=== PATIENT | female | born 1980 | race Caucasian/White ===

== ENCOUNTER 2018-10-02 19:55 | Outpatient (CLI) | payer MEDICAID, SELFPAY ==
[2018-10-02 20:15] VITALS: BMI 23.4
[2018-10-02 21:09] LABS: Color, Urine Yellow (Yellow); Glucose, Dipstick Normal (Normal); Ketone-Dipstick 15 mg/dl (Negative); Leukocyte Esterase-Dipstick 100 /ul (Negative); Nitrite-Dipstick Negative (Negative); Occult Blood-Urine 10 /ul (Negative); Protein-Dipstick Negative (Negative); Specific Gravity, Urine 1.015 (1.002-1.030); Urine Bilirubin Dipstick Negative (Negative); Urine Clarity Sl. Cloudy (Clear); Urine Urobilinogen Normal (Normal); Urine pH 6.5 (5.0 - 8.0)
[2018-10-02 21:16] LABS: Amorphous Sediment 1+ URATE; Bacteria 2+ /hpf (None Seen); Mucous, Urine 1+ /hpf (<or=2+); Red Blood Cells-Urine 0-5 SEEN /hpf (0-5); Squamous Epithelial Cells - UA 0-5 SEEN /hpf (5-10); White Blood Cells 10-25 SEEN /hpf (0-5)
[2018-10-02 22:40] VITALS: RESP 18
--- NOTE | 2018-10-21 13:08 | OB.TRI.NOTE ---
History of Present Illness Reason For Visit: R/O LABOR Final SELVIN Source: LMP Allergies No Known Allergies Allergy (Verified 10/11/18 17:17) Laboratory Studies: Laboratory Tests 10/02/18 Range/Units 20:00 Urine Color Yellow (Yellow) Urine Clarity Sl. Cloudy (Clear) Urine pH 6.5 (5.0 - 8.0) Ur Specific [place] 1.015 (1.002-1.030) Urine Protein Negative (Negative) mg/dl Urine Glucose (UA) Normal (Normal) mg/dl Urine Ketones 15 H (Negative) mg/dl Urine Occult Blood 10 H (Negative) /ul Urine Nitrite Negative (Negative) Urine Bilirubin Negative (Negative) mg/dL Urine Urobilinogen Normal (Normal) mg/dl Ur Leukocyte Esterase 100 H (Negative) /ul Urine RBC 0-5 SEEN (0-5) /hpf Urine WBC 10-25 SEEN (0-5) /hpf Ur Squamous Epith Cells 0-5 SEEN (5-10) /hpf Amorphous Sediment 1+ URATE Urine Bacteria 2+ (None Seen) /hpf Urine Mucus 1+ (<or=2+) /hpf Physical Exam Vitals: Vital Signs Resp 18 10/02/18 22:40 Impression/Plan NST for false labor
--- OUTSIDE RECORDS SUMMARY | 2018-12-07 12:47 | XMS RPT_ITS ---
:1980 Author Organization OH[facility] Care Team Providers Name Role Phone SAMMI GRUBERNTOSH, ALMA Attending Unavailable NEYHART ESTRELLA, ALMA Attending Unavailable NEYHART ESTRELLA, ALMA Referring Unavailable JOHN POWERS Attending Unavailable NEYHART ESTRELLA, ALMA Referring Unavailable NEYHART ESTRELLA, ALMA Attending Unavailable NEYHART ESTRELLA, ALMA Referring Unavailable NEYHART ESTRELLA, ALMA Referring Unavailable NEYHART ESTRELLA, ALMA Attending Unavailable EULALIA BENAVIDEZ (MURAL ARTIST) Referring Unavailable NEYHART ESTRELLA, ALMA Referring Unavailable NEYHART ESTRELLA, ALMA Referring Unavailable NEYHART ESTRELLA, ALMA Referring Unavailable NEYHART ESTRELLA, ALMA Referring Unavailable NEYHART ESTRELLA, ALMA Attending Unavailable NEYHART ESTRELLA, ALMA Referring Unavailable POWERSSAVITAJOHN A Attending Unavailable NEYHART ESTRELLA, ALMA Referring Unavailable NEYHART ESTRELLA, ALMA Attending Unavailable NEYHART ESTRELLA, ALMA Referring Unavailable NEYHART ESTRELLA, ALMA Referring Unavailable NEYHART ESTRELLA, ALMA Attending Unavailable NEYHART ESTRELLA, ALMA Attending Unavailable NEYHART ESTRELLA, ALMA Referring Unavailable JOHN POWERS Attending Unavailable NEYHART ESTRELLA, ALMA Referring Unavailable NEYHART ESTRELLA, ALMA Attending Unavailable NEYHART ESTRELLA, ALMA Referring Unavailable NEYHART ESTRELLA, ALMA Attending Unavailable NEYHART ESTRELLA, ALMA Referring Unavailable NEYHART ESTRELLA, ALMA Referring Unavailable NEYHART ESTRELLA, ALMA Referring Unavailable NEYHART ESTRELLA, ALMA Referring Unavailable Barrera Lock Attending Unavailable Barrera Lock Referring Unavailable Primay Care Physicia, No Primary Care Unavailable Primay Care Physicia, No Primary Care Unavailable Norma Hatch Admitting Unavailable Norma Hatch Attending Unavailable PROBLEMS PROBLEMS DATE TYPE CONDITION / CODE ATTENDING STATUS SOURCE 08/13/2018 Active Anemia complicating NA Active [facility] , third [place] trimester / Repository O99.013(ICD-10) 09/15/2018 Active Supervision of NA Active [facility] elderly [place] multigravida, third Repository trimester / O09.523(ICD-10) 09/15/2018 Active 33 weeks gestation NA Active [facility] of / [place] Z3A.33(ICD-10) Repository 08/12/2018 Active Supervision of NA Active [facility] elderly [facility] [place] multigravida, second Repository trimester / O09.522(ICD-10) 08/12/2018 Active 28 weeks gestation NA Active [facility] of / [place] Z3A.28(ICD-10) Repository 05/03/2016 Active Family history of NA Active [facility] other congenital [place] malformations, Repository deformations and chromosomal abnormalities / Z82.79(ICD-10) 06/13/2018 Active Maternal care for NA Active [facility] other abnormalities [place] of cervix, Repository unspecified trimester / O34.40(ICD-10) 06/13/2018 Active Other specified NA Active [facility] postprocedural [place] states / Repository Z98.890(ICD-10) 06/13/2018 Active 18 weeks gestation NA Active [facility] of / [place] Z3A.18(ICD-10) Repository 04/01/2018 Active Personal history of NA Active [facility] other complications [place] of , Repository childbirth and the puerperium / Z87.59(ICD-10) 04/23/2018 Active Supervision of NA Active [facility] elderly [place] multigravida, first Repository trimester / O09.521(ICD-10) 04/23/2018 Active Supervision of high NA [facility] risk , [place] unspecified, first Repository trimester / O09.91(ICD-10) 04/01/2018 Active Unknown / NEYHART Active [facility] UNK(Unknown) ESTRELLA, [place] ALMA Repository PROCEDURES PROCEDURES No Procedure Records FoundRESULTS RESULTS OPERATIVE REPORT Observed: 10/11/2018 Status: F Source: [place] 9:25 PM [facility] REPOSITORY [facility] Medical Records Department [address] [place] [address] Operative Report 10/11/182113 MR#: [id number] Acct: [id number] Name: SEEMA LONGO Rep #: [id number] : 1980 38 From: Leydi Nash CNM PCP: Care Physician, No Primary Status: ADM IN Location: GX120-3 - Problem List (1) AMA (advanced maternal age) multigravida 35+ Status: Acute (2) History of cervical LEEP biopsy affecting care of mother, antepartum Status: Acute (3) History of gestational hypertension Status: Acute (4) Anemia affecting Status: Acute Vaginal Delivery Maternal Presentation: Active Labor Amniotic Membrane Rupture Type: Artificial Amniotic Fluid Description: Clear Final SELVIN: 10/30/18 Gestational age: 37 Weeks and 2 Days Date of Procedure: 10/11/18 Pre-Operative Diagnosis: Active Labor Post-Operative Diagnosis: Surgery/ Procedure Performed: Spontaneous Vaginal Delivery Type of Anesthesia: None Description of Procedure: Progressed to complete with urge to push, unmedicated. of viable female infant over 1st degree perineal laceration. APGARS 9,9 with weight pending. Infant head delivered with tight nuchal cord around neck, unable to be reduced. Maternal pushing efforts and delivered through nuchal cord without complications. Infant placed on maternal abdomen, spontaneous cry, mouth and nares suctioned for secretions. Pitocin started for active 3rd stage management. Placenta delivered with maternal effort, intact, 2 vessel cord. Perineum inspected and revealed 1st degree perineal laceration. Repaired with single figure eight suture without analgesia, patient tolerated well. Fundus firm, hemostasis achieved, EBL 100ml. Mom and baby stable, planning to breastfeed, family bonding well. notified of delivery. Presentation: Vertex, PANDA Placental Delivery Description: Spontaneous Placenta Disposition: [facility] Cord Vessel Description: 2 Vessels Nuchal Cord Compression: Without compression Cord Entanglement: Around neck x 1, tight Estimated Blood Loss: 100ml A gender: Female (1 minute): 9 (5 minute): 9 Episiotomy Description: None Laceration: Perineal Extension/lac, 1st degree Medications given after delivery: IV Pitocin 10/11/182124 <Electronically signed by Leydi Nash CNM> Date Leydi Nash CNM CC: YULISA Nash; No Primary Care Physician Signed CBC-COMPLETE BLOOD CNT Collected: 10/11/2018 Status: F Source: [place] NO DIFF 5:45 PM [facility] REPOSITORY TYPE CODE TESTS RESULT OUT OF RANGE REFERENCE UNITS LAB L100.1000 4.4-11.0 K/mm3 Normal WBC 6.4 LAB L100.1200 4.2-5.4 M/mm3 Normal RBC 4.30 LAB L100.1300 12.0-15.0 g/dl Low HGB 10.8 LAB L100.1400 37-47 % Low HCT 34.8 LAB L100.1500 81-99 fL Low MCV 80.9 LAB L100.1600 27.0-32.0 pg Low MCH 25.1 LAB L100.1700 32-36 g/gl Low MCHC 31.0 LAB L100.1810 11.6-14.6 % High RDW CV 20.7 LAB L100.1820 35.1-43.9 fl High RDW SD 58.2 LAB L100.1900 150-450 K/mm3 Low PLT 146 LAB L100.2000 6.2-12.0 fl Normal MPV 10.8 Performed By: #### L100.0500, L100.4500 #### [facility] [address] [place], [address] DIFFERENTIAL COMMENT Collected: 10/11/2018 Status: F Source: [place] 5:45 PM [facility] REPOSITORY TYPE CODE TESTS RESULT OUT OF RANGE REFERENCE UNITS LAB L100.4500 Normal SMEAR COMMENT SEE COMMENT Result Comment: ANISOCYTOSIS=1+ Performed By: #### L100.0500, L100.4500 #### [facility] [address] [place], [address] TYPE AND SCREEN Collected: 10/11/2018 Status: F Source: [place] 5:45 PM [facility] REPOSITORY Order Comment: Reason for Type AND Screen/Red Cells: ROUTINE TYPE CODE TESTS RESULT OUT OF RANGE REFERENCE UNITS LAB B10.0800 O Normal BLOOD TYPE GEL NEGATIVE LAB B100.4000 Test Normal Antibody not performed Screen Performed By: #### B101.7450 #### [facility] [address] [place], [address] ANTIBODY SCREEN, Collected: 10/11/2018 Status: F Source: [place] INDIRECT 5:45 PM [facility] REPOSITORY TYPE CODE TESTS RESULT OUT OF RANGE REFERENCE UNITS LAB B100.7000 Normal ANTIBODY NEGATIVE SCREEN Performed By: #### B100.7000 #### [facility] [address] [place], [address] (ROM) RUPTURE OF Collected: 10/11/2018 Status: F Source: [place] 4:40 PM [facility] REPOSITORY TYPE CODE TESTS RESULT OUT OF RANGE REFERENCE UNITS LAB L205.1310 Negative Normal ROM Negative Result Comment: Amniotic fluid not present indicates No Rupture of Membranes at time of specimen collection. Performed By: #### L205.1000 #### [facility] [address] [place], [address] PROGRESS Observed: 10/07/2018 Status: COMPLETED Source: [place] 11:44 AM [facility] REPOSITORY HNO ID: [id number] Author: Alma Estrella Service: (none) Author Type: Physician Type: Progress Notes Filed: 10/07/2018 11:44 AM Note Text: NST SUMMARY PROVIDER ASSESSMENT AND INTERPRETATION Seema Longo is a 38 year old female, , who is at 36w5d with an SELVIN of 10/30/2018, by Last Menstrual Period dating method. Indications for NST: AMA Baseline: 145 Variability: Moderate Accelerations: Present 15 X 15 Decelerations: None Contractions: TOCO: Irregular Interpretation: Category I and Reactive SIGNATURE: Alma Conteh MD Observed: 10/02/2018 Status: F Source: [place] CULTURE, URINE 9:40 PM [facility] REPOSITORY Urine Culture Below infection level. ORGANISM 1: Mixed Gram Positive Organisms [place] Count <1000 Performed By: #### M100.0650 #### [facility] [address] [place], [address] URINALYSIS, COMPLETE Collected: 10/02/2018 Status: F Source: [place] 8:00 PM [facility] REPOSITORY Order Comment: How was Urine Obtained? CLEAN CATCH TYPE CODE TESTS RESULT OUT OF RANGE REFERENCE UNITS LAB L400.3000 Yellow COLOR Normal Yellow LAB L400.3050 Clear Normal CLARITY Sl. Cloudy LAB L400.3200 Normal mg/dl Normal GLUCOSE, UR Normal LAB L400.3300 Negative mg/dL Normal BILIRUBIN URINE Negative LAB L400.3400 Negative mg/dl High 15 KETONE UR LAB L400.3465 1.002-1.030 Normal SP.GR. DIPSTX 1.015 LAB L400.3550 5.0 - 8.0 pH UR Normal 6.5 LAB L400.3600 Negative mg/dl PROT Normal DIPSTX Negative LAB L400.3700 Normal mg/dl Normal UROBILI Normal LAB L400.3750 Negative Normal NITRITE UR Negative LAB L400.3780 Negative /ul High 10 OCCULT BLOOD-UR LAB L400.3800 Negative /ul High LEUK ESTERASE 100 LAB L400.4050 0-5 /hpf WBC Normal 10-25 SEEN LAB L400.4100 0-5 /hpf Normal RBC-UA 0-5 SEEN LAB L400.4150 5-10 /hpf SQUAM Normal EPI 0-5 SEEN LAB L400.4300 None Seen /hpf 2+ Normal BACTERIA LAB L400.4350 <or=2+ /hpf 1+ Normal MUCUS, URINE LAB L400.4900 1+ Normal AMORPHOUS URATE Performed By: #### L400.0001 #### [facility] [address] [place], [address] PROGRESS Observed: 09/30/2018 Status: COMPLETED Source: [place] 11:48 AM [facility] REPOSITORY HNO ID: [id number] Author: Asya Crews LPN Service: (none) Author Type: (none) Type: Progress Notes Filed: 09/30/2018 11:54 AM Note Text: The patient is here for an injection of Celestone. Dose: 12mg/2mL Amount wasted: 0. 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 Lot #: [id number] Expiration Date: 09/15/2019 Asya Crews LPN CNNURSE Observed: 09/30/2018 Status: COMPLETED Source: [place] 11:30 AM [facility] REPOSITORY Nurse Visit (WOOB) SEEMA LONGO ([id number]) 1980 F Date Time Provider Department 09/30/18 11:30 AM [employer]URSE [employer] OFFICER [facility] During your visit today, we recorded the following information about you: Asya Crews LPN 09/30/2018 11:54 AM Signed The patient is here for an injection of Celestone. Dose: 12mg/2mL Amount wasted: 0. 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 Lot #: [id number] Expiration Date: 09/15/2019 Asya Crews LPN Referring Provider: ALMA PIKE [[id number]] Allergies As of Date: 09/30/2018 Noted Allergy Reaction POISON CHARLIE 02/08/2015 2 - Rash Date Reviewed: 09/29/2018 Reviewed by: Lorin Trejo Ma - Fully Assessed Reason for Visit: Injections [199] Primary Visit Diagnosis:Threatened premature labor in third trimester [O47.03] Order(s):THER/PROPH/DIAG INJ, SC/IM [[id number]] Order #: [id number] Prescriptions as of 09/30/2018 Sig: FAMOTIDINE 20 MG TABLET Take 1 tablet by mouth twice * FERROUS SULFATE ER 142 MG (45* Take 1 tablet by mouth once d* VITAMIN,CALCIUM,MINE* Take 1 tablet by mouth. Problem List As Of Date 09/30/2018 Noted Resolved Contraception [Z30.9] INVALID FOR*05/02/2012 Hemorrhagic cyst of ovary [N83.209] INVALID FOR*02/06/2013 Abdominal pain, bilateral lower quadrant [R10.3*INVALID FOR*02/06/2013 with uncertain dates [Z34.90] INVALID FOR*02/06/2013 More... Hemorrhoids [K64.9] INVALID FOR*04/27/2013 More... Family history of Down syndrome [Z82.79] INVALID FOR*04/27/2013 More... History of LEEP (loop electrosurgical excision *INVALID FOR*04/27/2013 More... Immunization due [Z23] INVALID FOR*02/06/2013 More... Threatened [O20.0] INVALID FOR*02/06/2013 More... UTI (urinary tract infection) during *INVALID FOR*04/27/2013 More... Gastroesophageal reflux in pregancy [O99.619, K*INVALID FOR*04/27/2013 SUPRF HIGH RISK NEC [V23.89] [O09.899]INVALID FOR*04/27/2013 More... Advanced maternal age (AMA) in [IMO00*INVALID FOR*09/01/2014 More... Short interval between pregnancies complicating*INVALID FOR*09/01/2014 More... Breast feeding status of mother [Z39.1] INVALID FOR*09/01/2014 More... Prior complicated by IUGR, antepartum*INVALID FOR*09/01/2014 More... History of LEEP (loop electrosurgical excision *INVALID FOR*05/03/2016 More... History of hemorrhoids [Z87.19] INVALID FOR*09/01/2014 More... Family history of Down syndrome [Z82.79] INVALID FOR*09/01/2014 More... Need for rhogam due to Rh negative mother [Z29.*INVALID FOR*09/01/2014 GBS (group B streptococcus) UTI complicating pr*INVALID FOR*09/01/2014 More... Allergy to poison charlie [Z91.09] INVALID FOR*09/01/2014 More... labor [O60.00] INVALID FOR*09/01/2014 More... Secondary oligomenorrhea [N91.4] INVALID FOR*03/09/2016 Advanced maternal age in multigravida [O09.529] INVALID FOR* More... Patient requested diagnostic testing [Z01.89] INVALID FOR* More... History of prior with IUGR [Z*INVALID FOR* More... History of loop electrosurgical excision proced*INVALID FOR* More... History of colitis [Z87.19] INVALID FOR* More... Family history of Down syndrome [Z82.79] INVALID FOR* More... Nausea and vomiting in [O21.9] INVALID FOR* More... Rh negative status during [O09.899, Z*INVALID FOR* More... History of gestational hypertension [Z87.59] INVALID FOR* More... Anemia during in third trimester [O99*INVALID FOR* More... Iron deficiency anemia [D50.9] INVALID FOR* Iron adverse reaction [T45.4X5A] INVALID FOR* More... Encounter Status:Closed by ASYA CREWS LPN on 09/30/18 GROUP B STREP PCR Collected: 09/29/2018 Status: F Source: [place] 11:15 AM [facility] REPOSITORY TYPE CODE TESTS RESULT OUT OF REFERENCE UNITS RANGE LAB GBPCRT Negative for GROUP Group B B STREP PCR Streptococcus by PCR. Performed By: #### GBPCR #### [facility] [address] [place], [place] [address] PROGRESS Observed: 09/21/2018 Status: COMPLETED Source: [place] 11:46 AM [facility] REPOSITORY HNO ID: [id number] Author: Eulalia Benavidez Service: (none) Author Type: Nurse Practitioner Type: Progress Notes Filed: 09/21/2018 12:54 PM Note Text: Subjective The history is provided by the patient. No seismic interpreter was used. HPI Seema Longo is a 38 year old female who presents today for CC of cough and congestion that started 7 days ago. She has been using tylenol and robitussin with short term relief. 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 + movement, no bleeding or LOF BP 102/78 Pulse 119 Temp 37.2 ?C (98.9 ?F) (Tympanic) Resp 16 Wt 56.2 kg (124 lb) LMP 01/23/2018 SpO2 99% BMI 21.97 kg/m? 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 Pap smear (cervix) - Anemia during in third trimester 08/13/2018 - Colitis - Hemorrhoids - Infertility, female - Other and unspecified ovarian cyst Ovarian cyst I have confirmed and edited as necessary, the [facility] Review of Systems Constitutional: Negative for chills and fever. HENT: Positive for congestion. Negative for ear pain, sinus pain and sore throat. Respiratory: Positive for cough. Musculoskeletal: Negative for myalgias. Neurological: Negative for headaches. Objective Physical Exam Constitutional: She is well-developed, well-nourished, and in no distress. HENT: Head: Normocephalic and atraumatic. Right Ear: Tympanic membrane, external ear and ear canal normal. Left Ear: Tympanic membrane and ear canal normal. Nose: Mucosal edema and rhinorrhea present. Mouth/Throat: Uvula is midline, oropharynx is clear and moist and mucous membranes are normal. No oropharyngeal exudate, posterior oropharyngeal edema, posterior oropharyngeal erythema or tonsillar abscesses. Thin Clear Post Nasal Drainage Pulmonary/Chest: Effort normal and breath sounds normal. She has no decreased breath sounds. She has no wheezes. She has no rhonchi. She has no rales. Lymphadenopathy: Head (right side): No submental, no submandibular and no tonsillar adenopathy present. Head (left side): No submental, no submandibular and no tonsillar adenopathy present. She has no cervical adenopathy. Right cervical: No superficial cervical adenopathy present. Left cervical: No superficial cervical adenopathy present. Neurological: She is alert. Skin: Skin is warm and dry. Psychiatric: Affect normal. Nursing note and vitals reviewed. ASSESSMENT/PLAN: 1. URI with cough and congestion - ICD9: 465.9, ICD10: J06.9 - Discussed viral etiology and rationale for treatment. Rest, increase water intake Tylenol as needed for fever or pain. Salt water gargles, chloraseptic spray or lozenges as needed for sore throat. Nasal Saline spray as needed Cool mist humidifier at night Tylenol (generic acetaminophen) 500 mg-2 tabs every 8 hrs. as needed for fever and aches -Sudafed (generic is fine), behind the counter, 1-2x30 mg tabs twice daily as needed for congestion Flonase or Nasonex 1 spray each nostril two times a day. safe medication list given. * Seek medical care immediately, call 911, go to ER if you have chest pain, difficulty breathing, shortness of breath, inability to swallow. Diagnosis and treatment plan were discussed and questions were answered to the patient's satisfaction. Pt acknowledged understanding of concepts and follow up plan. Specific signs and symptoms that would indicate the need for higher level of care were discussed in detail warranting prompt ER evaluation. Eulalia Benavidez APRN.MURAL ARTIST CNOV Observed: 09/21/2018 Status: COMPLETED Source: [place] 11:30 AM [facility] REPOSITORY [facility] SE[facility]ON[facility] ([id number]) 1980 F Date Time Provider Department 09/21/18 11:30 AM EULALIA BENAVIDEZ (POLA) [email or web address] During your visit today, we recorded the following information about you: Temperature Pulse Respiration Blood pressure 98.9 degrees 119/minute 16/minute 102/78 Weight 56.2 kg Eulalia Benavidez APRN.CNP 09/21/2018 12:54 PM Signed Subjective The history is provided by the patient. No seismic interpreter was used. HPI Seema Longo is a 38 year old female who presents today for CC of cough and congestion that started 7 days ago. She has been using tylenol and robitussin with short term relief. 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 + movement, no bleeding or LOF BP 102/78 Pulse 119 Temp 37.2 ?C (98.9 ?F) (Tympanic) Resp 16 Wt 56.2 kg (124 lb) LMP 01/23/2018 SpO2 99% BMI 21.97 kg/m? 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 Pap smear (cervix) - Anemia during in third trimester 08/13/2018 - Colitis - Hemorrhoids - Infertility, female - Other and unspecified ovarian cyst Ovarian cyst I have confirmed and edited as necessary, the [facility] Review of Systems Constitutional: Negative for chills and fever. HENT: Positive for congestion. Negative for ear pain, sinus pain and sore throat. Respiratory: Positive for cough. Musculoskeletal: Negative for myalgias. Neurological: Negative for headaches. Objective Physical Exam Constitutional: She is well-developed, well-nourished, and in no distress. HENT: Head: Normocephalic and atraumatic. Right Ear: Tympanic membrane, external ear and ear canal normal. Left Ear: Tympanic membrane and ear canal normal. Nose: Mucosal edema and rhinorrhea present. Mouth/Throat: Uvula is midline, oropharynx is clear and moist and mucous membranes are normal. No oropharyngeal exudate, posterior oropharyngeal edema, posterior oropharyngeal erythema or tonsillar abscesses. Thin Clear Post Nasal Drainage Pulmonary/Chest: Effort normal and breath sounds normal. She has no decreased breath sounds. She has no wheezes. She has no rhonchi. She has no rales. Lymphadenopathy: Head (right side): No submental, no submandibular and no tonsillar adenopathy present. Head (left side): No submental, no submandibular and no tonsillar adenopathy present. She has no cervical adenopathy. Right cervical: No superficial cervical adenopathy present. Left cervical: No superficial cervical adenopathy present. Neurological: She is alert. Skin: Skin is warm and dry. Psychiatric: Affect normal. Nursing note and vitals reviewed. ASSESSMENT/PLAN: 1. URI with cough and congestion - ICD9: 465.9, ICD10: J06.9 - Discussed viral etiology and rationale for treatment. Rest, increase water intake Tylenol as needed for fever or pain. Salt water gargles, chloraseptic spray or lozenges as needed for sore throat. Nasal Saline spray as needed Cool mist humidifier at night Tylenol (generic acetaminophen) 500 mg-2 tabs every 8 hrs. as needed for fever and aches -Sudafed (generic is fine), behind the counter, 1-2x30 mg tabs twice daily as needed for congestion Flonase or Nasonex 1 spray each nostril two times a day. safe medication list given. * Seek medical care immediately, call 911, go to ER if you have chest pain, difficulty breathing, shortness of breath, inability to swallow. Diagnosis and treatment plan were discussed and questions were answered to the patient's satisfaction. Pt acknowledged understanding of concepts and follow up plan. Specific signs and symptoms that would indicate the need for higher level of care were discussed in detail warranting prompt ER evaluation. Eulalia Benavidez APRN.POLA Benavidez APRN.CNP 09/21/2018 11:59 AM Signed ASSESSMENT/PLAN: 1. URI with cough and congestion - ICD9: 465.9, ICD10: J06.9 - Discussed viral etiology and rationale for treatment. Rest, increase water intake Tylenol as needed for fever or pain. Salt water gargles, chloraseptic spray or lozenges as needed for sore throat. Nasal Saline spray as needed Cool mist humidifier at night Tylenol (generic acetaminophen) 500 mg-2 tabs every 8 hrs. as needed for fever and aches -Sudafed (generic is fine), behind the counter, 1-2x30 mg tabs twice daily as needed for congestion Flonase or Nasonex 1 spray each nostril two times a day. Referring Provider: SELF [200] Allergies As of Date: 09/21/2018 Noted Allergy Reaction POISON CHARLIE 02/08/2015 2 - Rash Date Reviewed: 09/21/2018 Reviewed by: Eulalia ([facility]) Reema - Fully Assessed Reason for Visit: Cough [28] Cmt: x1 wk with some SOB; wants to make sure her of O2 is ok Primary Visit Diagnosis:URI with cough and congestion [J06.9] Prescriptions as of 09/21/2018 Sig: FAMOTIDINE 20 MG TABLET Take 1 tablet by mouth twice * FERROUS SULFATE ER 142 MG (45* Take 1 tablet by mouth once d* VITAMIN,CALCIUM,MINE* Take 1 tablet by mouth. Problem List As Of Date 09/21/2018 Noted Resolved Contraception [Z30.9] INVALID FOR*05/02/2012 Hemorrhagic cyst of ovary [N83.209] INVALID FOR*02/06/2013 Abdominal pain, bilateral lower quadrant [R10.3*INVALID FOR*02/06/2013 with uncertain dates [Z34.90] INVALID FOR*02/06/2013 More... Hemorrhoids [K64.9] INVALID FOR*04/27/2013 More... Family history of Down syndrome [Z82.79] INVALID FOR*04/27/2013 More... History of LEEP (loop electrosurgical excision *INVALID FOR*04/27/2013 More... Immunization due [Z23] INVALID FOR*02/06/2013 More... Threatened [O20.0] INVALID FOR*02/06/2013 More... UTI (urinary tract infection) during *INVALID FOR*04/27/2013 More... Gastroesophageal reflux in pregancy [O99.619, K*INVALID FOR*04/27/2013 SUPRF HIGH RISK NEC [V23.89] [O09.899]INVALID FOR*04/27/2013 More... Advanced maternal age (AMA) in [IMO00*INVALID FOR*09/01/2014 More... Short interval between pregnancies complicating*INVALID FOR*09/01/2014 More... Breast feeding status of mother [Z39.1] INVALID FOR*09/01/2014 More... Prior complicated by IUGR, antepartum*INVALID FOR*09/01/2014 More... History of LEEP (loop electrosurgical excision *INVALID FOR*05/03/2016 More... History of hemorrhoids [Z87.19] INVALID FOR*09/01/2014 More... Family history of Down syndrome [Z82.79] INVALID FOR*09/01/2014 More... Need for rhogam due to Rh negative mother [Z29.*INVALID FOR*09/01/2014 GBS (group B streptococcus) UTI complicating pr*INVALID FOR*09/01/2014 More... Allergy to poison charlie [Z91.09] INVALID FOR*09/01/2014 More... labor [O60.00] INVALID FOR*09/01/2014 More... Secondary oligomenorrhea [N91.4] INVALID FOR*03/09/2016 Advanced maternal age in multigravida [O09.529] INVALID FOR* More... Patient requested diagnostic testing [Z01.89] INVALID FOR* More... History of prior with IUGR [Z*INVALID FOR* More... History of loop electrosurgical excision proced*INVALID FOR* More... History of colitis [Z87.19] INVALID FOR* More... Family history of Down syndrome [Z82.79] INVALID FOR* More... Nausea and vomiting in [O21.9] INVALID FOR* More... Rh negative status during [O09.899, Z*INVALID FOR* More... History of gestational hypertension [Z87.59] INVALID FOR* More... Anemia during in third trimester [O99*INVALID FOR* More... Other instructions from your clinician: ASSESSMENT/PLAN: 1. URI with cough and congestion - ICD9: 465.9, ICD10: J06.9 - Discussed viral etiology and rationale for treatment. Rest, increase water intake Tylenol as needed for fever or pain. Salt water gargles, chloraseptic spray or lozenges as needed for sore throat. Nasal Saline spray as needed Cool mist humidifier at night Tylenol (generic acetaminophen) 500 mg-2 tabs every 8 hrs. as needed for fever and aches -Sudafed (generic is fine), behind the counter, 1-2x30 mg tabs twice daily as needed for congestion Flonase or Nasonex 1 spray each nostril two times a day. Encounter Status:Closed by EULALIA BENAVIDEZ CNP on 09/21/18 IRON AND TIBC Collected: 09/17/2018 Status: F Source: [place] 10:25 AM [facility] REPOSITORY TYPE CODE TESTS RESULT OUT OF REFERENCE UNITS RANGE LAB IRN 41-186 ug/dL Low Iron 21 LAB TIBC 232-386 ug/dL TIBC High >521 LAB SAT 15-57 % Low Transferrin Saturatn <4 Performed By: #### IRON, FERR #### [facility] [address] [address] FERRITIN Collected: 09/17/2018 Status: F Source: [place] 10:25 AM [facility] REPOSITORY TYPE CODE TESTS RESULT OUT OF REFERENCE UNITS RANGE LAB FERR 14.7-205.1 ng/mL Low Ferritin 12.8 Performed By: #### IRON, FERR #### [facility] [address] [place] [address] CBC AND DIFFERENTIAL Collected: 09/15/2018 Status: F Source: [place] 10:38 AM [facility] REPOSITORY TYPE CODE TESTS RESULT OUT OF REFERENCE UNITS RANGE LAB WBC 3.70-11.00 k/uL WBC 8.72 LAB RBC 3.90-5.20 m/uL Low RBC 3.78 LAB HGB 11.5-15.5 g/dL Low Hemoglobin 9.1 LAB HCT 36.0-46.0 % Low Hematocrit 29.7 LAB MCV 80.0-100.0 fL Low MCV 78.6 LAB MCH 26.0-34.0 pG Low MCH 24.1 LAB MCHC 30.5-36.0 g/dL MCHC 30.6 LAB RDWCV 11.5-15.0 % RDW-CV 13.1 LAB PLTCT 150-400 k/uL Platelet Count 194 LAB MPV 9.0-12.7 fL MPV 11.3 LAB ANEUT % Neut% 74.5 LAB AANEUT 1.45-7.50 k/uL Abs Neut 6.50 LAB ALYMP % Lymph% 15.5 LAB AALYMP 1.00-4.00 k/uL Abs Lymph 1.35 LAB AMONO % [place]% 6.2 LAB AAMONO <0.87 k/uL Abs [place] 0.54 LAB AEOS % Eosin% 3.1 LAB AAEOS <0.46 k/uL Abs Eosin 0.27 LAB ABASO % Baso% 0.7 LAB AABASO <0.11 k/uL Abs Baso 0.06 LAB AUNRBC 0 /100 WBC NRBCs 0.0 LAB ABNRBC <0.01 k/uL Absolute nRBC <0.01 LAB DTYP DTYPE Auto Diff Performed By: #### CBCDIF #### [facility] [address] [place], [place] [address] PROGRESS Observed: 09/15/2018 Status: COMPLETED Source: [place] 10:28 AM [facility] REPOSITORY HNO ID: [id number] Author: John Powers Service: (none) Author Type: Physician Type: Progress Notes Filed: 09/15/2018 10:32 AM Note Text: A morin intrauterine The size is AGA at the 23 rd% The HC measures < 5 th% (at 1 SD below th mean for the gestational age). The intracranial anatomy appears normal. This is a normal variant Estimated Date of Delivery: 10/30/18 EGA = 33w4d The anatomy appears normal in the areas visualized. The amniotic fluid volume is normal. There is no evidence of effusions and/ or hydrops. The placenta is fundal. RECOMMENDATIONS: - Self-assessment of kick counts - Follow up ultrasound as clinically indicated PROGRESS Observed: 09/15/2018 Status: COMPLETED Source: [place] 10:17 AM [facility] REPOSITORY HNO ID: [id number] Author: oLrin Trejo Ma Service: (none) Author Type: (none) Type: Progress Notes Filed: 09/15/2018 11:24 AM Note Text: Patient identified by name and date of . Seema Longo presents today for a vaccination of Tdap. Patient denies an allergy to latex: yes Patient denies a severe (life-threatening) allergy to a previous dose of Tdap, DTP, DTaP, DT or Td vaccine. Yes Patient denies history of epilepsy or neurological problems: Yes Patient is afebrile and denies being moderately or severely ill: Yes Patient denies history of Guillain-[place] Syndrome (a severe paralytic illness): Yes Tdap Adacel injection was given without incident. See immunizations for details of immunizations administered today. VIS sheet provided: Yes Provider carla was present in office at time of injection. Lorin Trejo Ma CBC AND DIFFERENTIAL Collected: 08/12/2018 Status: F Source: [place] 10:26 AM [facility] REPOSITORY TYPE CODE TESTS RESULT OUT OF REFERENCE UNITS RANGE LAB WBC 3.70-11.00 k/uL WBC 7.29 LAB RBC 3.90-5.20 m/uL Low RBC 3.72 LAB HGB 11.5-15.5 g/dL Low Hemoglobin 9.7 LAB HCT 36.0-46.0 % Low Hematocrit 30.2 LAB MCV 80.0-100.0 fL MCV 81.2 LAB MCH 26.0-34.0 pG MCH 26.1 LAB MCHC 30.5-36.0 g/dL MCHC 32.1 LAB RDWCV 11.5-15.0 % RDW-CV 11.9 LAB PLTCT 150-400 k/uL Platelet Count 196 LAB MPV 9.0-12.7 fL MPV 11.1 LAB ANEUT % Neut% 71.5 LAB AANEUT 1.45-7.50 k/uL Abs Neut 5.21 LAB ALYMP % Lymph% 18.7 LAB AALYMP 1.00-4.00 k/uL Abs Lymph 1.36 LAB AMONO % [place]% 6.3 LAB AAMONO <0.87 k/uL Abs [place] 0.46 LAB AEOS % Eosin% 2.7 LAB AAEOS <0.46 k/uL Abs Eosin 0.20 LAB ABASO % Baso% 0.8 LAB AABASO <0.11 k/uL Abs Baso 0.06 LAB AUNRBC 0 /100 WBC NRBCs 0.0 LAB ABNRBC <0.01 k/uL Absolute nRBC <0.01 LAB DTYP DTYPE Auto Diff Performed By: #### CBCDIF #### [facility] [address] [id number] 50G, 1HR GEST. Collected: 08/12/2018 Status: F Source: [place] [facility]CRN 10:26 AM [facility] REPOSITORY TYPE CODE TESTS RESULT OUT OF REFERENCE UNITS RANGE LAB GLUP 74-134 mg/dL Glucose 104 Screen, Preg Result Comment: [place] [employer] of [employer]stetric[employer] and Gynecologists (Rodgers/Alfonso) guidelines state a gestational diabetes mellitus positive screen is made, in women not previously diagnosed with overt diabetes, when the 1 hr plasma glucose level is equal to or above 140 mg/dL. The [facility] Commercial Account Officer and [facility] recommends a 135 mg/dL cutoff. Performed By: #### GLTGST #### [facility] [address] [place] [address] ANTIBODY SCREEN Collected: 08/12/2018 Status: F Source: [place] 10:26 AM [facility] REPOSITORY TYPE CODE TESTS RESULT OUT OF REFERENCE UNITS RANGE LAB % Antibody NEG Screen Performed By: #### ASCR #### [address] [place] [id number] PROGRESS Observed: 06/30/2018 Status: COMPLETED Source: [place] 10:22 AM [facility] REPOSITORY HNO ID: [id number] Author: Lorin Trejo Ma Service: (none) Author Type: (none) Type: Progress Notes Filed: 06/30/2018 10:54 AM Note Text: 38 year old female here for INACTIVATED INFLUENZA VACCINE. 0110-1323 Season Patient is identified by name and date of : Yes [] CONTRAINDICATIONS color enhanced section Age less than 6 months? No Allergy to eggs, chicken, chicken feathers, or chicken dander? No Allergy to thimerosal (a preservative) or formaldehyde, gelatin? No History of severe reaction to any vaccine component or a previous dose of influenza vaccination? No History of Guillain-[place] Syndrome within 6 weeks after a previous influenza vaccine? No Patient is not moderately or severely ill? No Current temperature greater or equal to 100.4F? No History of Bone Marrow Transplant prior 6 months or solid organ transplant in the past 3 months ? No History of fainting after a prior injection or medical procedure? No- ? If patient has fainted in the past, the CDC recommends sitting or lying down for 15 minutes after the vaccination. [] VERIFICATION color enhanced section Was the answer Yes for any of the above contraindications? No contraindications present. Acceptable to proceed with vaccine. Patient/guardian agrees the above answers are true to the best of their knowledge? Yes Flu vaccine information sheet given? Yes See immunization activity in [facility] for details of immunizations adminstered today. Patient age: [age] year old For The 9786-5594 Flu Season 6-35 months old: Fluzone 0.25 ml - IM (Preservative Free) 3 years of age: Fluzone 0.5 ml - IM (Preservative Free) 3 years and older: Fluzone 0.5 ml- IM-(with Preservatives) 65+ years old: 2-49 years old Fluzone High-Dose 0.5 ml - IM (Preservative Free) FLUMIST- intranasal REMEMBER: If patient is less than 9 years of age and this is the first vaccine of Influenza to be received in any flu season, they should receive a second dose in one months time. ALPHA FETO MATERNAL Collected: 06/13/2018 Status: F Source: [place] 11:05 AM [facility] REPOSITORY TYPE CODE TESTS RESULT OUT OF REFERENCE UNITS RANGE LAB PREINT Screen Negative Interp LAB AFPM View Note results in Scanned Documents link when available. Performed By: #### AFPMAT #### [facility] [address] [place], [place] [address] PROGRESS Observed: 06/04/2018 Status: COMPLETED Source: [place] 1:10 PM [facility] REPOSITORY HNO ID: [id number] Author: John Powers Service: (none) Author Type: Physician Type: Progress Notes Filed: 06/04/2018 1:11 PM Note Text: A morin? fetus in utero with symmetric measurements Adequate growth (AGA). Estimated Date of Delivery: 10/30/18 EGA = 18w6d The anatomy appears normal. There are no evident malformations and /or effusions. No genetic markers are noted. The amniotic fluid volume is within normal limits. The patient was counseled as to the sonographic findings. The limitations of ultrasound in detecting malformations and chromosomal anomalies has been addressed. Body mass index is 20.73 kg/m?. RECOMMENDATIONS: - Follow up ultrasound as clinically indicated - Genetic testing is negative NIPS. PROGRESS Observed: 04/23/2018 Status: COMPLETED Source: [place] 11:29 AM [facility] REPOSITORY HNO ID: [id number] Author: John Powers Service: (none) Author Type: Physician Type: Progress Notes Filed: 04/23/2018 11:30 AM Note Text: A single intrauterine gestational sac is noted with a regular outline. There is no decidual hemorrhage. The yolk sac is visualized and shows normal shape and echogenicity. A living single fetus is noted. The heart rate is within normal range The CRL corresponds to the gestational age. Estimated Date of Delivery: 10/30/18 EGA = 12w6d Negative NT screen for Trisomy 21. The sensitivity of nuchal translucency measurement for Trisomy 21 is ~60%. The anatomy appears normal in the areas visualized. The limitations of ultrasound have been discussed with the patient. RECOMMENDATIONS: - Seema is interested in NIPT. The test will be performed. If the results are positive, invasive genetic testing (CVS or genetic amniocentesis ) will be offered. - I recommend scan at 18-20 weeks - Consideration should be made for checking AFP between 15 and 22 weeks if screening for open neural tube defect is desired. [id number] PLUS Collected: 04/23/2018 Status: F Source: [place] 10:48 AM [facility] REPOSITORY TYPE CODE TESTS RESULT OUT OF REFERENCE UNITS RANGE LAB CHRM21 Chromosome 21 Negative LAB CHRM18 Chromosome 18 Negative LAB CHRM13 Chromosome 13 Negative LAB CHRMY Y Chromosome Not Detected LAB CHYINT Y Chromosome See Notes Interp Result Comment: (NOTE) Consistent with a female fetus. LAB AFIND Additional Findings N/A LAB AFINT Additnl Findings Int N/A LAB AFINTE Additnl Findings Nte N/A LAB MTINT MT21 Interpretation See Notes Result Comment: (NOTE) This specimen showed an expected representation of chromosome 21, 18 and 13 material. Clinical correlation is suggested. LAB LDNTE Sql Architect Nte See Notes Result Comment: (NOTE) Fraction: 12% LAB MTAPR MT21 Approval See Notes Result Comment: (NOTE) Henrique Zuniga MD, PhD LAB MTMETH Method See Notes Result Comment: (NOTE) Circulating cell-free DNA was purified from the plasma component of anti-coagulated maternal whole blood. It was then converted into a genomic DNA library for the determination of chromosome 21, 18, 13 representation and the presence of the Y chromosome.[1] Other chromosomal material, including sex chromosome (X and Y) representation, was also evaluated and will only be reported as an Additional Finding when an abnormality is detected. LAB MTABT About See the test Notes Result Comment: (NOTE) The SohengdB18 PLUS test analyzes circulating cell-free DNA extracted from a maternal blood sample. The test is indicated for use in women with increased risk for chromosomal aneuploidy. Validation data on twin pregnancies is limited and the ability of this test to detect aneuploidy in a triplet has not yet been validated. LAB MTPERF Performance See Notes Result Comment: (NOTE) The performance characteristics of the OhchhmuS45 PLUS laboratory-developed test (LDT) have been determined in a clinical validation study with women at increased risk for chromosomal aneuploidy.[1,2,3] LAB MTPERD Performance Data See Notes Result Comment: (NOTE) Trisomy 21 Sensitivity: 99.1%; CI: 96.3-99.8% Trisomy 21 Specificity: 99.9%; CI: 99.6-99.9% Trisomy 18 Sensitivity: >99.9%; CI: 92.4-100.0% Trisomy 18 Specificity: 99.6%; CI: 99.2-99.8% Trisomy 13 Sensitivity: 91.7%; CI: 59.7-99.6% Trisomy 13 Specificity: 99.7%; CI: 99.3-99.9% Y Chromosome Accuracy: 99.4%; CI: 99.0-99.6% LAB MTLMT Limitations See Notes Result Comment: (NOTE) DNA test results do not provide a definitive genetic risk in all individuals. Cell-free DNA does not replace the accuracy and precision of diagnosis with CVS or amniocentesis. These tests are not intended to identify pregnancies at risk for neural tube defects or ventral wall defects. A patient with a positive test result or presence of an Additional Finding should be referred for genetic counseling and offered invasive diagnosis for confirmation of test results.[4] A negative test result does not ensure an unaffected . The absence of an Additional Finding does not indicate a negative result. While results of this testing are highly accurate, not all chromosomal abnormalities may be detected due to placental, maternal or mosaicism, or other causes. Sex chromosomal aneuploidies are not reportable for known multiple gestations. The health care provider is responsible for the use of this information in the management of their patient. LAB MTNTE See Test Note Notes Result Comment: (NOTE) This test was developed and its performance characteristics determined by [facility]. It has not been cleared or approved by the U.S. FDA. This test is used for clinical purposes. It should not be regarded as investigational or for research. This laboratory is certified under the Clinical Laboratory Improvement Amendments (CLIA) as qualified to perform high complexity clinical laboratory testing and accredited by the [employer] [place] [employer]. LAB MTREF References See Notes Result Comment: (NOTE) 1. Elodia MENDOZA, et al. Simin Med. 2012;14(3):296-305. 2. Elodia MENDOZA, et al. Simin Med. 2011;13(11):913-920. 3. Cesar MEEK et al. Prenat Diag. 2013;33(6):591-597. 4. ACOG/SMFM Joint Committee Opinion No. 545, Aug 2012. CBC Collected: 04/23/2018 Status: F Source: [place] 10:30 AM [facility] REPOSITORY TYPE CODE TESTS RESULT OUT OF REFERENCE UNITS RANGE LAB WBC 3.70-11.00 k/uL WBC 6.13 LAB RBC 3.90-5.20 m/uL RBC 4.25 LAB HGB 11.5-15.5 g/dL Hemoglobin 12.1 LAB HCT 36.0-46.0 % Hematocrit 36.7 LAB MCV 80.0-100.0 fL MCV 86.4 LAB MCH 26.0-34.0 pG MCH 28.5 LAB MCHC 30.5-36.0 g/dL MCHC 33.0 LAB RDWCV 11.5-15.0 % RDW-CV 13.5 LAB PLTCT 150-400 k/uL Platelet Count 234 LAB MPV 9.0-12.7 fL MPV 10.4 LAB ABSNUC <0.01 k/uL Absolute nRBC <0.01 Performed By: #### CBC, RUBIGG, HFP, HBSAG, HIV12C, SYPHGX #### [facility] [address] [place], [place] [address] RUBELLA IGG ANTIBODY Collected: 04/23/2018 Status: F Source: [place] 10:30 AM [facility] REPOSITORY TYPE CODE TESTS RESULT OUT OF RANGE REFERENCE UNITS LAB RUBGQL Negative Abnormal Rubella IgG Positive Alert Ab, Qual Result Comment: Sample is considered positive for IgG antibodies to rubella virus. A positive result indicates previous exposure to Rubella virus or vaccination. LAB RUBQNT Index Value Rubella IgG Ab 1.58 Result Comment: Index values are interpreted as follows: Negative specimens <0.90 Equivocol specimens 0.90 to 0.99 Positive specimens >0.99 The magnitude of the measured result is not indicative of the amount of antibody present. Performed By: #### CBC, RUBIGG, HFP, HBSAG, HIV12C, SYPHGX #### [facility] [address] [place], [place] [address] HEPATIC FUNCTN PANEL Collected: 04/23/2018 Status: F Source: [place] 10:30 AM [facility] REPOSITORY TYPE CODE TESTS RESULT OUT OF REFERENCE UNITS RANGE LAB ALB 3.9-4.9 g/dL Albumin 3.9 LAB TBIL 0.2-1.3 mg/dL Bilirubin, Total 0.4 LAB CBIL <0.2 mg/dL Bilirubin,Conjuga <0.2 timothy LAB ALKP 32-117 U/L Alkaline Phosphatase 44 LAB AST 13-35 U/L Low AST 11 LAB ALT 7-38 U/L Low ALT <5 LAB TP 6.3-8.0 g/dL Protein, Total 6.8 Performed By: #### CBC, RUBIGG, HFP, HBSAG, HIV12C, SYPHGX #### [place] [address] HEPATITIS B SURF. AG Collected: 04/23/2018 Status: F Source: [place] 10:30 AM [facility] REPOSITORY TYPE CODE TESTS RESULT OUT OF REFERENCE UNITS RANGE LAB HBSAG Negative Hepatitis B Negative Surf. Ag Performed By: #### CBC, RUBIGG, HFP, HBSAG, HIV12C, SYPHGX #### [place] [address] HIV 12 COMBO (AG/AB) Collected: 04/23/2018 Status: F Source: [place] 10:30 AM [facility] REPOSITORY TYPE CODE TESTS RESULT OUT OF REFERENCE UNITS RANGE LAB HVAGAB Non Reactive HIV Non Reactive 12 Ag/Ab Result Comment: (NOTE) HIV Information: Deuel Rev. Code 3701.243(E): This information has been disclosed to you from confidential records protected from disclosure by state law. You shall make no further disclosure of this information without the specific, written, and informed release of the individual to whom it pertains, or as otherwise permitted by state law. A general authorization for the release of medical or other information is not sufficient for the purpose of the release of HIV test results or diagnoses. Performed By: #### CBC, RUBIGG, HFP, HBSAG, HIV12C, SYPHGX #### [place] [phone] SYPHILIS IGG WITH Collected: 04/23/2018 Status: F Source: [facility] 10:30 AM [facility] REPOSITORY TYPE CODE TESTS RESULT OUT OF REFERENCE UNITS RANGE LAB SYPHQL Nonreactive Syphilis IgG, Nonreactive Qual Result Comment: In conjunction with this result, the immune status of the patient should be evaluated based on their clinical status, related risk factors, and other diagnostic test results. LAB SYPHLG AI Syphilis IgG <0.2 Result Comment: Antibody index is interpreted as follows: Non reactive SPECIMENS <=0.8 Weak reactive SPECIMENS 0.9 to 5.9 Reactive SPECIMENS >=6.0 Performed By: #### CBC, RUBIGG, HFP, HBSAG, HIV12C, SYPHGX #### [facility] [address] [place], [place] [address] TYPE AND SCR,PRENATL Collected: 04/23/2018 Status: F Source: [place] 10:30 AM [facility] REPOSITORY TYPE CODE TESTS RESULT OUT OF REFERENCE UNITS RANGE LAB %ABR O ABO/RH(D) NEGATIVE LAB % Antibody NEG Screen Performed By: #### TSPN #### [place] [id number] PERIOD / VOLUME Collected: 04/10/2018 Status: F Source: [place] 9:00 AM [facility] REPOSITORY TYPE CODE TESTS RESULT OUT OF REFERENCE UNITS RANGE LAB PER hr Period 24 LAB VOL mL Volume 611 LAB COLSDT Collection Start 724 Date LAB COLSTM Collection Start 00 Time LAB COLEDT Collection End 725 Date LAB COLETM Collection End 0900 Time Performed By: #### PV, UTP24 #### [facility] [employer] [address] [place] [id number] PROTEIN URINE 24 HR Collected: 04/10/2018 Status: F Source: [place] 9:00 AM [facility] REPOSITORY TYPE CODE TESTS RESULT OUT OF REFERENCE UNITS RANGE LAB TP24GM <0.16 gm/24 Hr Protein Urine 0.07 Performed By: #### PV, UTP24 #### [facility] [employer] [address] [place] [phone] PROGRESS Observed: 04/01/2018 Status: COMPLETED Source: [place] 10:01 AM [facility] REPOSITORY HNO ID: [id number] Author: Alma Estrella Service: (none) Author Type: Physician Type: Progress Notes Filed: 04/01/2018 10:46 AM Note Text: INITIAL OB ASSESSMENT OB Provider: Alma Estrella MD HPI: Seema Longo is a 37 year old female here to establish Obstetrical Care. Patient's last menstrual period was 01/23/2018. from OB Dating Form. Cycle length: 30 days Complaints: nausea and vomiting (occasional) was planned. Obstetric History T3 L3 SAB0 TAB0 Ectopic0 Multiple0 Live Births3 Prior : never History of 4th degree laceration: No Patient's Risk Screening for delivery: History of abnormal pap: Yes Prior treatment for cervical dysplasia: LEEP. 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 Patient BMI over 30? 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 Pap smear (cervix) - Colitis - Hemorrhoids - Infertility, female - Other and unspecified ovarian cyst Ovarian cyst PAST SURGICAL HISTORY Procedure Laterality Date - CERVIX UTERI CONIZA LP ELCTRO EXCI 2003 LEEP-Cervix, [place] - COLPOSCOPY (VAGINOSCOPY) Colposcopy Current Outpatient Prescriptions on File Prior to Visit: omeprazole (PRILOSEC) 10 mg capsule Take 1 capsule by mouth once daily. albuterol HFA (VENTOLIN HFA) 90 mcg/actuation inhaler Inhale 2 Puffs as instructed every 4 hours as needed. (Patient not taking: Reported on 02/07/2018 ) Vkfvaifo-Qc-Sow-Fe-FA ( VITAMIN) tab Take 1 tablet by mouth. DOCOSAHEXANOIC ACID (DHA ORAL) Take by mouth. promethazine (PHENERGAN) 12.5 mg tablet Take 1 tablet by mouth every 6 hours as needed. (Patient not taking: Reported on 02/07/2018 ) predniSONE (DELTASONE) 10 mg tablet Take 4 tabs daily x5 days, then 2 tabs daily for 5 days, then 1 tab daily for 5 days. (Patient not taking: Reported on 02/07/2018 ) triamcinolone acetonide (KENALOG) 0.1 % cream Apply 1 application to affected area three times daily. Apply sparingly to area for rash/itching. (Patient not taking: Reported on 02/07/2018 ) Znoovcpv-Mr-Imd-Fe-FA ( VITAMIN) Tab Take 1 tablet by mouth. No current facility-administered medications on file prior to visit. Review of Systems: GENERAL: Negative for: Fever or Chills HEENT: Negative for: Headache, Impaired Vision, Ringing in Ears, Nosebleeds NECK: Negative for: Swelling, Pain, Stiffness RESPIRATORY: Negative for: Cough, Shortness of breath, Wheezing GASTROINTESTINAL: Positive for: Nausea and Vomiting MUSCULOSKELETAL: Negative for: Muscle or joint pain, stiffness, Joint swelling NEUROLOGIC/PSYCHIATRIC: Negative for: Weakness, Paralysis, Numbness, Tingling, Tremor, Anxiety, Depression, Memory loss SKIN: ++ poision charlie GENITOURINARY: Negative for: vaginal itching, vaginal discharge, hematuria or dysuria PHYSICAL EXAM: LMP 01/23/2018 GENERAL: pleasant female in no apparent distress DERMATOLOGY: Normal, without lesions, non-icteric and non-hirsute NECK: full range of motion BREAST: soft, non-tender, symmetric, no dominant mass, normal nipple-areolar complex, no lymphadenopathy and no nipple discharge ABDOMEN: soft, non-tender and no masses NEURO: alert and oriented x3,exam grossly non-focal PELVIS: External genitalia normal without lesions. Perineal body intact. No vaginal or cervical lesions. Cervix closed. Uterus 9 week size. No adnexal masses or tenderness. Clinical Pelvimetry: Pelvimetry clinically assessed as adequate Limited OB ultrasound exam: single intrauterine and positive cardiac activity ASSESSMENT: 37 year old at 9.5 wks gestational age PLAN: 1) Patient oriented to practice. Discussed nutrition, folic acid supplementation, dietary guidelines, exercise, smoking, alcohol, caffeine, and drug use. Discussed routine OB labs including STD/HIV. Discussed aneuploidy screening options including serum screening and nuchal translucency. 2) h/o Gest HTN first - BABY ASA at 11 weeks 3) Maternity 21 reviewed and requested with NT Follow up in 4 weeks or sooner prn. Alma Conteh MD TOXICOLOGY SCREEN,UR Collected: 04/01/2018 Status: F Source: [place] 10:00 AM [facility] REPOSITORY TYPE CODE TESTS RESULT OUT OF REFERENCE UNITS RANGE LAB UPCP2 Negative Negative Phencyclidin e, Urine Result Comment: Cutoff threshold at 25 ng/mL. LAB UBENZ2 Negative Benzodiazepines, Ur Negative Result Comment: Cutoff threshold at 200 ng/mL. LAB UCOC2 Negative Cocaine, Negative Urine Result Comment: Cutoff threshold at 300 ng/mL. LAB UAMPH2 Negative Amphetamines, Urine Negative Result Comment: Cutoff threshold at 1000 ng/mL. LAB UTHC2 Negative Cannabinoids, Urine Negative Result Comment: Cutoff threshold at 50 ng/mL. LAB UOPI2 Negative Opiates, Negative Urine Result Comment: Cutoff threshold at 300 ng/mL. LAB UBARB2 Negative Barbiturates, Urine Negative Result Comment: Cutoff threshold at 200 ng/mL. LAB UETOH <11 mg/dL <11 Ethanol, Urine LAB UOXYC Negative Oxycodone, Negative Urine Result Comment: Cutoff threshold at 100 ng/mL. Comment: Immunoassay screen only. Cross reactivity with other substances can occur with immunoassay screening. Detection of any drug(s) in this urine toxicology panel is presumptive only. These tests are for med ical purposes only and should not be used for compliance monitoring, legal, or forensic use. Samples should be within normal physiological conditions (e.g. pH). This assay does not include adulteration/specimen validity testing. In clinical settings, confirmatory testing is at the practitioner's discretion [1]. If clinically indicated, confirmation by high specificity, quantitative methodology, which includes adulteration/spec imen validity testing, may be requested on the same specimen through Client Services ([phone]) if contacted within 48 hours of initial testing. [1]Substance Abuse and Mental Health Services Administration (2012). Clinical Drug Testing in Primary Care Technical Assistance Publication Series 32. Department of Health and Human Services, [place], p.10. These tests were developed and their performance characteristics determined by [facility]'s [facility] ( [facility]). They have not been cleared or a pproved by the FDA. [facility] is regulated under CLIA as qualified to perform high complexity testing. These tests are used for clinical purposes. They should not be regarded as investigational or for research. Performed By: #### UTOX2 #### [facility] [address] [place], [place] [address] GC/CHLAMYDIA AMPLIF Collected: 04/01/2018 Status: F Source: [place] 10:00 AM [facility] REPOSITORY TYPE CODE TESTS RESULT OUT OF REFERENCE UNITS RANGE LAB GCCTSR GC/Chlam Amp [facility] Source LAB GCAMPL GC Negative Amplification for Neisseria gonorrhoeae by amplification. LAB CLAMPL Chlamydia Negative Amplif for Chlamydia trachomatis by amplification. Performed By: #### GCCT #### [facility] [address] [place], [place] [address] Observed: 04/01/2018 Status: F Source: [place] URINE CULTURE 10:00 AM [facility] REPOSITORY Sp. Request/Comment: - Best Practice Alert: To ensure optimal transport conditions and accurate culture results transfer urine specimens to nielson top C and S preservative tube. Culture Result - 10,000 - <50,000 CFU/ml Normal urogenital rafy Performed By: #### URCUL #### [facility] [address] [place], [place] [address] XR FOOT 3V AP/LAT/OBL Observed: 02/07/2018 Status: F Source: [facility] 12:44 PM [facility] REPOSITORY * * *Final Report* * * DATE OF EXAM: Feb 07 2018 12:44PM WOX [id number] - XR FOOT 3V AP/LAT/OBL LT / PROCEDURE REASON: Unspecified injury of left foot, initial encounter * * * * Physician Interpretation * * * * Indication: Left fifth toe pain after injury Comparison: None 3 views of the left foot are obtained. There is normal architecture and mineralization of bone. There is a fracture of the distal aspect of the proximal phalanx of the left fifth toe. Joint spaces are maintained. Impression: Fracture of the distal aspect of the proximal phalanx of the left fifth toe Silver Solution Mixer: EVA Transcribe Date/Time: Feb 07 2018 12:44P Dictated by : BROOKE BLAS MD This examination was interpreted and the report reviewed and electronically signed by: BROOKE BLAS MD on Feb 07 2018 12:46PM EST [id number] Observed: 02/07/2018 Status: COMPLETED Source: [place] 12:34 PM [facility] REPOSITORY HNO ID: [id number] Author: Milana Vyas (Rt) Evonne Washington Service: (none) Author Type: Supervisor Cd Area Type: Progress Notes Filed: 02/07/2018 12:44 PM Note Text: Radiology Service Progress Note PATIENT NAME: Seema Longo DATE OF SERVICE: February 07, 2018 TIME: 12:34 PM PATIENT IDENTITY VERIFICATION COMPLETED USING TWO (2) METHODS: Patient confirmed name verbally and Date of . PATIENT GENDER DATA: Female. status: : No status: NO. PATIENT RELEVANT IMPLANT DATA REVIEWED: Not Applicable RADIOLOGY DEPARTMENT: General X-ray: Exam(s) Completed: Lower Extremity X-Ray(s): Foot, Left: PERIPHERAL IV DATA: Not applicable SIGNED BY: RT Concepcion February 07, 2018 12:34 PM PROGRESS Observed: 02/07/2018 Status: COMPLETED Source: [place] 12:30 PM [facility] REPOSITORY HNO ID: [id number] Author: Eulalia Vieyra) Reema Service: (none) Author Type: Nurse Practitioner Type: Progress Notes Filed: 02/07/2018 1:25 PM Note Text: Subjective The history is provided by the patient. No seismic interpreter was used. HPI Seema Longo is a 37 year old female who presents today for CC of left pinky toe pain This started last evening. She is also having bruising and swelling. Symptoms are worsened by movement. She has tried ice and ibuprofen. Risk factors she was running into the house and hit pinky toe on her son's scooter, felt a shooting pain, with swelling. PMH not significant. BP 122/76 Pulse 76 Temp 36.7 ?C (98 ?F) (Tympanic) Resp 16 Wt 49 kg (108 lb) ? No BMI 19.13 kg/m? ALLERGIES Allergen Reactions - Poison Charlie Rash ACTIVE PROBLEM LIST Advanced Maternal Age in Multigravida Patient Requested Diagnostic Testing History of Prior With [place] History of Loop Electrosurgical Excision Procedure (Leep) of Cervix Affecting History of Colitis Family History of Down Syndrome Nausea and Vomiting in Rh Negative Status During Family History Problem Relation Age of Onset - Lipids Father - Diabetes Maternal Grandmother - Cancer Maternal Grandmother skin cancer - Prostate Cancer Maternal Grandfather - Prostate Cancer Paternal Grandfather Social History Marital status: Spouse name: Kadeem Years of education: 14 Number of children: 2 Occupational 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 Musculoskeletal: Positive for joint pain (pinky toe, 5th metatarsal joint). Negative for myalgias. Skin: Negative for rash. Neurological: Negative for tingling and headaches. Objective Physical Exam Constitutional: She is oriented to person, place, and time and well-developed, well-nourished, and in no distress. No distress. HENT: Head: Normocephalic and atraumatic. Eyes: Conjunctivae and EOM are normal. Pupils are equal, round, and reactive to light. Neck: Normal range of motion. Neck supple. Pulmonary/Chest: Effort normal. Musculoskeletal: Left foot: There is decreased range of motion, tenderness, bony tenderness and swelling (ecchymosis). There is normal capillary refill, no crepitus, no deformity and no laceration. Feet: Neurological: She is alert and oriented to person, place, and time. Skin: Skin is warm and dry. Psychiatric: Affect normal. Nursing note and vitals reviewed. ASSESSMENT/PLAN: 1. Foot injury, left, initial encounter - ICD9: 959.7, ICD10: S99.922A (primary diagnosis) comfirmed fracture with xray - XR FOOT GENERAL 3V AP/LAT/OBL LT - interpreted by Irene Blas MD 3 views of the left foot are obtained. ?There is normal architecture and mineralization of bone. ?There is a fracture of the distal aspect of the proximal phalanx of the left fifth toe. ?Joint spaces are maintained. Impression: Fracture of the distal aspect of the proximal phalanx of the left fifth Toe 2. Unspecified fracture of left toe(s), initial encounter for closed fracture - ICD9: 826.0, ICD10: S92.912A Rest, ice, elevation, keep tiff taped and in post op shoe until seen by podiatry, pain medications as discussed Tylenol first, and after week, motrin/Advil/ibuprofen as needed for pain See your doctor if not improving Follow up with podiatry 10 days to 2 weeks. Diagnosis and treatment plan were discussed and questions were answered to the patient's satisfaction. Pt acknowledged understanding of concepts and follow up plan. Specific signs and symptoms that would indicate the need for higher level of care were discussed in detail warranting prompt ER evaluation. Eulalia Benavidez APRN.CNP CNOV Observed: 02/07/2018 Status: COMPLETED Source: [place] 12:15 PM [facility] REPOSITORY Office Visit (WSTR) SEEMA LONGO ([id number]) 1980 F Date Time Provider Department 02/07/18 12:15 PM EULALIA BENAVIDEZ (MURAL ARTIST) [facility] During your visit today, we recorded the following information about you: Temperature Pulse Respiration Blood pressure 98 degrees 76/minute 16/minute 122/76 Weight 49 kg Eulalia Benavidez APRN.CNP 02/07/2018 1:25 PM Addendum Subjective The history is provided by the patient. No seismic interpreter was used. HPI Seema Longo is a 37 year old female who presents today for CC of left pinky toe pain This started last evening. She is also having bruising and swelling. Symptoms are worsened by movement. She has tried ice and ibuprofen. Risk factors she was running into the house and hit pinky toe on her son's scooter, felt a shooting pain, with swelling. PMH not significant. BP 122/76 Pulse 76 Temp 36.7 ?C (98 ?F) (Tympanic) Resp 16 Wt 49 kg (108 lb) ? No BMI 19.13 kg/m? ALLERGIES Allergen Reactions - Poison Charlie Rash ACTIVE PROBLEM LIST Advanced Maternal Age in Multigravida Patient Requested Diagnostic Testing History of Prior With I[place] [place] History of Loop Electrosurgical Excision Procedure (Leep) of Cervix Affecting History of Colitis Family History of Down Syndrome Nausea and Vomiting in Rh Negative Status During Family History Problem Relation Age of Onset - Lipids Father - Diabetes Maternal Grandmother - Cancer Maternal Grandmother skin cancer - Prostate Cancer Maternal Grandfather - Prostate Cancer Paternal Grandfather Social History Marital status: Spouse name: Kadeem Years of education: 14 Number of children: 2 Occupational 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 Musculoskeletal: Positive for joint pain (pinky toe, 5th metatarsal joint). Negative for myalgias. Skin: Negative for rash. Neurological: Negative for tingling and headaches. Objective Physical Exam Constitutional: She is oriented to person, place, and time and well-developed, well-nourished, and in no distress. No distress. HENT: Head: Normocephalic and atraumatic. Eyes: Conjunctivae and EOM are normal. Pupils are equal, round, and reactive to light. Neck: Normal range of motion. Neck supple. Pulmonary/Chest: Effort normal. Musculoskeletal: Left foot: There is decreased range of motion, tenderness, bony tenderness and swelling (ecchymosis). There is normal capillary refill, no crepitus, no deformity and no laceration. Feet: Neurological: She is alert and oriented to person, place, and time. Skin: Skin is warm and dry. Psychiatric: Affect normal. Nursing note and vitals reviewed. ASSESSMENT/PLAN: 1. Foot injury, left, initial encounter - ICD9: 959.7, ICD10: S99.922A (primary diagnosis) comfirmed fracture with xray - XR FOOT GENERAL 3V AP/LAT/OBL LT - interpreted by Irene Blas MD 3 views of the left foot are obtained. ?There is normal architecture and mineralization of bone. ?There is a fracture of the distal aspect of the proximal phalanx of the left fifth toe. ?Joint spaces are maintained. Impression: Fracture of the distal aspect of the proximal phalanx of the left fifth Toe 2. Unspecified fracture of left toe(s), initial encounter for closed fracture - ICD9: 826.0, ICD10: S92.912A Rest, ice, elevation, keep tiff taped and in post op shoe until seen by podiatry, pain medications as discussed Tylenol first, and after week, motrin/Advil/ibuprofen as needed for pain See your doctor if not improving Follow up with podiatry 10 days to 2 weeks. Diagnosis and treatment plan were discussed and questions were answered to the patient's satisfaction. Pt acknowledged understanding of concepts and follow up plan. Specific signs and symptoms that would indicate the need for higher level of care were discussed in detail warranting prompt ER evaluation. VICTORIA Doss APRN.CNP 02/07/2018 1:04 PM Signed ASSESSMENT/PLAN: 1. Foot injury, left, initial encounter - ICD9: 959.7, ICD10: S99.922A (primary diagnosis) comfirmed fracture with xray - XR FOOT GENERAL 3V AP/LAT/OBL LT 2. Unspecified fracture of left toe(s), initial encounter for closed fracture - ICD9: 826.0, ICD10: S92.912A Rest, ice, elevation, keep tiff taped and in post op shoe until seen by podiatry, pain medications as discussed Tylenol first, and after week, motrin/Advil/ibuprofen as needed for pain See your doctor if not improving Follow up with podiatry 10 days to 2 weeks. Referring Provider: SELF [200] Allergies As of Date: 02/07/2018 Noted Allergy Reaction POISON CHARLIE 02/08/2015 2 - Rash Date Reviewed: 02/07/2018 Reviewed by: Savannah Carcamo Ma - Fully Assessed Reason for Visit: Toe Injury [1995] Cmt: left pinky toe stubbed x 1 day Primary Visit Diagnosis:Foot injury, left, initial encounter [S99.922A] Other Visit Diagnosis:Unspecified fracture of left toe(s), initial encounter for closed fracture [S92.912A] Order(s):XR FOOT GENERAL 3V AP/LAT/OBL LT [[id number]] Order #: [id number] #:[id number] Prescriptions as of 02/07/2018 Sig: OMEPRAZOLE 10 MG CAPSULE,MERCEDES* Take 1 capsule by mouth once * ALBUTEROL SULFATE HFA 90 MCG/* Inhale 2 Puffs as instructed * Patient not taking: Reported on 02/07/2018 VITAMIN,CALCIUM,MINE* Take 1 tablet by mouth. DHA ORAL Take by mouth. PROMETHAZINE 12.5 MG TABLET Take 1 tablet by mouth every * Patient not taking: Reported on 02/07/2018 PREDNISONE 10 MG TABLET Take 4 tabs daily x5 days, th* Patient not taking: Reported on 02/07/2018 TRIAMCINOLONE ACETONIDE 0.1 %* Apply 1 application to affect* Patient not taking: Reported on 02/07/2018 * VITAMIN,CALCIUM,MINE* Take 1 tablet by mouth. Problem List As Of Date 02/07/2018 Noted Resolved Contraception [Z30.9] INVALID FOR*05/02/2012 Hemorrhagic cyst of ovary [N83.209] INVALID FOR*02/06/2013 Abdominal pain, bilateral lower quadrant [R10.3*INVALID FOR*02/06/2013 with uncertain dates [Z34.90] INVALID FOR*02/06/2013 More... Hemorrhoids [K64.9] INVALID FOR*04/27/2013 More... Family history of Down syndrome [Z82.79] INVALID FOR*04/27/2013 More... History of LEEP (loop electrosurgical excision *INVALID FOR*04/27/2013 More... Immunization due [Z23] INVALID FOR*02/06/2013 More... Threatened [O20.0] INVALID FOR*02/06/2013 More... UTI (urinary tract infection) during *INVALID FOR*04/27/2013 More... Gastroesophageal reflux in pregancy [O99.619, K*INVALID FOR*04/27/2013 SUPRF HIGH RISK NEC [V23.89] [O09.899]INVALID FOR*04/27/2013 More... Advanced maternal age (AMA) in [IMO00*INVALID FOR*09/01/2014 More... Short interval between pregnancies complicating*INVALID FOR*09/01/2014 More... Breast feeding status of mother [Z39.1] INVALID FOR*09/01/2014 More... Prior complicated by IUGR, antepartum*INVALID FOR*09/01/2014 More... History of LEEP (loop electrosurgical excision *INVALID FOR*05/03/2016 More... History of hemorrhoids [Z87.19] INVALID FOR*09/01/2014 More... Family history of Down syndrome [Z82.79] INVALID FOR*09/01/2014 More... Need for rhogam due to Rh negative mother [Z29.*INVALID FOR*09/01/2014 GBS (group B streptococcus) UTI complicating pr*INVALID FOR*09/01/2014 More... Allergy to poison charlie [Z91.09] INVALID FOR*09/01/2014 More... labor [O60.00] INVALID FOR*09/01/2014 More... Secondary oligomenorrhea [N91.4] INVALID FOR*03/09/2016 Advanced maternal age in multigravida [O09.529] INVALID FOR* More... Patient requested diagnostic testing [Z01.89] INVALID FOR* More... History of prior with IUGR [Z*INVALID FOR* More... History of loop electrosurgical excision proced*INVALID FOR* More... History of colitis [Z87.19] INVALID FOR* More... Family history of Down syndrome [Z82.79] INVALID FOR* More... Nausea and vomiting in [O21.9] INVALID FOR* More... Rh negative status during [O09.899, Z*INVALID FOR* Other instructions from your clinician: ASSESSMENT/PLAN: 1. Foot injury, left, initial encounter - ICD9: 959.7, ICD10: S99.922A (primary diagnosis) comfirmed fracture with xray - XR FOOT GENERAL 3V AP/LAT/OBL LT 2. Unspecified fracture of left toe(s), initial encounter for closed fracture - ICD9: 826.0, ICD10: S92.912A Rest, ice, elevation, keep tiff taped and in post op shoe until seen by podiatry, pain medications as discussed Tylenol first, and after week, motrin/Advil/ibuprofen as needed for pain See your doctor if not improving Follow up with podiatry 10 days to 2 weeks. Encounter Status:Closed by EULALIA BENAVIDEZ CNP on 02/07/18 ALLERGIES ALLERGIES DATE TYPE / CODE NAME / CODE REACTION SEVERITY SOURCE 10/11/2018 Drug No Known Unknown [facility]/4160 Allergies/F001 [facility] [address](SNOMED 189410(RXNORM) Repository CT) 02/08/2015 Environ/4201 POISON CHARLIE RASH [facility] [address](SNOMED [place] [address]) Repository ENCOUNTERS ENCOUNTERS ADMIT/DISCHARGE ACCOUNT ADMITTING ENCOUNTER LOCATION SOURCE NUMBER CLASS 10/11/2018 [id number] Norma Hatch Inpatient [facility] Encounter [facility] ing:WPRoom: Repository [id number]: 1 10/07/2018/10/08/19 [id number] Ambulatory [address] [place] Repository 10/06/2018/10/07/19 [id number] Ambulatory [place] [facility] [place] Repository 10/02/2018/10/02/19 [id number] Ambulatory [address] ing:WPOUTRoom Repository : [id number] 10/02/2018/10/03/19 [id number] Ambulatory [place] 19 [facility] [place] Repository 09/30/2018/10/01/19 [id number] Ambulatory [place] 19 [facility] [place] Repository 09/30/2018/10/01/19 [id number] Ambulatory [place] 19 [facility] [place] Repository 09/29/2018/09/30/19 [id number] Ambulatory [place] 19 [facility] [place] Repository 09/25/2018/09/26/19 [id number] Ambulatory [place] [facility] [place] Repository 09/23/2018/09/23/19 [id number] Ambulatory [place] [facility] [place] Repository 09/21/2018/09/23/19 [id number] Ambulatory [place] [facility] [place] Repository 09/17/2018/09/17/19 [id number] Ambulatory [place] [facility] [place] Repository 09/15/2018/09/15/20 [id number] Ambulatory [place] [facility] [place] Repository 09/15/2018/09/17/19 [id number] Ambulatory [place] [facility] [place] Repository 09/15/2018/09/17/19 [id number] Ambulatory [place] [facility] [place] Repository 08/25/2018/08/26/20 [id number] Ambulatory [place] [facility] [place] Repository 08/12/2018/08/12/20 [id number] Ambulatory [place] [facility] [place] Repository 08/12/2018/08/13/20 [id number] Ambulatory [place] [facility] [place] Repository 07/28/2018/07/29/20 [id number] Ambulatory [place] [facility] [place] Repository 06/30/2018/08/06/20 [id number] Ambulatory [place] [facility] [place] Repository 06/13/2018/06/13/20 [id number] Ambulatory [place] [facility] [place] Repository 06/04/2018/07/18/20 [id number] Ambulatory [place] [facility] [place] Repository 06/04/2018/06/05/20 [id number] Ambulatory [place] [facility] [place] Repository 04/23/2018/04/23/20 [id number] Ambulatory [place] [facility] [place] Repository 04/23/2018/04/24/20 [id number] Ambulatory [place] [facility] [place] Repository 04/23/2018/04/24/20 [id number] Ambulatory [place] [facility] [place] Repository 04/10/2018/04/10/20 [id number] Ambulatory [place] [facility] [place] Repository 04/01/2018/04/02/20 [id number] Ambulatory [place] [facility] [place] Repository 02/07/2018/02/08/20 [id number] Ambulatory [place] [facility] [place] Repository 02/07/2018/02/12/20 [id number] Amb[facility] [place] [facility] Main [place] Repository PAYERS PAYERS ENCOUNTER GUARANTOR PAYER SUBSCRIBER SOURCE 10/11/2018 SEEMA Raymond Primary SEEMA [id number] Insurance:[facility]ANY [facility] [id number] [facility] Hospital [address]Jhi: PLANPolicy Number: Repository [id number] (HP) Date:[id number] [address]HQ: 10/11/2018 Secondary NOT GIVENUNK Max Insurance:SELF PAY [facility] Number: Effective Repository Date:2018-10-11 10/02/2018 ESEMA Raymond Primary SEEMA B Mary Kate [id number] Insurance:JOVANY ASHRAF: [facility] [id number] Vista Hospital [id number]: PLANPolicy Number: Repository [id number] (HP) Date:[id number] [place] [id number]: 10/02/2018 Secondary NOT GIVENUNK Mary Kate Insurance:SELF [facility]Y [facility]: Effective Repository Date:2018-10-02
== END 2018-10-02 22:40 | disposition home or self-care (01) ==
LOC: WPOUT 20:27 → WP 20:28
PROVIDERS: Referring Provider Obstetrics & Gynecology; Visit Provider Obstetrics & Gynecology
DX: O47.9 False labor, unspecified (principal); Z3A.00 Weeks of gestation of pregnancy not specified
CPT/HCPCS: 59025; 59050; 81001; 87086; 87088; 99218; G0378

== ENCOUNTER 2018-10-11 19:40 | Inpatient (IN) | payer MEDICAID, SELFPAY ==
[2018-10-11 17:08] VITALS: BMI 22.6
[2018-10-11 17:40] LABS: ROM Internal Control Test YES-OK TO RESULT pt. (Internal QC); ROM Patient Test Negative (Negative)
[2018-10-11] MEDS: Lactated Ringers 1,000 ML 999 ML IV (17:45)
[2018-10-11] MEDS: Acetaminophen 500 MG Tablet 1000 MG PO (17:54)
[2018-10-11] MEDS: 0.9% Saline Lock 10 ML Syringe IV ×4 (18:47→22:50)
[2018-10-11] MEDS: Ondansetron 4 MG/2 ML Vial IV (19:24)
--- NOTE | 2018-10-11 20:03 | PCM.HP.OB ---
- Problem List (1) AMA (advanced maternal age) multigravida 35+ Status: Acute (2) History of cervical LEEP biopsy affecting care of mother, antepartum Status: Acute (3) History of gestational hypertension Status: Acute (4) Anemia affecting Status: Acute History Date of Admission: 06/22/14 Final SELVIN: 10/30/18 Final SELVIN Source: LMP Gestational age: 37 Weeks and 2 Days History of this : This is a 38 year-old, G [4], P [3003], at 37 weeks 2 days gestational age. Presented to L&D with contractions that started around 2pm. Upon arrival to L&D 4cm and progressed to 6cm. Decision for admission. Allergies No Known Allergies Allergy (Verified 10/11/18 17:17) Home Medications: Home Medications Prenatabs FA 2 gum PO DAILY 06/21/14 Famotidine [Pepcid] 40 mg PO BID 10/02/18 Ferrous Sulfate [Slow Fe] 142 mg PO DAILY 10/02/18 Smoking Status: Former smoker Alcohol: None Number of Fetus(es): 1 Heart Tracin, moderate variability, accels, no decels, Category 1 TOCO:q 2-3 minutes, strong, 60-70 seconds History Past Pregnancies: Past Pregnancies Delivery Date Name GA/Weeks Outcome Route Weight Infant Gender Labor Length Anesthesia Delivery Location Provider FOB Labs: RPR negative GC/CT negative Rubella immune O negative HIV negative HBsAG negative GBS negative Expected Delivery Method: Spontaneous Vaginal Review of Systems Constitutional: Reports: Chills. Denies: Fever, Weight Change HEENT: Denies: Head Aches, Sinus Congestion, Sinus Drainage Cardiovascular: Denies: Chest Pain, Palpitations Respiratory: Denies: Cough, Shortness of breath at rest, Sputum production Gastrointestinal: Reports: Nausea. Denies: Abdominal Pain, Vomiting Genitourinary: Denies: Dysuria Psychiatric: Denies: Anxiety, Depression, Homicidal Ideations, Suicidal Ideations Physical Exam General: Alert, Oriented x3, No apparent distress HEENT: Atraumatic, Normocephalic. Negative for: Thyromegaly, Lymphadenopathy Cardiovascular: Regular rate, Regular Rhythm, No murmurs Lungs: Clear to auscultation, Normal air movement, No rhonchi, No wheeze Abdomen: Bowel Sounds Present, Gravid Extremities:: No edema Neurological: Deep Tendon Reflexes 2+/4 and Symmetrical. Negative for: Clonus PLATE PAINTER: Normal external genitalia Estimated gestational size: Appropriate for gestational size Presentation: Cephalic Cervix Dilation (cm): 6 Station: -1 Effacement (%): 80 Assessment/Plan All Active Problems AMA (advanced maternal age) multigravida 35+ (Acute) History of cervical LEEP biopsy affecting care of mother, antepartum (Acute) History of gestational hypertension (Acute) Anemia affecting (Acute) This is a 38 year-old, G [4], P [3003], at 37weeks 2 days gestational age. A: Active Labor Category 1 FHT P: 1) Admit to L&D. Routine labs. 2) Continuous monitoring 3) Reviewed plan, unsure if she wants epidural or unmedicated . Reviewed pain management options. Patient would like to have unmedicated at this time. 4) notified of patient in labor.
[2018-10-11 20:17] LABS: Hematocrit 34.8 % (37-47); Hemoglobin 10.8 g/dl (12.0-15.0); Mean Corpuscular Hgb 25.1 pg (27.0-32.0); Mean Corpuscular Volume 80.9 fL (81-99); Mean Platelet Vol. 10.8 fl (6.2-12.0); Platelet Count 146 K/mm3 (150-450); RBC Distribution Width CV 20.7 % (11.6-14.6); RBC Distribution Width SD 58.2 fl (35.1-43.9); White Blood Count 6.4 K/mm3 (4.4-11.0)
[2018-10-11 20:20] LABS: Scan Indicated on CBC? Y/N YES- FLAGS NOTED
[2018-10-11] MEDS: Lactated Ringers 1,000 ML 50 ML IV (20:48)
[2018-10-11] MEDS: Oxytocin 30 units/NS 500 ml 30 UNITS/500 ML IV.SOLN 334 UNITS IV (21:00)
--- NOTE | 2018-10-11 21:14 | PCM.OB.VAG ---
- Problem List (1) AMA (advanced maternal age) multigravida 35+ Status: Acute (2) History of cervical LEEP biopsy affecting care of mother, antepartum Status: Acute (3) History of gestational hypertension Status: Acute (4) Anemia affecting Status: Acute Vaginal Delivery Maternal Presentation: Active Labor Amniotic Membrane Rupture Type: Artificial Amniotic Fluid Description: Clear Final SELVIN: 10/30/18 Gestational age: 37 Weeks and 2 Days Date of Procedure: 10/11/18 Pre-Operative Diagnosis: Active Labor Post-Operative Diagnosis: Surgery/ Procedure Performed: Spontaneous Vaginal Delivery Type of Anesthesia: None Description of Procedure: Progressed to complete with urge to push, unmedicated. of viable female over 1st degree perineal laceration. APGARS 9,9 with weight pending. Infant head delivered with tight nuchal cord around neck, unable to be reduced. Maternal pushing efforts and infant delivered through nuchal cord without complications. Infant placed on maternal abdomen, spontaneous cry, mouth and nares suctioned for secretions. Pitocin started for active 3rd stage management. Placenta delivered with maternal effort, intact, 2 vessel cord. Perineum inspected and revealed 1st degree perineal laceration. Repaired with single figure eight suture without analgesia, patient tolerated well. Fundus firm, hemostasis achieved, EBL 100ml. Mom and baby stable, planning to breastfeed, family bonding well. notified of delivery. Presentation: Vertex, PANDA Placental Delivery Description: Spontaneous Placenta Disposition: [facility] Cord Vessel Description: 2 Vessels Nuchal Cord Compression: Without compression Cord Entanglement: Around neck x 1, tight Estimated Blood Loss: 100ml A gender: Female (1 minute): 9 (5 minute): 9 Episiotomy Description: None Laceration: Perineal Extension/lac, 1st degree Medications given after delivery: IV Pitocin
[2018-10-11] MEDS: Oxytocin 30 units/NS 500 ml 30 UNITS/500 ML IV.SOLN 167 UNITS IV (21:30)
[2018-10-11] MEDS: Ibuprofen 600 MG Tablet PO (21:43)
[2018-10-12] VITALS: BP 106/69; PULSE 63; RESP 14; TEMP 37.2
[2018-10-12 03:16] VITALS: BP 97/52; PULSE 64; RESP 14; TEMP 36.3
[2018-10-12] MEDS: Ibuprofen 600 MG Tablet PO ×3 (07:43→20:05)
[2018-10-12 08:00] VITALS: BP 94/65; PULSE 72; RESP 18; TEMP 36.6
[2018-10-12 14:00] VITALS: BP 103/64; PULSE 74; RESP 18; TEMP 36.9
--- NOTE | 2018-10-12 14:49 | PCM.PN.OB ---
Patient Problems: Active and Suspected Problems AMA (advanced maternal age) multigravida 35+ (Acute) History of cervical LEEP biopsy affecting care of mother, antepartum (Acute) History of gestational hypertension (Acute) Anemia affecting (Acute) Normal delivery (Acute) First degree perineal laceration during delivery (Acute) Subjective: Doing well per patient and nursing staff. Ambulating without difficulty. Voiding and passing flatus. Denies any headaches, visual changes, chest pain, SOB, leg pain, increased vaginal bleeding or clots. without complaints. Planning D/C home tomorrow. - Physical Exam General: Alert, Oriented x3, Cooperative HEENT: Atraumatic, Normocephalic Lungs: Clear to auscultation, Normal air movement, No rhonchi, No wheeze Cardiovascular: Regular rate, Regular Rhythm, No murmurs Abdomen: Bowel Sounds Present, Non Tender Extremities: No edema, - - Dary's negative bilaterally Neurological: Deep Tendon Reflexes 2+/4 and Symmetrical Psych/Mental Status: Normal Affect, Appropriate Vital Signs Temp Pulse Resp BP 98.4 F 74 18 103/64 10/12/18 14:00 10/12/18 14:00 10/12/18 14:00 10/12/18 14:00 Oxygen Delivery Method Room Air Weight: 123 lb 7.342 oz Body Mass Index (BMI) 22.6 Intake and Output for Last 24 Hours 10/10/18 10/11/18 10/12/18 23:59 23:59 23:59 Intake Total 385 / 385 Output Total 300 / 300 Balance 385 / 385 -300 / -300 Laboratory Tests Past 24 Hrs 10/11/18 10/11/18 10/11/18 16:40 17:45 17:45 WBC 6.4 RBC 4.30 Hgb 10.8 L Hct 34.8 L MCV 80.9 L MCH 25.1 L MCHC 31.0 L RDW 20.7 H RDW Differential 58.2 H Plt Count 146 L MPV 10.8 Differential Comment SEE COMMENT Vag Amniotic Fld Detect Negative Blood Type O NEGATIVE Antibody Screen TNP 10/11/18 17:45 WBC RBC Hgb Hct MCV MCH MCHC RDW RDW Differential Plt Count MPV Differential Comment Vag Amniotic Fld Detect Blood Type Antibody Screen NEGATIVE Medical Necessity - Tobacco Use Smoking Status: Former smoker Assessment/Plan All Active Problems AMA (advanced maternal age) multigravida 35+ (Acute) History of cervical LEEP biopsy affecting care of mother, antepartum (Acute) History of gestational hypertension (Acute) Anemia affecting (Acute) Normal delivery (Acute) First degree perineal laceration during delivery (Acute) A:PPD #1 1st degree perineal laceration P: 1) Routine care 2) Continue with Ibuprofen for pain 3) Planning D/C home tomorrow. 4) Declines LARC, planning Micronor until gets vasectomy. 5) Hgb 10.8, will start Ferrous Sulfate 325mg PO BID
--- NOTE | 2018-10-12 15:20 | DCINST_ITS ---
Discharge Diet: No Restrictions Discharge Activity: Return to Normal Activity, May Drive, May Shower, May Take a Tub Bath May resume sexual activity in: 4-6 weeks Weight Bearing Status: Full weight bearing Lifting Restrictions: 25 lbs Call your doctor if your incision/area has: Continuous Slow Oozing, Sudden Increased Bleeding, Increased Pain/ Swelling, Increased Redness, Foul Smelling Discharge Call your doctor if you observe: Fever of 101 or Higher, Numbness or Tingling, Inability to urinate, Inability to have a bowel movement, Using more than one pad per hour, Shortness of breath, Increased palpitations (irregular heartbeat), Calf discomfort, Uncontrolled pain Additional Instructions: If you experience any of the following, contact your healthcare provider. * Bleeding that soaks a pad every hour for 2 hours * Fever 100.4 or higher * Unrelieved incision or abdominal pain * Swelling, redness, discharge or bleeding from your incision or episiotomy site * Your incision begins to separate * Problems urinating (including inability to urinate or burning while urinating). * Visual changes * Severe headache * Flu-like symptoms * Pain or redness in one of both of your breasts * Pain, warmth, tenderness or swelling in your legs, especially the calf area * Frequent nausea and vomiting * Symptoms of depression or anxiety If you experience any of the following, call 911 or go to the nearest Emergency Room. * Chest pain * Problems breathing * Seizure activity * Partial or complete paralysis of a body part, slurred speech, weakness or drooping of the face, or a sudden inability to walk or hold your balance Allergies/Adverse Reactions: Allergies No Known Allergies Allergy (Verified 10/11/18 17:17) Medications to take at Discharge Prenatabs FA 2 gum PO DAILY 06/21/14 Famotidine [Pepcid] 40 mg PO BID 10/02/18 Ferrous Sulfate [Slow Fe] 142 mg PO DAILY 10/02/18 Ibuprofen [Motrin] 600 mg PO Q6H PRN PRN 7 Days #30 tablet 10/12/18 The following prescriptions were given: Ibuprofen [Motrin] 600 mg PO Q6H PRN PRN 7 Days #30 tablet PRN Reason: Mild Pain (-11/23) Please Follow Up With: Traci Conteh MD When: Call to make an appointment with your doctor in 2weeks and 6 weeks for visit. If you had elevated Blood Pressure or 4th degree laceration you will need to be seen in 2 weeks. Primary Care Physician: Care Physician,No Primary [Primary Care Provider] - Test Results: Test results from this visit will be discussed in further detail at your follow- up appointment, if applicable.
[2018-10-12] MEDS: Ferrous Sulfate 325 MG Tablet PO (15:54)
[2018-10-12 16:00] VITALS: BP 105/64; PULSE 83; RESP 16; TEMP 36.8
[2018-10-12] MEDS: Famotidine 20 MG Tablet PO (18:05)
[2018-10-12 20:03] VITALS: BP 105/65; PULSE 79; RESP 18; TEMP 36.7; O2SAT 97
[2018-10-13] MEDS: Ibuprofen 600 MG Tablet PO ×2 (02:18→08:24)
[2018-10-13 02:24] VITALS: BP 92/56; PULSE 72; RESP 18; TEMP 36.6
[2018-10-13 07:57] VITALS: BP 94/64; PULSE 76; RESP 16; TEMP 36.6; O2SAT 97
--- NOTE | 2018-10-13 08:11 | PCM.PN.OB ---
Patient Problems: Active and Suspected Problems First degree perineal laceration during delivery (Acute) Normal delivery (Acute) AMA (advanced maternal age) multigravida 35+ (Acute) History of cervical LEEP biopsy affecting care of mother, antepartum (Acute) History of gestational hypertension (Acute) Anemia affecting (Acute) Subjective: pt seen at bedside, doing well. pt c/o nausea and some perineal discomfort but overall feeling better today. Lochia mild, breast feeding. - Physical Exam General: Alert, Oriented x3 Abdomen: Soft, Non Tender, Gravid, - - fundus firm Extremities: No Calf Tenderness Vital Signs Temp Pulse Resp BP Pulse Ox 97.8 F 76 16 94/64 97 10/13/18 07:57 10/13/18 07:57 10/13/18 07:57 10/13/18 07:57 10/13/18 07:57 Oxygen Delivery Method Room Air Weight: 56 kg Body Mass Index (BMI) 22.6 Intake and Output for Last 24 Hours 10/11/18 10/12/18 10/13/18 23:59 23:59 23:59 Intake Total 385 / 385 Output Total 900 / 900 Balance 385 / 385 -900 / -900 Medical Necessity - Tobacco Use Smoking Status: Former smoker Assessment/Plan All Active Problems First degree perineal laceration during delivery (Acute) Normal delivery (Acute) AMA (advanced maternal age) multigravida 35+ (Acute) History of cervical LEEP biopsy affecting care of mother, antepartum (Acute) History of gestational hypertension (Acute) Anemia affecting (Acute) PPD#2, doing well routine care pain mgmt [facility] clint
[2018-10-13] MEDS: Ondansetron ODT 4 MG Tablet PO (08:23)
[2018-10-13] MEDS: Famotidine 20 MG Tablet PO (12:17)
[2018-10-13] MEDS: Ferrous Sulfate 325 MG Tablet PO (12:17)
[2018-10-13 16:12] VITALS: BP 118/73; PULSE 88; RESP 16; TEMP 36.6
== END 2018-10-13 15:40 | disposition home or self-care (01) | DRG 560 ==
LOC: WP 19:42 → WPOUT 19:42
PROVIDERS: Advanced Practice Midwife; Admitting Provider Obstetrics & Gynecology; Visit Provider Obstetrics & Gynecology
DX: O13.4 Gestational [pregnancy-induced] hypertension without significant proteinuria, complicating childbirth (principal); O69.81X0 Labor and delivery complicated by cord around neck, without compression, not applicable or unspecified; O70.0 First degree perineal laceration during delivery; O99.02 Anemia complicating childbirth; D64.9 Anemia, unspecified; Z79.899 Other long term (current) drug therapy; Z87.891 Personal history of nicotine dependence; Z3A.37 37 weeks gestation of pregnancy; Z37.0 Single live birth
CPT/HCPCS: 59025; 59050; 84112; 85027; 86850; 86900; 99218; J7120; A4216; G0378; J2405

== ENCOUNTER 2019-10-08 10:15 | Day surgery (SDC) | payer MEDICAID, SELFPAY ==
[2019-10-08] VITALS (7 sets, daily range): BP systolic 101–122; BP diastolic 66–84; PULSE 65–77; RESP 16; TEMP 36.1–37.2; O2SAT 100; BMI 20.1
--- NOTE | 2019-10-08 07:51 | HP.PCM_ITS ---
History and Physical Date of Admission: 10/08/19 Traci Parada Physician [employer]ER H&P Signed Encounter Date: 10/06/2019 Expand All Collapse All Hide copied text Viridiana for details Seema Longo is a 39 year old female who presents for missed ab 10 weeks diagnosis at her new OB appointment. Patient denies any vaginal bleeding pain or fevers. Patient would like to proceed with surgical management. ? PAST MEDICAL HISTORY PAST MEDICAL HISTORY Diagnosis Date ? Abnormal glandular Papanicolaou smear of cervix ? ? Abn. Pap smear (cervix) ? Anemia during in third trimester 08/13/2018 ? Colitis ? ? Hemorrhoids ? ? Infertility, female ? ? Other and unspecified ovarian cyst ? ? Ovarian cyst ? PAST SURGICAL HISTORY PAST SURGICAL HISTORY Procedure Laterality Date ? CERVIX UTERI CONIZA LP ELCTRO EXCI ? 2003 ? LEEP-Cervix, [place] ? COLPOSCOPY (VAGINOSCOPY) ? ? ? Colposcopy ? FAMILY HISTORY FAMILY HISTORY Problem Relation Age of Onset ? Lipids Father ? ? Diabetes Maternal Grandmother ? ? Cancer Maternal Grandmother ? ? skin cancer ? Prostate Cancer Maternal Grandfather ? ? Prostate Cancer Paternal Grandfather ? ? SOCIAL HISTORY Social History ? Tobacco Use ? Smoking status: Former Smoker ? ? Years: 2.00 ? ? Types: Cigarettes ? ? Last attempt to quit: 09/16/1999 ? ? Years since quittin.0 ? Smokeless tobacco: Never Used Substance Use Topics ? Alcohol use: Yes ? ? Comment: Occasionally, NOT WHILE ? Drug use: No ? CURRENT MEDICATIONS Current Outpatient Medications Medication Sig ? Crzhbegl-Km-Kmy-Fe-FA ( VITAMIN) tab Take 1 tablet by mouth. ? Norethindrone, Contraceptive, (ORTHO MICRONOR) 0.35 mg tablet Take 1 tablet by mouth once daily. (Patient not taking: Reported on 10/06/2019 ) ? famotidine (PEPCID) 20 mg tablet Take 1 tablet by mouth twice daily. (Patient not taking: Reported on 11/25/2018 ) ? Ferrous Sulfate (SLOW FE) 142 mg (45 mg iron) TbER Take 1 tablet by mouth once daily. (Patient not taking: Reported on 11/25/2018 ) ? No current facility-administered medications for this visit. ? Allergies As of Date: 10/06/2019 Allergen Noted Reaction POISON ERIC 02/08/2015 Rash ? Fully Assessed 10/06/2019 ? ? REVIEW OF SYSTEMS Abdomen: No abdominal pain, nausea, vomiting, diarrhea, or constipation. Bladder: no dysuria . Breast: No breast lumps, nipple d/c, overlying skin changes, redness or skin retraction. Expanded ROS: GENERAL: No weight loss, malaise or fevers Allergies and current medication updated:Yes ? EXAM: BP 100/64 Ht 5' 2 (1.58m) Wt 111 lb (50.3kg) LMP 06/25/2019 BMI 20.30 kg/(m^2). ? GENERAL: pleasant, female in no apparent distress HEENT: Normocephalic, atraumatic, mucus membranes moist and no lesions NECK: Supple, full range of motion, no adenopathy and thyroid normal DERMATOLOGY: Normal, without lesions, non-icteric and non-hirsute BREAST: soft, non-tender, symmetric, no dominant mass, normal nipple-areolar complex, no lymphadenopathy and no nipple discharge ABDOMEN: soft, non-tender and no masses PELVIC: external genitalia normal, normal Bartholin's glands, urethra, [place]'s glands, no vulvar lesions, no cervical lesions, good vaginal support, physiologic discharge present, normal appearing perineal body and perianal region BIMANUAL: no adnexal masses, non-tender and 12 week size NEURO: alert and oriented x3,exam grossly non-focal EXTREMITIES: normal ? ASSESSMENT AND PLAN: Encounter Diagnosis ? ? ICD-10-CM ? 1. Missed O02.1 ? 2. Sterilization consult Z30.09 ? 3. Encounter for screening for malignant neoplasm of cervix Z12.4 PAP FLUID CERVICAL SCREENING 4. Special screening examination for human papillomavirus (HPV) Z11.51 PAP FLUID CERVICAL SCREENING ? Pt has been counseled on risks/benefits and alternatives of surgery including but not limited to anesthesia, bleeding, infection, injury to pelvic structures including bowel, bladder, ureters and vessels. Pt wishes to proceed with surgery at this time. ? ? Traci Conteh MD ?
[2019-10-08 10:46] LABS: Hematocrit 41.1 % (37-47); Hemoglobin 13.8 g/dL (12.0-15.0); Mean Corp Hgb Conc 33.6 g/dL (32-36); Mean Corpuscular Hgb 27.8 pg (27.0-32.0); Mean Corpuscular Volume 82.7 fL (81-99); Mean Platelet Vol. 9.7 fl (6.2-12.0); Platelet Count 234 K/mm3 (150-450); RBC Distribution Width CV 12.2 % (11.6-14.6); RBC Distribution Width SD 37.1 fl (35.1-43.9); Red Blood Count 4.97 M/mm3 (4.2-5.4); White Blood Count 5.1 K/mm3 (4.4-11.0)
[2019-10-08] MEDS: Doxycycline 100 MG CAPSULE PO (10:50)
--- NOTE | 2019-10-08 12:00 | POC_PTH ---
PATIENT: ERICA AGUILAR LOC: [facility] U#:[id number] AGE/SX: 39/F ROOM: RE10/08/[address]: Dr. Traci Conteh, MDDOB: 1980 BED: DIS: 10/08/2019 SPEC #: [id number] RECD: 10/08/19 12:37 STATUS: ANANYA RELillian #: [id number] JAVON: 10/08/19 12:[address]: Traci Conteh DEPT: SURGICAL PATHOLOGY RECD BY: Mo Prescott ENTERED: 10/08/19 13:58 SP TYPE: PROD CONC OTHR DR: No Primary Care Phys Tissues: Product of conception, NOS Procedures: Surgery Specimen Level IV HEADER OPERATION: D & C suction PRE-OP DIAGNOSIS: Missed AB TISSUE SUBMITTED: Products of conception MICROSCOPIC DIAGNOSIS Products of conception: Immature placental tissue, decidual tissue and tissue (products of conception). SJ:laurie 10/09/19 MICROSCOPIC DESCRIPTION Slides are reviewed. GROSS DESCRIPTION Received in fixative is one container labeled with the patient's name and designated products of conception. The specimen consists of a small placental tissue measuring 4 x 3 x 1 cm and weighing 7.1 gm. Also present in the container are multiple pieces of pink-maguire soft tissue measuring in aggregate 6 x 5 x 1.5 cm. tissue is not identified. Home Health Billing Specialist sections are submitted in three cassettes as follows: 1 & 2 - placental tissue, 3 - pink-maguire soft tissue. / ANNAMARIA:laurie 10/08/19 TC:5 CPT: 20629
--- NOTE | 2019-10-08 12:17 | DCINST_ITS ---
Discharge Diet: No Restrictions Discharge Activity: Return to Normal Activity, May Shower, May Take a Tub Bath - in 2 weeks. Call your doctor if you observe: Fever of 101 or Higher, Using more than one pad per hour Allergies/Adverse Reactions: Allergies No Known Allergies Allergy (Verified 10/07/19 15:04) Primary Care Physician: Care Physician,No Primary [Primary Care Provider] - Test Results: Test results from this visit will be discussed in further detail at your follow- up appointment, if applicable.
--- NOTE | 2019-10-08 12:26 | PCM.OPRPT ---
Report of Operation Date of Procedure: 10/08/19 Pre-Operative Diagnosis: missed ab 10 weeks Post-Operative Diagnosis: same Surgery/Procedure Performed:: suction D&C Description of Surgical Findings:: 10 singaporean suction catheter used for suction D&C protective signal operations supervisor: none Type of Anesthesia:: MAC Specimen's removed: Products of conception Estimated Blood Loss (mL): 5cc Fluids Replaced: 400cc Description of Procedure: After informed consent was obtained patient was taken to OR and placed in supine position. Anesthesia was given. patient was placed in yellow fin stirrups and prepped and draped in normal sterile fashion. bladder was drained with straight catheter with approximately 100cc of clear yellow urine expelled. Weighted speculum placed in posterior fornix of vaginal, single tooth tenaculum was used to gently grasped anterior lip of cervix. . Cervix was then gently dilated in an incremental fashion. Was adequate dilation was achieved the 10french suction catheter was placed. suction curettage performed until no tissue was expelled and cavity was deemed empty. gentle sharp curettage performed- no retained POC noted.The tissue was then sent to pathology for examination. No complications. At this time procedure was deemed complete and successful. Tenaculum removed, speculum removed. Good hemostasis appreciated. Vaginal sweep was negative. Instrument and lap count correct x 2. I anticipate normal postoperative course. Grafts/Implants Used: none - Complications none - Admit VTE Documentation VTE Present on Admission: Yes VTE Mechan Device Prophylaxis: SCD's VTE Pharm Prophylaxis ordered?: No
== END 2019-10-08 13:49 | disposition home or self-care (01) ==
LOC: SDC 10:15 → AC 10:17
PROVIDERS: Referring Provider Obstetrics & Gynecology; Visit Provider Obstetrics & Gynecology
PROC: (CPT 59820; principal; 2019-10-08 11:45)
DX: O02.1 Missed abortion (principal); D64.9 Anemia, unspecified; K58.9 Irritable bowel syndrome, unspecified; K21.9 Gastro-esophageal reflux disease without esophagitis; Z87.891 Personal history of nicotine dependence; Z3A.10 10 weeks gestation of pregnancy
CPT/HCPCS: 59820; 85027; 86850; 86900; 86901; 88305; 90384; J7120; J2405; J2790

== ENCOUNTER 2019-10-12 18:33 | Observation (INO) | payer MEDICAID, SELFPAY ==
[2019-10-08 10:56] VITALS: BMI 20.1
[2019-10-12 18:34] VITALS: BP 123/75; PULSE 84; RESP 16; TEMP 36.6; O2SAT 99; BMI 20.1
--- NOTE | 2019-10-12 18:55 | CT_ITS ---
STUDY: CT ABDOMEN AND PELVIS WITH CONTRAST REASON FOR EXAM: Female, 39 years old. PT STATED EPIGASTRIC PAIN FOLLOWING DILATION AND CURETTAGE SURGERY 4 DAYS AGO. RADIATION DOSAGE (If Supplied By Facility): CTDIvol = ( 4.77 ) mGy, DLP = ( 306.32 ) mGycm TECHNIQUE: Transaxial images were obtained from the dome of the diaphragm to the symphysis pubis without oral contrast. IV 100mL Isovue-300 was administered. Sagittal and coronal images were reconstructed. Individualized dose optimization techniques were used for this CT. COMPARISON: April 02, 2012 FINDINGS: The visualized lung bases are unremarkable. The visualized portions of the heart are within normal limits. Normal liver. Normal gallbladder and extrahepatic biliary system. Trace pericholecystic fluid. Normal spleen. Normal pancreas. Normal bilateral adrenal glands. Normal right kidney. Nonobstructive punctate stone in the left kidney. Normal visualized stomach. Normal small intestine. Normal colon. The appendix is visualized and appears normal. Normal abdominal aorta. Normal inferior vena cava. Normal retroperitoneum. Normal urinary bladder. Left adnexal 1.5 cm cystic nodule. Normal abdominal wall. Normal osseous structures. CT/Abdomen/Pelvis W IV Cont ONLY IMPRESSION: Small left adnexal cystic nodule. Nonobstructive punctate left renal stone. Trace pericholecystic fluid. Electronically Signed: Caio Evans DO at 20:55 EST Tel [phone], Service support ,
--- NOTE | 2019-10-12 18:55 | EKG12_ITS ---
Test Reason : DIZZY Blood Pressure : / mmHG Vent. Rate : 064 BPM Atrial Rate : 064 BPM P-R Int : 160 ms QRS Dur : 086 ms QT Int : 400 ms P-R-T Axes : 070 057 061 degrees QTc Int : 412 ms Normal sinus rhythm Normal ECG Confirmed by REENA VANEGAS, TIFFANIE ([id number]), pictures editor COLTON COLEMAN ([id number]) on 10/14/2019 1:47:56 PM Referred By: DC Confirmed By:TIFFANIE VALLES MD
--- NOTE | 2019-10-12 19:02 | NURSING ---
NO OLD EKG
[2019-10-12] MEDS: 0.9% Normal Saline 1,000 ML 1000 ML IV (19:15)
[2019-10-12] MEDS: Ondansetron 4 MG/2 ML Vial IV ×2 (19:16→21:45)
[2019-10-12 19:27] LABS: Bacteria 0 SEEN /hpf (None Seen); Mucous, Urine 0 SEEN /hpf (<or=2+)
[2019-10-12 19:42] LABS: Color, Urine Yellow (Yellow); Glucose, Dipstick Normal (Normal); Ketone-Dipstick 50 mg/dl (Negative); Leukocyte Esterase-Dipstick 25 /ul (Negative); Nitrite-Dipstick Negative (Negative); Occult Blood-Urine 250 /ul (Negative); Protein-Dipstick 15 mg/dl (Negative); Specific Gravity, Urine 1.015 (1.002-1.030); Urine Bilirubin Dipstick Negative (Negative); Urine Clarity Clear (Clear); Urine Urobilinogen Normal (Normal)
[2019-10-12 19:58] LABS: AST(SGOT) 12 U/L (15-37); Alanine Aminotransfer ALT/SGPT 12 U/L (13-56); Albumin, Serum 3.5 g/dL (3.2-5.0); Alkaline Phosphatase 54 U/L (45-117); Anion Gap 6 (5-15); BUN 15 mg/dL (7-18); BUN/Creat Ratio 21.3 RATIO (10-20); Calcium,Total 8.7 mg/dL (8.5-10.1); Chloride 107 mmol/L (98-107); EST Glomerular Filtration Rate 98 mL/min (>60); Est Glom Filt Rate - Afr Amer 118 mL/min (>60); Estimated Creatinine Clearance 84.15 ml/min; Globulin 3.6 g/dL (2.2-4.2); Glucose 83 mg/dL (74-106); Lipase 69 U/L (73-393); Potassium 3.4 mmol/L (3.5-5.1); Protein, Total 7.1 g/dL (6.4-8.2); Sodium Level 137 mmol/L (136-145)
[2019-10-12 19:59] LABS: Absolute Neutrophil Count 2.4 X10^3/uL (2.0-7.7); Basophil# 0.04 X10^3/uL; Basophil% 0.7 % (0-1); Eosinophil# 0.16 X10^3/uL; Eosinophils% 2.8 % (0-5); Hematocrit 38.8 % (37-47); Hemoglobin 13.1 g/dL (12.0-15.0); Mean Corp Hgb Conc 33.8 g/dL (32-36); Mean Corpuscular Hgb 27.9 pg (27.0-32.0); Mean Corpuscular Volume 82.6 fL (81-99); Mean Platelet Vol. 9.6 fl (6.2-12.0); Monocyte# 0.44 X10^3/uL; Monocyte% 7.7 % (0-10); NRBC Flagged by Analyzer 0 % (0-5); Neutrophil # 2.39 X10^3/uL (2.7-7.7); Neutrophil % 41.6 % (47-70); Platelet Count 255 K/mm3 (150-450); RBC Distribution Width CV 12.2 % (11.6-14.6); White Blood Count 5.7 K/mm3 (4.4-11.0)
--- NOTE | 2019-10-12 20:08 | RAD_ITS ---
STUDY: X-RAY CHEST REASON FOR EXAM: Female, 39 years old. Dizziness TECHNIQUE: PA and lateral views of the chest COMPARISON: None. FINDINGS: The lungs are clear. There are no pleural effusions. There is no pneumothorax. The heart is normal in size. The visualized osseous structures are within normal limits. RAD/Chest PA and Lateral IMPRESSION: No acute thoracic pathology. Electronically Signed: Phillip Barber, at 20:30 EST Tel , Service support ,
[2019-10-12 20:33] VITALS: RESP 16
[2019-10-12 20:40] LABS: Red Blood Cells-Urine 25-50 SEEN /hpf (0-5); Squamous Epithelial Cells - UA 0-5 SEEN /hpf (5-10); White Blood Cells 0-5 SEEN /hpf (0-5)
--- NOTE | 2019-10-12 21:10 | US_ITS ---
STUDY: ABDOMINAL ULTRASOUND - RIGHT UPPER QUADRANT REASON FOR VISIT: Female, 39 years old RUQ PAIN TECHNIQUE: Ultrasound evaluation of the right upper quadrant was performed with real-time and static nielson-scale imaging. TECHNICAL QUALITY: Adequate. COMPARISON: None. FINDINGS: Liver: The liver measures 13.2 cm. There is normal echogenicity of the liver. The bile ducts are within normal limits. There is hepatic color flow. The direction of portal flow is hepatopetal. There is no demonstrated mass lesion. Gallbladder: Normal distended gallbladder. The gallbladder wall measures 2.7 mm. There is a negative sonographic Warren''s sign. There is trace pericholecystic fluid. There are no gallstones. Common Bile Duct (C.B.D.): The common bile duct measures 2.6 mm. Pancreas: Normal size of the head, body and tail of the pancreas. There is normal echogenicity of the pancreas. There is no demonstrated pancreatic mass or cyst. Right Kidney: Normal size of the right kidney. The right kidney measures 10.4 x 5.8 x 3.6 cm. Normal renal cortex. The right cortex measures 1.0 cm. There is no demonstrated renal mass or cyst. There is no right hydronephrosis. US/Gallbladder IMPRESSION: Trace pericholecystic fluid. Electronically Signed: Caio Evans DO at 23:50 EST Tel [phone], Service support ,
[2019-10-12 22:05] VITALS: RESP 17
--- NOTE | 2019-10-12 22:05 | ED.DCSUM_ITS ---
- ER Visit Summary Date of Service: 10/12/19 Chief Complaint: Lightheaded and dizzy History of Present Illness: The patient is a 39 F with lightheadedness and dizziness for 4 days after a D&C. She had miscarried, and the D&C was performed by Dr. Parada. She continues to have some mild bleeding, but it is not increasing. She presents today because she has upper abdominal pain and fullness as well as nausea. She feels that she is getting out of breath and she is having tingling in her fingers. She reports decreased PO intake. No other significant surgical history or medical history. Physical Examination: Afebrile and vital signs unremarkable. Alert and oriented. No acute distress. Heart regular. Lungs clear. Epigastric tenderness without guarding or rebound. Skin appears unremarkable. Test Results: EKG showed sinus rhythm at a rate of 64. Chest x-ray showed nothing acute. Troponin normal. CBC normal. Potassium 3.4. Hepatic panel and lipase unremarkable. Urinalysis shows small amount of blood. CT showed a small left adnexal nodule and a small left punctate renal stone, nonobstructing. There is also trace pericholecystic fluid. Emergency Department Course and Treatment: Patient presents with multiple symptoms after D&C. She is otherwise previously healthy. Her CT did not show any evidence of procedural or surgical complication. She does have some fluid around her gallbladder. I reexamined her, and she does have some tenderness there. She said that is the main spot causing her pain. Otherwise her blood work was fairly unremarkable. We will check a gallbladder ultrasound. I believe this pain is causing her other symptoms. Her work-up otherwise for lightheadedness was unremarkable. I attempted to call her [employer]ER, but at this time have not heard back. Ultrasound results are pending, but I did discuss with Dr. Esteban. If she has any additional abnormal findings on the ultrasound, she will likely need to be admitted for surgery. He requested a call back with the ultrasound results. I reassessed the patient. She is having increasing pain in her right upper quadrant. She was treated with morphine. She says she feels feverish. We will continue to monitor. She may need antibiotics pending ultrasound results. Treatment Plan: As above Disposition: Pending Impression: 1. Right upper quadrant pain This note was generated with Vennliation software. It may contain incorrect words, spelling, and punctuation that were not noted in review of the chart prior to signing ED Disposition - Plan for ED Patient: Referrals: Care Physician,No Primary [Primary Care Provider] -
[2019-10-12] MEDS: Morphine 4 MG/ML Syringe IV (23:18)
[2019-10-12 23:21] VITALS: BP 114/75; PULSE 61; RESP 17; O2SAT 100
[2019-10-13] VITALS (12 sets, daily range): BP systolic 87–121; BP diastolic 52–75; PULSE 46–61; RESP 12–18; TEMP 36.3–36.9; O2SAT 98–100; BMI 20.3
--- NOTE | 2019-10-13 00:38 | HP.PCM_ITS ---
Problem List (1) RUQ abdominal pain Status: Acute History of Present Illness Date of Admission: 10/13/19 The patient is a 39 year old F presented with epigastric and right upper quadrant pain. She had a D&C for miscarriage a few days ago. She says ever since she has been having nausea but no vomiting. She is been having right upper quadrant epigastric pain. She denies fevers or chills. Past Medical History Allergies No Known Allergies Allergy (Verified 10/12/19 18:36) Home Medications: Ambulatory Orders Medication Instructions Recorded NK 10/12/19 Surgical History: - - D&C a few days ago Smoking Status: Never smoker - *Family History Maternal History Items: No pertinent history Review of Systems Constitutional: Denies: Anorexia, Fever HEENT: Denies: Difficulty Hearing, Difficulty Swallowing Cardiovascular: Denies: Chest Pain Respiratory: Denies: Cough, Shortness of Breath Gastrointestinal: Reports: Abdominal Pain, Nausea. Denies: Constipation, Diarrhea, Vomiting Genitourinary: Denies: Dysuria Musculoskeletal: Denies: Joint Tenderness Skin: Denies: Jaundice Neurological: Denies: Balance problems Hematologic/ Lymphatic: Denies: Anemia VTE Information - Inpt Only VTE Present on Admission: No VTE Mechan Device Prophylaxis: SCD's Patient Problems: Active and Suspected Problems RUQ abdominal pain (Acute) - Physical Exam Vitals/I&O's: Vital Signs Temp Pulse Resp BP Pulse Ox 97.9 F 61 17 114/75 100 10/12/19 18:34 10/12/19 23:21 10/12/19 23:21 10/12/19 23:21 10/12/19 23:21 Oxygen Delivery Method Room Air Weight: 110 lb Body Mass Index (BMI) 20.1 Intake and Output for Last 24 Hours 10/11/19 10/12/19 10/13/19 23:59 23:59 23:59 Intake Total 1000 / 1000 Balance 1000 / 1000 General: Alert, Oriented x3 HEENT: Atraumatic Neck: No JVD Lungs: Clear to auscultation, Normal air movement Cardiovascular: Regular rate, Regular Rhythm Abdomen: Soft, Non-Distended, Tender - Tender in the epigastric and right upper quadrant. No guarding or rebound. Remainder of the abdomen is soft and nontender. Extremities: No clubbing Skin: No rashes Musculoskeletal: No Muscle Wasting Neurological: Cranial nerves II-XII grossly intact Psych/Mental Status: Normal Affect Laboratory Results 10/12/19 19:07: Urine Color Yellow, Urine Clarity Clear, Urine pH 6.0, Ur Specific [place] 1.015, Urine Protein 15 H, Urine Glucose (UA) Normal, Urine Ketones 50 H, Urine Occult Blood 250 H, Urine Nitrite Negative, Urine Bilirubin Negative, Urine Urobilinogen Normal, Ur Leukocyte Esterase 25 H, Urine RBC 25-50 SEEN, Urine WBC 0-5 SEEN, Ur Squamous Epith Cells 0-5 SEEN, Urine Bacteria 0 SEEN, Urine Mucus 0 SEEN 10/12/19 19:19: WBC 5.7, RBC 4.70, Hgb 13.1, Hct 38.8, MCV 82.6, MCH 27.9, MCHC 33.8, RDW Std Deviation 37.0, RDW Coeff of Gracie 12.2, Plt Count 255, MPV 9.6, Immature Gran % (Auto) 0.200, Neut % (Auto) 41.6 L, Lymph % (Auto) 47.0 H, [place] % (Auto) 7.7, Eos % (Auto) 2.8, Baso % (Auto) 0.7, Absolute Neuts (auto) 2.4, Absolute Lymphs (auto) 2.70, Nucleated RBC % 0 10/12/19 19:19: Sodium 137, Potassium 3.4 L, Chloride 107, Carbon Dioxide 24.0, Anion Gap 6, BUN 15, Creatinine 0.70, Estim Creat Clear Calc 84.15, Est GFR (MDR D) Af Amer 118, Est GFR (MDRD) Non-Af 98, BUN/Creatinine Ratio 21.3 H, Glucose 83, Calcium 8.7, Total Bilirubin 0.50, AST 12 L, ALT 12 L, Alkaline Phosphatase 54, Troponin I < 0.015, Total Protein 7.1, Albumin 3.5, Globulin 3.6, Albumin/Globulin Ratio 1.0, Lipase 69 L 10/13/19 00:15: Monoscreen Pending 10/13/19 00:15: Hepatitis A IgM Ab Pending, Hep Bs Antigen Pending, Hep B Core IgM Ab Pending, Hepatitis C Ab (EIA) Pending Clinical Impression(s) from Imaging Studies Abdomen/Pelvis CT 10/12/19 18:55 IMPRESSION: Small left adnexal cystic nodule. Nonobstructive punctate left renal stone. Trace pericholecystic fluid. Electronically Signed: Caiokianna Evans DO at 20:55 EST Tel [phone], Service support , Chest X-Ray 10/12/19 20:08 IMPRESSION: No acute thoracic pathology. Electronically Signed: Phillip Barber, at 20:30 EST Tel , Service support , Gallbladder Ultrasound 10/12/19 21:10 IMPRESSION: Trace pericholecystic fluid. Electronically Signed: Caio Evans DO at 23:50 EST Tel [phone], Service support , Assessment/Plan All Active Problems RUQ abdominal pain (Acute) First degree perineal laceration during delivery (Acute) Normal delivery (Acute) AMA (advanced maternal age) multigravida 35+ (Acute) History of cervical LEEP biopsy affecting care of mother, antepartum (Acute) History of gestational hypertension (Acute) Anemia affecting (Acute) 39-year-old female with right upper quadrant pain 1. The patient reports a few day history of nausea and not being able to eat and right upper quadrant pain. She had a CT scan due to her recent D&C which is normal except for some pericholecystic fluid. Also currently an ultrasound performed which showed no gallstones. She had no thickening of the wall of her gallbladder but she did have some pericholecystic fluid on the ultrasound as well. Her white count is normal with no left shift. Her LFTs are normal as well. 2. It is the patient would have right upper quadrant pain and pericholecystic fluid with normal thickness of the gallbladder with no gallstones and a normal white count. She does have a history of peptic ulcer disease and has been under a lot of stress. It is possible that she is having inflammation of the duodenum causing this fluid. I will repeat her labs and admit her and keep her n.p.o. I will also start PPI. Possibly performed EGD in the morning to rule out duodenal ulceration. Nish Esteban MD Pager: [facility] [address] [place] [address], [facility] [address] [place] [address] Office:
[2019-10-13 01:01] LABS: Internal QC Validated? YES +Cl - CLEAR BKGD; Monotest Negative (Negative)
[2019-10-13] MEDS: Morphine 2 MG/ML Syringe IV ×4 (02:00→12:50)
[2019-10-13] MEDS: Mag Hydrox/Al Hydrox/Simeth 30 ML UDC PO (02:00)
[2019-10-13] MEDS: Lactated Ringers 1,000 ML 100 ML IV ×3 (02:05→23:13)
[2019-10-13] MEDS: Ondansetron 4 MG/2 ML Vial IV ×4 (03:44→23:13)
[2019-10-13 06:21] LABS: Absolute Lymphocyte Count 2.55 X10^3/uL (0.83-4.51); Absolute Neutrophil Count 1.5 X10^3/uL (2.0-7.7); Basophil# 0.03 X10^3/uL; Basophil% 0.7 % (0-1); Eosinophil# 0.21 X10^3/uL; Eosinophils% 4.6 % (0-5); Hematocrit 32.3 % (37-47); Hemoglobin 10.9 g/dL (12.0-15.0); Lymphocyte # 2.55 X10^3/ul (4.0); Lymphocyte % 55.3 % (19-41); Mean Corp Hgb Conc 33.7 g/dL (32-36); Mean Corpuscular Hgb 28.1 pg (27.0-32.0); Mean Corpuscular Volume 83.2 fL (81-99); Mean Platelet Vol. 9.9 fl (6.2-12.0); Monocyte# 0.35 X10^3/uL; Monocyte% 7.6 % (0-10); NRBC Flagged by Analyzer 0 % (0-5); Neutrophil # 1.46 X10^3/uL (2.7-7.7); Neutrophil % 31.6 % (47-70); Platelet Count 188 K/mm3 (150-450); RBC Distribution Width CV 12.3 % (11.6-14.6); RBC Distribution Width SD 37.5 fl (35.1-43.9); Red Blood Count 3.88 M/mm3 (4.2-5.4); White Blood Count 4.6 K/mm3 (4.4-11.0)
[2019-10-13 06:45] LABS: AST(SGOT) 11 U/L (15-37); Alanine Aminotransfer ALT/SGPT 10 U/L (13-56); Albumin, Serum 2.8 g/dL (3.2-5.0); Alkaline Phosphatase 39 U/L (45-117); Anion Gap 5 (5-15); BUN 11 mg/dL (7-18); Calcium,Total 7.6 mg/dL (8.5-10.1); Chloride 113 mmol/L (98-107); Creatinine, Serum 0.69 mg/dL (0.55-1.02); EST Glomerular Filtration Rate 100 mL/min (>60); Est Glom Filt Rate - Afr Amer 121 mL/min (>60); Estimated Creatinine Clearance 85.72 ml/min; Globulin 2.9 g/dL (2.2-4.2); Glucose 75 mg/dL (74-106); Lipase 43 U/L (73-393); Potassium 3.3 mmol/L (3.5-5.1); Protein, Total 5.7 g/dL (6.4-8.2); Sodium Level 142 mmol/L (136-145)
--- NOTE | 2019-10-13 07:50 | PCM.PN.SRG ---
Patient Problems: Active and Suspected Problems RUQ abdominal pain (Acute) Subjective: Patient still complaining of epigastric pain and nausea. - Physical Exam Vitals/I&O's: Vital Signs Temp Pulse Resp BP Pulse Ox 97.9 F 60 16 101/53 L 99 10/13/19 03:49 10/13/19 03:49 10/13/19 03:49 10/13/19 03:49 10/13/19 03:49 Oxygen Delivery Method Room Air Weight: 111 lb 1.808 oz Body Mass Index (BMI) 20.3 Intake and Output for Last 24 Hours 10/11/19 10/12/19 10/13/19 23:59 23:59 23:59 Intake Total 999 110 / 110 Balance 999 110 / 110 General: Alert, Oriented x3 Lungs: Normal air movement Cardiovascular: Regular rate, Regular Rhythm Abdomen: Soft, Non-Distended, Tender - Tender in the epigastric region Laboratory Results 10/12/19 19:07: Urine Color Yellow, Urine Clarity Clear, Urine pH 6.0, Ur Specific [place] 1.015, Urine Protein 15 H, Urine Glucose (UA) Normal, Urine Ketones 50 H, Urine Occult Blood 250 H, Urine Nitrite Negative, Urine Bilirubin Negative, Urine Urobilinogen Normal, Ur Leukocyte Esterase 25 H, Urine RBC 25-50 SEEN, Urine WBC 0-5 SEEN, Ur Squamous Epith Cells 0-5 SEEN, Urine Bacteria 0 SEEN, Urine Mucus 0 SEEN 10/12/19 19:19: WBC 5.7, RBC 4.70, Hgb 13.1, Hct 38.8, MCV 82.6, MCH 27.9, MCHC 33.8, RDW Std Deviation 37.0, RDW Coeff of Gracie 12.2, Plt Count 255, MPV 9.6, Immature Gran % (Auto) 0.200, Neut % (Auto) 41.6 L, Lymph % (Auto) 47.0 H, [place] % (Auto) 7.7, Eos % (Auto) 2.8, Baso % (Auto) 0.7, Absolute Neuts (auto) 2.4, Absolute Lymphs (auto) 2.70, Nucleated RBC % 0 10/12/19 19:19: Sodium 137, Potassium 3.4 L, Chloride 107, Carbon Dioxide 24.0, Anion Gap 6, BUN 15, Creatinine 0.70, Estim Creat Clear Calc 84.15, Est GFR (MDRD) Af Amer 118, Est GFR (MDRD) Non-Af 98, BUN/Creatinine Ratio 21.3 H, Glucose 83, Calcium 8.7, Total Bilirubin 0.50, AST 12 L, ALT 12 L, Alkaline Phosphatase 54, Troponin I < 0.015, Total Protein 7.1, Albumin 3.5, Globulin 3.6, Albumin/Globulin Ratio 1.0, Lipase 69 L 10/13/19 00:15: Monoscreen Negative 10/13/19 00:15: Hepatitis A IgM Ab Pending, Hep Bs Antigen Pending, Hep B Core IgM Ab Pending, Hepatitis C Ab (EIA) Pending 10/13/19 00:15: Influenza Type A Ag Pending, Influenza Type B Ag Pending 10/13/19 05:16: WBC 4.6, RBC 3.88 L, Hgb 10.9 L, Hct 32.3 L, MCV 83.2, MCH 28.1, MCHC 33.7, RDW Std Deviation 37.5, RDW Coeff of Gracie 12.3, Plt Count 188, MPV 9.9, Immature Gran % (Auto) 0.200, Neut % (Auto) 31.6 L, Lymph % (Auto) 55.3 H, [place] % (Auto) 7.6, Eos % (Auto) 4.6, Baso % (Auto) 0.7, Absolute Neuts (auto) 1.5 L, Absolute Lymphs (auto) 2.55, Nucleated RBC % 0 10/13/19 05:16: Sodium 142, Potassium 3.3 L, Chloride 113 H, Carbon Dioxide 24.0, Anion Gap 5, BUN 11, Creatinine 0.69, Estim Creat Clear Calc 85.72, Est GFR (MDRD) Af Amer 121, Est GFR (MDRD) Non-Af 100, BUN/Creatinine Ratio 16.0, Glucose 75, Calcium 7.6 L, Total Bilirubin 0.60, AST 11 L, ALT 10 L, Alkaline Phosphatase 39 L, Total Protein 5.7 L, Albumin 2.8 L, Globulin 2.9, Albumin/Globulin Ratio 1.0, Lipase 43 L Current Medications Acetaminophen (Tylenol) 650 mg PO Q4H PRN PRN PRN Reason: Pain or Fever Lactated Ringer's () 1,000 mls @ 100 mls/hr IV .Q10H YOAN Last Admin: 10/13/19 02:05 Dose: 100 mls/hr Documented by: Pantoprazole Sodium 40 mg/ (Sodium Chloride) 110 mls @ 330 mls/hr IV Q24 YOAN Sodium Chloride () 250 mls @ 15 mls/hr IV .[id number] PRN PRN Reason: Saline Flush Sodium Chloride () 250 mls @ 15 mls/hr IV .[id number] PRN PRN Reason: Additional IVPB Infusion Potassium Chloride () 10 meq in 100 mls @ 100 mls/hr IV BOLUS Q1H YOAN Stop: 10/13/19 10:44 Influenza Virus Vaccine Quadrival (Flucelvax /Fluzone ) 0.5 ml IM .ONCE ONE Stop: 10/13/19 10:01 Morphine Sulfate () 2 - 4 mg IV Q2H PRN PRN PRN Reason: Pain Score 4-10/10 Last Admin: 10/13/19 04:41 Dose: 2 mg Documented by: Ondansetron HCl (Zofran) 4 mg IV Q6H PRN PRN PRN Reason: NAUSEA Last Admin: 10/13/19 03:44 Dose: 4 mg Documented by: Sodium Chloride () 10 - 40 ml IV UD PRN PRN Reason: SALINE FLUSH Medical Necessity - Tobacco Use Smoking Status: Never smoker Assessment/Plan All Active Problems RUQ abdominal pain (Acute) First degree perineal laceration during delivery (Acute) Normal delivery (Acute) AMA (advanced maternal age) multigravida 35+ (Acute) History of cervical LEEP biopsy affecting care of mother, antepartum (Acute) History of gestational hypertension (Acute) Anemia affecting (Acute) 39-year-old female with nausea and epigastric pain 1. Patient had no antibiotics overnight and her white count remains normal. She does not have a left shift. If anything her lymphocytes are elevated suggesting viral illness. Monospot was negative. Hepatitis is pending. I will check an influenza panel. Patient has epigastric pain and nausea. I suggested an EGD to check for peptic ulcer disease. Patient is in agreement. 2. I explained endoscopy in detail to the patient. I explained the risks including but not limited to stroke or heart attack with anesthesia, perforation of the GI tract, bleeding, infection. I explained that any of these could necessitate further emergency surgery. The patient understands and all questions were answered sufficiently. The patient wishes to proceed with procedure. Nish Esteban MD Pager: [facility] [address] [place] [address] [address] [place] [address] Office:
--- NOTE | 2019-10-13 08:39 | OP.EGD_ITS ---
Patient Name: Seema Longo Procedure Date: 10/13/2019 8:18 AM Date of : 1980 Age: 39 Procedure: Upper GI endoscopy Indications: Epigastric abdominal pain, Nausea Providers: Nish Esteban MD Medicines: Monitored Anesthesia Care Patient Profile: This is a 39 year old female. Refer to note in patient chart for documentation of history and physical. Complications: No immediate complications. Procedure: Pre-Anesthesia Assessment: - Prior to the procedure, a History and Physical was performed, and patient medications and allergies were reviewed. The patient's tolerance of previous anesthesia was also reviewed. The risks and benefits of the procedure and the sedation options and risks were discussed with the patient. All questions were answered, and informed consent was obtained. Prior Anticoagulants: The patient has taken no previous anticoagulant or antiplatelet agents. After reviewing the risks and benefits, the patient was deemed in satisfactory condition to undergo the procedure. After obtaining informed consent, the endoscope was passed under direct vision. Throughout the procedure, the patient's blood pressure, pulse, and oxygen saturations were monitored continuously. The gastroscope was introduced through the mouth, and advanced to the second part of duodenum. The upper GI endoscopy was accomplished without difficulty. The patient tolerated the procedure well. Scope In: 8:31:45 AM Scope Out: 8:34:11 AM Total Procedure Duration Time 0 hours 2 minutes 26 seconds Findings: The esophagus was normal. The stomach was normal. The examined duodenum was normal. Impression: - Normal esophagus. - Normal stomach. - Normal examined duodenum. - No specimens collected. Recommendation: - [facility]. - Clear liquid diet. - Continue present medications. Procedure Code(s): --- Professional --- 25598, Esophagogastroduodenoscopy, flexible, transoral; diagnostic, including collection of specimen(s) by brushing or washing, when performed (separate procedure) Diagnosis Code(s): --- Professional --- R10.13, Epigastric pain R11.0, Nausea CPT copyright 2017 [employer]. All rights reserved. The codes documented in this report are preliminary and upon space and missile operations review may be revised to meet current compliance requirements. Nish Esteban MD 10/13/2019 8:38:29 AM This report has been signed electronically. Number of Addenda: 0 Note Initiated On: 10/13/2019 8:18 AM
--- NOTE | 2019-10-13 08:39 | OP.CCLET_ITS ---
10/13/2019 No Primary Care Physician Re : Upper GI endoscopy procedure for Seema Longo Dear Care Physician This procedure was performed on Sunday, October 13, 2019. My impressions and recommendations are as follows: Impressions : - Normal esophagus. - Normal stomach. - Normal examined duodenum. - No specimens collected. Recommendations : - [facility]. - Clear liquid diet. - Continue present medications. My findings are described in the full procedure note, which is enclosed. If I can be of further assistance, please feel free to contact me at Doctor phone number(s): , Work: . Sincerely, Nish Esteban MD 10/13/2019 8:38:29 AM This report has been signed electronically.
[2019-10-13] MEDS: 0.9% Saline Lock 10 ML Syringe IV ×2 (09:39→12:49)
[2019-10-13] MEDS: Potassium Chloride 10mEq/100mL 10 MEQ/100 ML IV.SOLN. 100 MEQ IV BOLUS ×3 (10:23→12:31)
[2019-10-13] MEDS: Sucralfate 1 GM Tablet PO ×2 (11:20→21:00)
--- NOTE | 2019-10-13 16:42 | NM_ITS ---
CLINICAL: 39-year-old female with reported history of abdominal pain and nausea. RADIONUCLIDE HEPATOBILIARY SCINTIGRAPHY COMPARISON: CT of the abdomen-pelvis and abdominal ultrasound reports 10/12/2019 FINDINGS: Following the intravenous administration of 5.7 mCi of 99m Tc Mebrofenin, hepatobiliary images reveal: 1. Relatively prompt and homogeneous radiopharmaceutical concentration is noted by a normal sized liver. No parenchymal defects are identified. 2. Gallbladder activity is identified at 15 minutes post radiopharmaceutical administration. 3. Small intestinal tract is not visualized during 60 minutes of pre-CCK sequential imaging. Small bowel activity is identified following the administration of cholecystokinin. 4. Washout of the radiopharmaceutical by the hepatic parenchyma appears qualitatively normal. Cholecystokinin (0.02 ug/kg) was administered intravenously over a 30-minute period. The post CCK gallbladder ejection fraction calculated at 20 minutes following Cholecystokinin administration was noted to be 93.0 % (normal greater than 35%). During 30 minutes of post CCK imaging, there is no scintigraphic evidence of reflux of the radiotracer into the common hepatic duct or refilling of the gallbladder. PA/Hepatobilliary Img w/Pharm Int IMPRESSION: 1. NORMAL 99m Tc Mebrofenin hepatobiliary imaging examination with Cholecystokinin. A. A gallbladder ejection fraction calculated to be greater than 35% following the administration of Cholecystokinin makes the probability of functional hepatobiliary disease (gallbladder and/or sphincter of Oddi dyskinesia) and/or organic hepatobiliary disease (chronic acalculous cholecystitis and/or cystic duct syndrome) to be low. (Bethel Mcmahon et al, Journal of Nuclear Medicine 32:1695, 1991). Electronically Signed: Gerson Valdivia DO at 11:15 EST Tel , Service support ,
[2019-10-13] MEDS: Acetaminophen 325 MG Tablet 650 MG PO ×2 (16:54→21:00)
[2019-10-14 02:45] VITALS: BP 103/68; PULSE 57; RESP 18; TEMP 36.8; O2SAT 98
[2019-10-14 05:39] LABS: Absolute Lymphocyte Count 1.72 X10^3/uL (0.83-4.51); Absolute Neutrophil Count 1.6 X10^3/uL (2.0-7.7); Basophil# 0.03 X10^3/uL; Basophil% 0.8 % (0-1); Eosinophil# 0.27 X10^3/uL; Eosinophils% 6.8 % (0-5); Hematocrit 35.8 % (37-47); Hemoglobin 11.9 g/dL (12.0-15.0); Lymphocyte # 1.72 X10^3/ul (4.0); Lymphocyte % 43.5 % (19-41); Mean Corp Hgb Conc 33.2 g/dL (32-36); Mean Corpuscular Hgb 27.7 pg (27.0-32.0); Mean Corpuscular Volume 83.4 fL (81-99); Mean Platelet Vol. 9.5 fl (6.2-12.0); Monocyte# 0.28 X10^3/uL; Monocyte% 7.1 % (0-10); NRBC Flagged by Analyzer 0 % (0-5); Neutrophil # 1.62 X10^3/uL (2.7-7.7); Platelet Count 189 K/mm3 (150-450); RBC Distribution Width CV 12.2 % (11.6-14.6); RBC Distribution Width SD 37.2 fl (35.1-43.9); Red Blood Count 4.29 M/mm3 (4.2-5.4)
[2019-10-14 06:05] LABS: AST(SGOT) 10 U/L (15-37); Alanine Aminotransfer ALT/SGPT 10 U/L (13-56); Alkaline Phosphatase 42 U/L (45-117); Anion Gap 8 (5-15); BUN 5 mg/dL (7-18); BUN/Creat Ratio 7.7 RATIO (10-20); Calcium,Total 8.3 mg/dL (8.5-10.1); Chloride 107 mmol/L (98-107); Creatinine, Serum 0.65 mg/dL (0.55-1.02); EST Glomerular Filtration Rate 107 mL/min (>60); Est Glom Filt Rate - Afr Amer 129 mL/min (>60); Estimated Creatinine Clearance 90.99 ml/min; Glucose 55 mg/dL (74-106); Potassium 3.9 mmol/L (3.5-5.1); Sodium Level 139 mmol/L (136-145)
[2019-10-14] MEDS: Ondansetron 4 MG/2 ML Vial IV (06:21)
[2019-10-14 08:00] VITALS: BP 108/64; PULSE 91; RESP 16; TEMP 36.7; O2SAT 98
--- NOTE | 2019-10-14 08:26 | PN.SURG_ITS ---
Patient Problems: Active and Suspected Problems RUQ abdominal pain (Acute) Subjective: Patient had normal EGD yesterday. She is still reporting epigastric pain and nausea - Physical Exam Vitals/I&O's: Vital Signs Temp Pulse Resp BP Pulse Ox 98.1 F 91 16 108/64 98 10/14/19 08:00 10/14/19 08:00 10/14/19 08:00 10/14/19 08:00 10/14/19 08:00 Oxygen Delivery Method Room Air Weight: 111 lb 1.808 oz Body Mass Index (BMI) 20.3 Intake and Output for Last 24 Hours 10/12/19 10/13/19 10/14/19 23:59 23:59 23:59 Intake Total 1000 / 1000 2565.00 / 3065.00 500 / 500 Output Total 800 / 800 0 / 0 Balance 1000 / 1000 1765.00 / 2265.00 500 / 500 General: Alert, Oriented x3 Lungs: Normal air movement Cardiovascular: Regular rate, Regular Rhythm Abdomen: Soft, Tender - Tender in the epigastric region with no guarding or rebound Microbiology Past 72 Hours 10/13/19 11:27 Mucosa - Nasopharyngeal Influenza Types A,B Direct FA (GISELLE) - Final Laboratory Results 10/14/19 05:08: WBC 4.0 L, RBC 4.29, Hgb 11.9 L, Hct 35.8 L, MCV 83.4, MCH 27.7, MCHC 33.2, RDW Std Deviation 37.2, RDW Coeff of Gracie 12.2, Plt Count 189, MPV 9.5, Immature Gran % (Auto) 0.800, Neut % (Auto) 41.0 L, Lymph % (Auto) 43.5 H, [place] % (Auto) 7.1, Eos % (Auto) 6.8 H, Baso % (Auto) 0.8, Absolute Neuts (auto) 1.6 L, Absolute Lymphs (auto) 1.72, Nucleated RBC % 0 10/14/19 05:08: Sodium 139, Potassium 3.9, Chloride 107, Carbon Dioxide 24.0, Anion Gap 8, BUN 5 L, Creatinine 0.65, Estim Creat Clear Calc 90.99, Est GFR (MDRD) Af Amer 129, Est GFR (MDRD) Non-Af 107, BUN/Creatinine Ratio 7.7 L, Glucose 55 L, Calcium 8.3 L, Total Bilirubin 0.80, AST 10 L, ALT 10 L, Alkaline Phosphatase 42 L, Total Protein 6.0 L, Albumin 3.0 L, Globulin 3.0, Albumin/Globulin Ratio 1.0 Current Medications Acetaminophen (Tylenol) 650 mg PO Q4H PRN PRN PRN Reason: Pain or Fever Last Admin: 10/13/19 21:00 Dose: 650 mg Documented by: Lactated Ringer's () 1,000 mls @ 100 mls/hr IV .Q10H YOAN Last Admin: 10/13/19 23:13 Dose: 100 mls/hr Documented by: Pantoprazole Sodium 40 mg/ (Sodium Chloride) 110 mls @ 330 mls/hr IV Q24 [facility] Last Infusion: 10/13/19 10:00 Dose: Infused Documented by: Sodium Chloride () 250 mls @ 15 mls/hr IV .[id number] PRN PRN Reason: Saline Flush Sodium Chloride () 250 mls @ 15 mls/hr IV .[id number] PRN PRN Reason: Additional IVPB Infusion Morphine Sulfate () 2 - 4 mg IV Q2H PRN PRN PRN Reason: Pain Score 4-10/10 Last Admin: 10/13/19 12:50 Dose: 2 mg Documented by: Ondansetron HCl (Zofran) 4 mg IV Q6H PRN PRN PRN Reason: NAUSEA Last Admin: 10/14/19 06:21 Dose: 4 mg Documented by: Sodium Chloride () 10 - 40 ml IV UD PRN PRN Reason: SALINE FLUSH Last Admin: 10/13/19 12:49 Dose: 10 ml Documented by: Sucralfate (Carafate) 1 gm PO 1HR_ACHS [facility] Last Admin: 10/14/19 06:25 Dose: Not Given Documented by: Medical Necessity - Tobacco Use Smoking Status: Never smoker Assessment/Plan All Active Problems RUQ abdominal pain (Acute) First degree perineal laceration during delivery (Acute) Normal delivery (Acute) AMA (advanced maternal age) multigravida 35+ (Acute) History of cervical LEEP biopsy affecting care of mother, antepartum (Acute) History of gestational hypertension (Acute) Anemia affecting (Acute) 39-year-old female with epigastric pain and nausea 1. Patient is still complaining of epigastric pain and nausea. She had normal EGD yesterday. White count continues to be normal despite no antibiotics. I will order a HIDA scan today to evaluate the gallbladder as the only positive finding so far has been pericholecystic fluid. She does not report any fevers or chills. Influenza swab came back negative. Monospot is negative as well. Hepatitis panel still pending. LFTs continue to be normal. Nish Esteban MD Pager: [facility] [address] [place] [address], [address] [place] [address] Office:
--- NOTE | 2019-10-14 09:13 | NURSING ---
OFF UNIT VIA BED FOR SCHEDULED PROCEDURE
[2019-10-14] MEDS: Lactated Ringers 1,000 ML 100 ML IV (11:01)
[2019-10-14] MEDS: 0.9% Saline Lock 10 ML Syringe IV (11:01)
[2019-10-14] MEDS: Sucralfate 1 GM Tablet PO (11:06)
--- NOTE | 2019-10-14 11:10 | PCM.CONS.GEN ---
Problem List (1) RUQ abdominal pain Status: Acute (2) AMA (advanced maternal age) multigravida 35+ Status: Chronic (3) Anemia affecting Status: Resolved (4) First degree perineal laceration during delivery Status: Resolved (5) History of cervical LEEP biopsy affecting care of mother, antepartum Status: Chronic (6) History of gestational hypertension Status: Resolved (7) Normal delivery Status: Inactive Reason for Consult Date of Consultation: 10/14/19 Reason for Consultation: Epigastric discomfort History of Present Illness: The patient is a 39 year old F who underwent suction D&C for amissed ab 10 weeks on 10/08/2019 who presented to the emergency department 4 days later with epigastric discomfort. Ultrasound of the abdomen obtained was questionable for trace pericholecystic fluid. Patient subsequently admitted to the surgical service. Patient has since undergone extensive work-up including HIDA scan which was unremarkable as well as EGD which was unremarkable. Patient however continues to experience significant nausea as well as abdominal pain Patient seen this a.m. complains of lower abdominal pain patient thinks she may have a UTI. Urinalysis obtained on admission was unremarkable except for trace leukoesterase. Repeat urinalysis has therefore been ordered. Past Medical History Past Medical History (Chronic Problems): Chronic Problems AMA (advanced maternal age) multigravida 35+ (Chronic) History of cervical LEEP biopsy affecting care of mother, antepartum (Chronic) Allergies No Known Allergies Allergy (Verified 10/12/19 18:36) Home Medications: Ambulatory Orders Medication Instructions Recorded NK 10/12/19 Surgical History: - - D&C a few days ago Smoking Status: Never smoker - *Family History Maternal History Items: No pertinent history Review of Systems Constitutional: Reports: Anorexia HEENT: Denies: Head Aches, Sinus Congestion, Sinus Drainage Cardiovascular: Denies: Chest Pain, Orthopnea, Palpitations, Paroxysmal Noc. Dyspnea Respiratory: Denies: Cough, Shortness of breath at rest, Shortness of breath upon exertion, Sputum production Gastrointestinal: Reports: Abdominal Pain, Nausea Genitourinary: Denies: Frequency, Hematuria Musculoskeletal: Denies: Joint Pain, Joint Tenderness Skin: Denies: Rash Neurological: Denies: Focal weakness, Numbness, Tingling Psychiatric: Denies: Homicidal Ideations, Suicidal Ideations Patient Problems: Active and Suspected Problems RUQ abdominal pain (Acute) Objective: GENERAL: cooperative HEENT: Atraumatic; EYES; Anicteric, Normal Conjunctiva NECK; supple, normal thyroid, RESPIRATORY: Diminished to auscultation CARDIOVASCULAR: Regular S1 S2, GI: soft, normoactive bowel sounds, : No Renal angle tenderness; EXTREMITIES: No edema, no clubbing, MUSCULOSKELETAL: no muscle waisting NEURO: Awake; no lateralizing signs. SKIN: No Rash PSYCH; Flat affect - Physical Exam Vitals/I&O's: Vital Signs Temp Pulse Resp BP Pulse Ox 98.1 F 91 16 108/64 98 10/14/19 08:00 10/14/19 08:00 10/14/19 08:00 10/14/19 08:00 10/14/19 08:00 Oxygen Delivery Method Room Air Weight: 50.4 kg Body Mass Index (BMI) 20.3 Intake and Output for Last 24 Hours 10/12/19 10/13/19 10/14/19 23:59 23:59 23:59 Intake Total 1000 / 1000 2565.00 / 3065.00 1505 / 1505 Output Total 800 / 800 0 / 0 Balance 1000 / 1000 1765.00 / 2265.00 1505 / 1505 Microbiology Past 72 Hours 10/13/19 11:27 Mucosa - Nasopharyngeal Influenza Types A,B Direct FA (GISELLE) - Final Laboratory Results 10/14/19 05:08: WBC 4.0 L, RBC 4.29, Hgb 11.9 L, Hct 35.8 L, MCV 83.4, MCH 27.7, MCHC 33.2, RDW Std Deviation 37.2, RDW Coeff of Gracie 12.2, Plt Count 189, MPV 9.5, Immature Gran % (Auto) 0.800, Neut % (Auto) 41.0 L, Lymph % (Auto) 43.5 H, [place] % (Auto) 7.1, Eos % (Auto) 6.8 H, Baso % (Auto) 0.8, Absolute Neuts (auto) 1.6 L, Absolute Lymphs (auto) 1.72, Nucleated RBC % 0 10/14/19 05:08: Sodium 139, Potassium 3.9, Chloride 107, Carbon Dioxide 24.0, Anion Gap 8, BUN 5 L, Creatinine 0.65, Estim Creat Clear Calc 90.99, Est GFR (MDRD) Af Amer 129, Est GFR (MDRD) Non-Af 107, BUN/Creatinine Ratio 7.7 L, Glucose 55 L, Calcium 8.3 L, Total Bilirubin 0.80, AST 10 L, ALT 10 L, Alkaline Phosphatase 42 L, Total Protein 6.0 L, Albumin 3.0 L, Globulin 3.0, Albumin/Globulin Ratio 1.0 Current Medications Acetaminophen (Tylenol) 650 mg PO Q4H PRN PRN PRN Reason: Pain or Fever Last Admin: 10/13/19 21:00 Dose: 650 mg Documented by: Lactated Ringer's () 1,000 mls @ 100 mls/hr IV .Q10H YOAN Last Infusion: 10/14/19 11:04 Dose: 0 mls/hr Documented by: Pantoprazole Sodium 40 mg/ (Sodium Chloride) 110 mls @ 330 mls/hr IV Q24 YOAN Last Admin: 10/14/19 11:03 Dose: 330 mls/hr Documented by: Sodium Chloride () 250 mls @ 15 mls/hr IV .[id number] PRN PRN Reason: Saline Flush Sodium Chloride () 250 mls @ 15 mls/hr IV .[id number] PRN PRN Reason: Additional IVPB Infusion Influenza Virus Vaccine Quadrival (Flucelvax /Fluzone ) 0.5 ml IM .ONCE ONE Stop: 10/14/19 11:08 Morphine Sulfate () 2 - 4 mg IV Q2H PRN PRN PRN Reason: Pain Score 4-10/10 Last Admin: 10/13/19 12:50 Dose: 2 mg Documented by: Ondansetron HCl (Zofran) 4 mg IV Q6H PRN PRN PRN Reason: NAUSEA Last Admin: 10/14/19 06:21 Dose: 4 mg Documented by: Promethazine HCl (Phenergan) 12.5 mg IM Q4H PRN PRN PRN Reason: NAUSEA/VOMITING Sodium Chloride () 10 - 40 ml IV UD PRN PRN Reason: SALINE FLUSH Last Admin: 10/14/19 11:01 Dose: 10 ml Documented by: Sucralfate (Carafate) 1 gm PO 1HR_ACHS YOAN Last Admin: 10/14/19 11:06 Dose: 1 gm Documented by: Assessment/Plan All Active Problems RUQ abdominal pain (Acute) First degree perineal laceration during delivery (Resolved) History of gestational hypertension (Resolved) Anemia affecting (Resolved) Patient is a 39-year-old lady presented with abdominal discomfort and nausea after D&C for miscarriage 1. Status post D&C for missed at 10 weeks on 10/09/2019 2. Epigastric discomfort ?Patient underwent extensive work-up including gallbladder ultrasound as well as HIDA scan and EGD with no identifiable etiology found patient still has significant nausea added IM Phenergan for symptomatic treatment 3. Suspected cystitis ?Repeat urinalysis since and if it comes back positive patient will be started on Rocephin with reflex cultures sent Code Visit Office Visits / Consults: [id number] IP Consult L4
[2019-10-14] MEDS: Acetaminophen 325 MG Tablet 650 MG PO (11:11)
[2019-10-14 11:21] LABS: HEPATITIS B SURFACE AG Negative (Negative); Hepatitis A IgM Antibody Negative (Negative); Hepatitis B Core AB IgM Negative (Negative)
[2019-10-14 11:29] LABS: Hep C Antibodies <0.1 s/co ratio (0.0-0.9)
[2019-10-14 12:01] LABS: Bacteria 0 SEEN /hpf (None Seen); Mucous, Urine 0 SEEN /hpf (<or=2+)
[2019-10-14 12:03] LABS: Color, Urine Straw (Yellow); Glucose, Dipstick Normal (Normal); Leukocyte Esterase-Dipstick Negative /ul (Negative); Nitrite-Dipstick Negative (Negative); Occult Blood-Urine 50 /ul (Negative); Protein-Dipstick Negative (Negative); Specific Gravity, Urine 1.015 (1.002-1.030); Urine Bilirubin Dipstick Negative (Negative); Urine Clarity Clear (Clear); Urine Urobilinogen Normal (Normal)
[2019-10-14 12:13] LABS: Ketone-Dipstick 150 mg/dl (Negative)
[2019-10-14 12:18] LABS: White Blood Cells 0-5 SEEN /hpf (0-5)
[2019-10-14 12:19] LABS: Red Blood Cells-Urine 0-5 SEEN /hpf (0-5); Squamous Epithelial Cells - UA 0-5 SEEN /hpf (5-10)
[2019-10-14 14:00] VITALS: BP 112/63; PULSE 88; RESP 16; TEMP 36.8; O2SAT 96
--- NOTE | 2019-10-14 14:40 | PCM.DC ---
- Discharge Diagnoses Current Active Problems: Current Active and Chronic Problems RUQ abdominal pain (Acute) You will use the following diet at home:: Regular Your food should be the consistency of: Regular Discharge Activity: No Restrictions Call your doctor if your incision/area has: Increased Pain/ Swelling Call your doctor if you observe: Fever of 101 or Higher Allergies/Adverse Reactions: Allergies No Known Allergies Allergy (Verified 10/12/19 18:36) Medications to take at Discharge Ondansetron HCl [Zofran] 4 mg PO Q8H PRN PRN 7 Days #20 tab 10/14/19 The following prescriptions were given: Ondansetron HCl [Zofran] 4 mg PO Q8H PRN PRN 7 Days #20 tab PRN Reason: Nausea Transmission Status: Pending to [facility] Primary Care Physician: Care Physician,No Primary [Primary Care Provider] - Test Results: Test results from this visit will be discussed in further detail at your follow-up appointment, if applicable. Please Follow Up With: Traci Schmitt When: Call for appt if not already made Please Follow Up With: Nish Esteban MD When: as needed
--- NOTE | 2019-10-14 15:20 | NURSING ---
pt declined influenza vaccine at this time.
[2019-10-16 03:07] LABS: Influenza A 1:32 (Neg:<1:8)
[2019-10-16 13:14] LABS: Influenza B 1:16 (Neg:<1:8)
== END 2019-10-14 15:40 | disposition home or self-care (01) ==
LOC: ED 19:05 → MS3 10-13 00:43
PROVIDERS: Internal Medicine; Admitting Provider Surgery; Emergency Provider Emergency Medicine; Visit Provider Surgery
PROC: 0DJ08ZZ Inspection of Upper Intestinal Tract, Via Natural or Artificial Opening Endoscopic (ICD-10-PCS; CPT 43235; principal; 2019-10-13 08:25)
DX: R10.11 Right upper quadrant pain (principal); R10.13 Epigastric pain; Z98.890 Other specified postprocedural states; Z87.11 Personal history of peptic ulcer disease; K58.9 Irritable bowel syndrome, unspecified
CPT/HCPCS: 43235; 36415; 71046; 74177; 76705; 78227; 80053; 80074; 81001; 83690; 84484; 85025; 86308; 86710; 87086; 87088; 87804; 93005; 96361; 96365; 96366; 96375; 96376; 99218; 99284; A9537; J7030; J7050; J7120; Q9967; A4216; G0378; J2405; J2805

== ENCOUNTER 2019-11-12 14:55 | Inpatient (IN) | payer MEDICAID, SELFPAY ==
[2019-10-13 07:47] VITALS: BMI 20.3
--- NOTE | 2019-11-10 14:11 | PCM.HP.BLA ---
History and Physical Date of Admission: 11/12/19 Traci Parada Physician [employer] H&P Signed Encounter Date: 10/23/2019 Expand All Collapse All Hide copied text Viridiana for details Seema Longo is a 39 year old female who presents for sterilization consultation. Patient recently had a missed AB at approximately 10 weeks underwent a suction D&C. Patient reports is requesting a laparoscopic bilateral salpingectomy at this time. She has previously signed [facility] 19 form. Patient denies any concerns today. She was recently hospitalized for abdominal pain/gallbladder concerns. Is feeling much better today. ? PAST MEDICAL HISTORY PAST MEDICAL HISTORY Diagnosis Date ? Abnormal glandular Papanicolaou smear of cervix ? ? Abn. Pap smear (cervix) ? Anemia during in third trimester 08/13/2018 ? Colitis ? ? Hemorrhoids ? ? Infertility, female ? ? Other and unspecified ovarian cyst ? ? Ovarian cyst ? PAST SURGICAL HISTORY PAST SURGICAL HISTORY Procedure Laterality Date ? CERVIX UTERI CONIZA LP ELCTRO EXCI ? 2003 ? LEEP-Cervix, [place] ? COLPOSCOPY (VAGINOSCOPY) ? ? ? Colposcopy ? D&C SUCTION ? 10/08/2019 ? Missed AB ? FAMILY HISTORY FAMILY HISTORY Problem Relation Age of Onset ? Lipids Father ? ? Diabetes Maternal Grandmother ? ? Cancer Maternal Grandmother ? ? skin cancer ? Prostate Cancer Maternal Grandfather ? ? Prostate Cancer Paternal Grandfather ? ? SOCIAL HISTORY Social History ? Tobacco Use ? Smoking status: Former Smoker ? ? Years: 2.00 ? ? Types: Cigarettes ? ? Last attempt to quit: 09/16/1999 ? ? Years since quittin.1 ? Smokeless tobacco: Never Used Substance Use Topics ? Alcohol use: Yes ? ? Comment: Occasionally, NOT WHILE ? Drug use: No ? CURRENT MEDICATIONS Current Outpatient Medications Medication Sig ? Gpxfsftb-Rc-Qgr-Fe-FA ( VITAMIN) tab Take 1 tablet by mouth. ? simethicone, chewable (MYLICON) 80 mg chewable tablet Take 1 tablet by mouth every 6 hours as needed. ? ibuprofen (MOTRIN) 600 mg tablet Take 1 tablet by mouth every 6 hours as needed. FOR PAIN. ? phenazopyridine (PYRIDIUM) 200 mg tablet Take 1 tablet by mouth three times daily as needed. ? ibuprofen (MOTRIN) 600 mg tablet Take 1 tablet by mouth every 6 hours as needed. FOR PAIN. ? Norethindrone, Contraceptive, (ORTHO MICRONOR) 0.35 mg tablet Take 1 tablet by mouth once daily. (Patient not taking: Reported on 10/06/2019 ) ? famotidine (PEPCID) 20 mg tablet Take 1 tablet by mouth twice daily. (Patient not taking: Reported on 11/25/2018 ) ? Ferrous Sulfate (SLOW FE) 142 mg (45 mg iron) TbER Take 1 tablet by mouth once daily. (Patient not taking: Reported on 11/25/2018 ) ? No current facility-administered medications for this visit. ? Allergies As of Date: 10/23/2019 Allergen Noted Reaction POISON ERIC 02/08/2015 Rash ? Fully Assessed 10/23/2019 ? ? REVIEW OF SYSTEMS Abdomen: no pain Bladder: no dysuria.. Expanded ROS: GENERAL: Negative for fever Allergies and current medication updated:Yes ? EXAM: BP 94/60 Wt 110 lb (49.9kg) ? GENERAL: pleasant, female in no apparent distress HEENT: Normocephalic, atraumatic, mucus membranes moist and no lesions NECK: full range of motion DERMATOLOGY: Normal, without lesions, non-icteric and non-hirsute BREAST: {BREAST EXAM NEURO: alert and oriented x3,exam grossly non-focal EXTREMITIES: normal ? ASSESSMENT AND PLAN: Encounter Diagnosis ? ? ICD-10-CM ? 1. Encounter for sterilization Z30.2 ? ? 2. Pt has been counseled on risks/benefits and alternatives of surgery including but not limited to anesthesia, bleeding, infection, injury to pelvic structures including bowel, bladder, ureters and vessels. Pt wishes to proceed with surgery at this time. ? 3. POST OP MEDS GIVNE 4. Consent signed. All questions asked. Other forms of reversible contraception were reviewed. ? Traci Conteh MD ?
[2019-11-12] VITALS (37 sets, daily range): BP systolic 101–136; BP diastolic 72–111; PULSE 67–147; RESP 13–23; TEMP 36.9–37.2; O2SAT 97–100; BMI 20.6; BMI 23.1
[2019-11-12 09:48] LABS: Internal QC Validated? YES +Cl - CLEAR BKGD; Pregnancy, Urine Negative Negative
[2019-11-12] MEDS: Lactated Ringers 1,000 ML 100 ML IV ×2 (10:01→15:45)
--- NOTE | 2019-11-12 10:16 | DCINST_ITS ---
Discharge Diet: No Restrictions, - - Increase fluid intake for 48 hours. Discharge Activity: Return to Normal Activity, May Drive - when you are no longer taking narcotic pain medications., May Shower, May Take a Tub Bath - in 7 days., - - Ambulate often the next week after surgery. Additional Activity Instructions:: Nothing in the vagina for the next 5 days. Call your doctor if your incision/area has: Continuous Slow Oozing, Sudden Increased Bleeding, Increased Pain/ Swelling, Increased Redness, Foul Smelling Discharge, Swelling at the incision site Call your doctor if you observe: Fever of 101 or Higher Allergies/Adverse Reactions: Allergies No Known Allergies Allergy (Verified 11/05/19 13:53) Medications to take at Discharge Simethicone [Gas-X] 125 mg PO PRN PRN 11/05/19 Ondansetron HCl [Zofran] 4 mg PO 4X/DAY PRN PRN #20 tab 11/12/19 The following prescriptions were given: Ondansetron HCl [Zofran] 4 mg PO 4X/DAY PRN PRN #20 tab PRN Reason: Nausea Transmission Status: Pending to [facility] Primary Care Physician: Care Physician,No Primary [Primary Care Provider] - Test Results: Test results from this visit will be discussed in further detail at your follow- up appointment, if applicable.
--- NOTE | 2019-11-12 10:55 | FALS_PTH ---
PATIENT: ERICA AGUILAR LOC: [facility] U#:[id number] AGE/SX: 39/F ROOM: [facility] RE11/12/[address]: Dr. Joshua Hagen DO : 1980 BED: 1 DIS: 11/13/2019 SPEC #: [id number] RECD: 11/12/19 13:02 STATUS: ANANYA ALFREDITO #: [id number] JAVON: 11/12/19 10:[address]: Traci Conteh DEPT: SURGICAL PATHOLOGY RECD BY: Jayme Lockwood ENTERED: 11/12/19 13:25 SP TYPE: FALL TUBES OTHR DR: No Primary Care Phys Tissues: Fallopian tube Procedures: Surgery Specimen Level II HEADER OPERATION: Laparoscopic salpingectomy PRE-OP DIAGNOSIS: Sterilization TISSUE SUBMITTED: Bilateral fallopian tubes MICROSCOPIC DIAGNOSIS Bilateral fallopian tubes, salpingectomy: Bilateral fallopian tubes including fimbrial ends, no pathologic diagnosis. Paratubal cyst. SJ:laurie 11/13/19 MICROSCOPIC DESCRIPTION Slides are reviewed. GROSS DESCRIPTION Received is one container labeled with the patient's name and designated bilateral fallopian tubes. The specimen consists of bilateral fallopian tubes including fimbrial ends measuring 6 cm in length and 0.5 cm in diameter and 5.5 cm in length and 0.5 cm in diameter. Sections do not reveal any mass lesion. The fallopian tubes are not identified as right or left. Sections reveal unremarkable cut surfaces. The smaller fallopian tube also show a paratubal cyst measuring 1 cm in greatest dimension. [employer] sections are submitted in two cassettes as follows: 1 - one fallopian tube, 2 - second fallopian tube and paratubal cyst. / ANNAMARIA:laurie 11/12/19 TC:5 CPT: 96545 x2
[2019-11-12] MEDS: Bupivacaine Mpf 0.5% 30 ML VIAL (11:00)
--- NOTE | 2019-11-12 11:09 | OP.PCM_ITS ---
Report of Operation Date of Procedure: 11/12/19 Pre-Operative Diagnosis: desires sterilization Post-Operative Diagnosis: same Surgery/Procedure Performed:: laparoscopic bilateral salpingectomy Description of Surgical Findings:: normal tubes and ovaries bilaterally Type of Anesthesia:: General Special Medications: 0.5% marcaine Specimen's removed: bilateral fallopian tubes Drains: none Estimated Blood Loss (mL): 5 Fluids Replaced: 900 Description of Procedure: placed in supine position she was given anesthesia. She was then placed in the [facility] stirrups and she was prepped and draped in normal sterile fashion. Bladder was drained prior to the start of procedure. At this time attention was turned to the vaginal portion where weighted speculum placed at posterior fornix vagina single-tooth tenaculum was used to gently grasp the internal the cervix. uterus was gently sounded to approximately 8 cm. Uterine manipulator was placed without difficulty. Legs then placed in parallel with the abdomen the tenaculum and the weighted speculum were removed. 2 towel clamps were placed at level of umbilicus. Marcaine was injected umbilically and a small incision was made. The 5 mm trocar was placed under direct visualization. CO2 gas was used to insuffl ate the intra-abdominal cavity. Upon inspection no gross abnormalities appreciated- the uterus tubes and ovaries appeared to be normal. At this time then the LLQ and RLQ ports were placed First Marcaine was injected and small incision was made a knife and the 5 mm trocars were placed. At this time then tubes were traced back to the fimbriated ends. Ligasure was used to coagulate and ligate along mesosalpinx bilaterally until tubes removed completely. Good hemostasis was appreciated. At this time procedure was deemed complete successful. The gas was desufflated on from the intra-abdominal cavity. The trochars were removed. Skin was closed using 4-0 Monocryl in a subcutaneous fashion. Dermabond glue was placed. Instrument lap and needle counts were correct ?2. The uterine manipulator was removed. Vaginal sweep was performed it was negative. There were no complications anticipated normal postoperative course for this patient. Grafts/Implants Used: none - Complications none - Admit VTE Documentation VTE Present on Admission: Yes VTE Mechan Device Prophylaxis: SCD's VTE Pharm Prophylaxis ordered?: No
[2019-11-12 13:36] LABS: Blood Gas Specimen Type VEN; FI02 100; O2 Delivery Device Vent; PEEP 5; RR 14; SITE R Radial; Time Given 1325; VBG BASE EXCESS -2 mmol/L (-1.0-3.5); VBG Bicarbonate 24 mmol/L (22-26); VBG Oxygen Content 25 mmol/L (23-33); VBG PO2 30 mmHg (25-40); VBG SO2 53 % (50-70); VBG pH 7.34 (7.32-7.42); Vt 400
--- NOTE | 2019-11-12 16:06 | PCM.CON.CC ---
Reason for Consult Date of Consultation: 11/12/19 Reason for Consultation: Postoperative respiratory failure History of Present Illness: The patient is a 39-year-old female, with a history as outlined below, who was transferred to the medical intensive care unit from the PACU following laparoscopic bilateral salpingectomy on November 12. The patient did receive general anesthesia intraoperatively, including neuromuscular blocking agents. Postoperatively, despite reversal, the patient did not seem to be recovering from the neuromuscular blocking agents that were employed. Per anesthesia, there was clinical concern that the patient may have an underlying cholinesterase deficiency. The patient had never previously been under general anesthesia. The patient is in an otherwise state of good health. She has no known lung history. Therefore, the patient was transferred to the ICU to allow time for the neuromuscular blocking agents to wear off. On presentation to the ICU, the patient was noted to be afebrile and hemodynamically stable. Past Medical History Past Medical History (Chronic Problems): Chronic Problems Missed (Chronic) Chronic anemia (Chronic) AMA (advanced maternal age) multigravida 35+ (Chronic) History of cervical LEEP biopsy affecting care of mother, antepartum (Chronic) Allergies No Known Allergies Allergy (Verified 11/05/19 13:53) Home Medications: Ambulatory Orders Medication Instructions Recorded Simethicone [Gas-X] 125 mg PO PRN PRN 11/05/19 Ondansetron HCl [Zofran] 4 mg PO 4X/DAY PRN PRN #20 tab 11/12/19 Surgical History: - - D&C a few days ago Smoking Status: Never smoker Tobacco Use: Non-smoker - *Family History Maternal History Items: No pertinent history Paternal History Items: Hypertension Review of Systems Unable to obtain accurate/complete ROS d/t: Due to current intubation and mechanical ventilation status Patient Problems: Active and Suspected Problems Acute respiratory failure with hypoxia (Acute) Objective: The patient's most recent lab work, culture data and imaging studies have all been personally reviewed. - Physical Exam Vitals/I&O's: Vital Signs Temp Pulse Resp BP Pulse Ox 98.4 F 77 14 115/89 H 100 11/12/19 14:36 11/12/19 14:55 11/12/19 14:55 11/12/19 14:36 11/12/19 14:55 Oxygen Delivery Method Mechanical Ventilator Weight: 126 lb 8.725 oz Body Mass Index (BMI) 23.1 Intake and Output for Last 24 Hours 11/10/19 11/11/19 11/12/19 23:59 23:59 23:59 Intake Total 573.33 / 573.33 Output Total 400 / 400 Balance 173.33 / 173.33 General: Alert, No apparent distress, - - Intubated and mechanically ventilated HEENT: Atraumatic, PERRLA, Normocephalic Oral: No Gingival or Mucosal Lesions/ Ulcerations, - - Endotracheal tube in place Neck: Supple, No Nodes, Trachea Midline Lungs: Normal air movement, No rhonchi, No wheeze, No rales Cardiovascular: Regular rate, Regular Rhythm, Normal S1, Normal S2, No murmurs Abdomen: Bowel Sounds Present, Soft, Non Tender Extremities: No clubbing, No cyanosis, No edema Skin: No breakdown Musculoskeletal: No Tenderness to Palpation of Joints or Extremities Lymphatic: No Cervical, Supraclavicular, or Inguinal Adenopathy Neurological: Neuro grossly intact Labs (Last 48 Hours) 11/12/19 11/12/19 09:40 13:29 Specimen Type JANICE Sample Site R Radial O2 % 100 VBG pH 7.34 VBG pO2 30 VBG O2 Sat (Calc) 53 VBG O2 Content 25 VBG Base Excess -2 L POC Mix VBG pCO2 Pt Tmp 44.0 Respiration Rate 14 O2 Delivery Device Vent Tidal Volume 400 POC PEEP 5 Blood Gas Notified Whom RN Blood Gas Notified Time 1325 Urine Test Negative Current Medications Hydrocodone Bitart/Acetaminophen ([place] 5mg-325mg) 1 - 2 tablet PO Q6H PRN PRN PRN Reason: Pain Score 1-5/10 Lactated Ringer's () 1,000 mls @ 100 mls/hr IV .Q10H YOAN Last Admin: 11/12/19 15:45 Dose: 100 mls/hr Documented by: Propofol (Diprivan) 1,000 mg in 100 mls @ 3.066 mls/hr CONT INF .Q12H YOAN; Protocol Fentanyl () 100 mls @ 2.5 mls/hr IV UD YOAN; Protocol Ondansetron HCl (Zofran) 4 mg IM X1 PRN PRN Reason: NAUSEA Assessment/Plan Active and Suspected Problems Acute respiratory failure with hypoxia (Acute) RECOMMENDATIONS: 1. Obtain plain film chest x-ray to confirm endotracheal tube placement. 2. Start propofol and fentanyl for overnight sedation. 3. Wean FiO2 to maintain oxygen saturations at or above 90%. Obtain arterial blood gas. 4. Start Pepcid for GI prophylaxis. 5. Plan for spontaneous breathing trial in the morning and potential extubation. IMPRESSIONS: 1. Postoperative respiratory failure The patient underwent an uncomplicated laparoscopic bilateral salpingectomy on November 12, during which time she did receive general anesthesia, including neuromuscular blocking agents. The patient had never previously been under general anesthesia before. Postoperatively, the patient did not demonstrate recovery from the neuromuscular blocking agents, despite reversal. Per anesthesia, there was concern for an underlying pseudocholinesterase deficiency. The patient did receive succinylcholine. Therefore, the patient was transferred to the ICU for further management. The patient will remained on invasive mechanical ventilatory support overnight. Will obtain plain film chest x-ray to confirm endotracheal tube placement along with arterial blood gas. Plan for spontaneous breathing trial in the morning and potential extubation. TIME: 38 minutes of critical care time, independent of procedures, was spent addressing the patient's postoperative respiratory failure, review of all data and collaboration with the care team. ([id number]) Code Visit 9xxxx: [id number] Critical care first hour
--- NOTE | 2019-11-12 16:10 | RAD_ITS ---
STUDY: X-RAY CHEST REASON FOR EXAM: Female, 39 years old. RECENT D and amp;C X3 DAYS AGO, RESP FAILURE, ETT PLACEMENT TECHNIQUE: Single AP portable view of the chest. COMPARISON: 10/12/2019 FINDINGS: Interval placement of endotracheal tube with the tip approximately 6 cm above the guy. The lungs are clear and expanded. There is no demonstrated pleural abnormality. Normal size heart. Normal mediastinum and jud. Normal visualized pulmonary arteries. Normal visualized aortic arch and descending thoracic aorta. Normal visualized thoracic spine. Normal visualized ribs, clavicles, and shoulders. There is no demonstrated abnormality of the visualized soft tissue structures of the upper abdomen. RAD/Chest 1 View (Portable) IMPRESSION: 1. Interval placement of endotracheal tube with the tip approximately 6 cm above the guy. 2. No active disease. Electronically Signed: Gerson Richard MD at 16:38 EST Tel , Service support ,
--- NOTE | 2019-11-12 16:34 | CON.PCM_ITS ---
Problem List (1) Acute respiratory failure with hypoxia Status: Acute (2) Missed Status: Chronic (3) Chronic anemia Status: Chronic (4) History of cervical LEEP biopsy affecting care of mother, antepartum Status: Chronic (5) History of gestational hypertension Status: Resolved Reason for Consult Date of Consultation: 11/12/19 Reason for Consultation: Medical consultation History of Present Illness: The patient is a 39 y/o F w/ PMHx: Hx abnormal pap smear s/p LEEP, Chronic anemia, Recent missed at approximately 10 weeks s/p D+C who presented originally to the [facility] on 11/12/19 for planned operative intervention per Traci Vega with planned laparoscopic bilateral salpingectomy; however, following operative intervention without event with transition to the PACU, patient unable to be extubated with no prior significant anesthetic ex posure with transition following to the ICU and decision to maintain intubation overnight and attempt extubation in the AM with suspected underlying cholinesterase deficiency as etiology with noted usage of succinylcholine for rapid intubation. Following transition to the ICU from PACU patient without acute events and had actually started to wake up and be more alert but given concerns for potential decline again decision to initiate sedated regimen and continue intubation until a.m. Past Medical History Past Medical History (Chronic Problems): Chronic Problems Missed (Chronic) Chronic anemia (Chronic) AMA (advanced maternal age) multigravida 35+ (Chronic) History of cervical LEEP biopsy affecting care of mother, antepartum (Chronic) Allergies No Known Allergies Allergy (Verified 11/05/19 13:53) Home Medications: Ambulatory Orders Medication Instructions Recorded Simethicone [Gas-X] 125 mg PO PRN PRN 11/05/19 Ondansetron HCl [Zofran] 4 mg PO 4X/DAY PRN PRN #20 tab 11/12/19 Surgical History: - - D&C, LEEP, colposcopy. Psychiatric History: No pertinent psych hx [employer] History: - - Missed recently with follow-up D&C, status post colposcopy and LEEP prior with abnormal Pap smear history. Lives: Spouse/ Significant Other Smoking Status: Never smoker Tobacco Use: Non-smoker Alcohol: None Drugs: None - *Family History Maternal History Items: Hypertension Paternal History Items: Hypertension Review of Systems Constitutional: Reports: Malaise, Weakness, Fatigue. Denies: Anorexia, Chills, Fever, Weight Change HEENT: Reports: Sore Throat. Denies: Head Aches, Sinus Congestion, Sinus Drainage Cardiovascular: Denies: Chest Pain, Palpitations Respiratory: Denies: Cough, Shortness of breath at rest, Sputum production Gastrointestinal: Reports: Abdominal Pain. Denies: Nausea, Vomiting Genitourinary: Denies: Dysuria Gynecological: Reports: Vaginal bleeding Musculoskeletal: Denies: Joint Pain, Joint Tenderness Skin: Denies: Rash, Wounds Neurological: Denies: Numbness, Tingling, Focal weakness Psychiatric: Denies: Anxiety, Depression, Homicidal Ideations, Suicidal Ideations Hematologic/ Lymphatic: Reports: Anemia. Denies: Easy Bruising, Easy Bleeding Comment: ROS given with patient yes and no answers. Awake and alert, intubated, sedation being added. Patient Problems: Active and Suspected Problems Acute respiratory failure with hypoxia (Acute) Subjective: Seated upright in ED bed, intubated, currently being initiated on sedation but awake and alert currently, no acute distress. Objective: Physical Examination: General: awake, alert, answering orientation questions times greater than 3 with yes and no responses, remains completely cooperative, seated upright in the ICU bed in no apparent distress despite current intubation. Skin: normal color, turgor, no icterus, cyanosis. HEENT: AT/NC, EOMI, PERRLA, moderately dry MM, currently intubated, no carotid bruits or JVD noted. Lungs: CTA bilaterally, symmetric rise, no rales, ronchi or wheezing. Heart: Mildly tachycardic with regular rhythm; no gallop, rub audible. Abdomen: soft, expected mild diffuse discomfort with palpation, ND, mildly hyperactive BS, no HSM. Extremities: no cyanosis, clubbing, or edema. Neurological: patient awake, alert, oriented as noted; cognitive function currently suspect near baseline intact as sedation extremely light despite intubation; pupils equally reactive to light and accomodation; cranial nerves grossly normal although some limitation given currently intubated status, able to move extremities, strength deferred given intubated status with bilateral upper extremity restraints in place. Psychiatric: affect appears, mildly anxious, no acute evidence of depressive feelings. - Physical Exam Vitals/I&O's: Vital Signs Temp Pulse Resp BP Pulse Ox 98.4 F 77 14 115/89 H 100 11/12/19 14:36 11/12/19 14:55 11/12/19 14:55 11/12/19 14:36 11/12/19 14:55 Oxygen Delivery Method Mechanical Ventilator Weight: 126 lb 8.725 oz Body Mass Index (BMI) 23.1 Intake and Output for Last 24 Hours 11/10/19 11/11/19 11/12/19 23:59 23:59 23:59 Intake Total 573.33 / 573.33 Output Total 400 / 400 Balance 173.33 / 173.33 Laboratory Results 11/12/19 09:40: Urine Test Negative 11/12/19 13:29: Specimen Type JANICE, Sample Site R Radial, O2 % 100, VBG pH 7.34, VBG pO2 30, VBG O2 Sat (Calc) 53, VBG O2 Content 25, VBG Base Excess -2 L, POC Mix VBG pCO2 Pt Tmp 44.0, Respiration Rate 14, O2 Delivery Device Vent, Tidal Volume 400, POC PEEP 5, Blood Gas Notified Whom RN, Blood Gas Notified Time 1325 Current Medications Hydrocodone Bitart/Acetaminophen (Clear 5mg-325mg) 1 - 2 tablet PO Q6H PRN PRN PRN Reason: Pain Score 1-5/10 Chlorhexidine Gluconate () 15 ml PO BID [facility] Famotidine (Pepcid) 20 mg GT DAILY [facility] Lactated Ringer's () 1,000 mls @ 100 mls/hr IV .Q10H YOAN Last Admin: 11/12/19 15:45 Dose: 100 mls/hr Documented by: Propofol (Diprivan) 1,000 mg in 100 mls @ 3.066 mls/hr CONT INF .Q12H YOAN; Protocol Fentanyl () 100 mls @ 2.5 mls/hr IV UD YOAN; Protocol Ondansetron HCl (Zofran) 4 mg IM X1 PRN PRN Reason: NAUSEA Assessment/Plan All Active Problems RUQ abdominal pain (Acute) Acute respiratory failure with hypoxia (Acute) First degree perineal laceration during delivery (Resolved) History of gestational hypertension (Resolved) Anemia affecting (Resolved) The patient is a 39 y/o F w/ PMHx: Hx abnormal pap smear s/p LEEP, Chronic anemia, Recent missed at approximately 10 weeks s/p D+C who presented originally to the [facility] on 11/12/19 for planned operative intervention per Traci Vega with planned laparoscopic bilateral salpingectomy; however, following operative intervention without event with transition to the PACU, patient unable to be extubated. 1. Acute hypoxic respiratory failure, unable to be extubated postoperatively suspected secondary to possible underlying cholinesterase deficiency: Patient transition from PACU to the ICU given inability to extubate safely, rn pacu also consulted and following, continued intubated status, sedation although light with planned reassessment for extubation in a.m., current presentation suspected secondary to usage of rapid intubation with succinylcholine, will need further evaluation following, stable appearing labs. 2. Recent missed status post D&C, Recent laparoscopic bilateral salpingectomy: Patient with moderate amount of pain on examination s/p recent laparoscopic bilateral salpingectomy, continue PRN IV regimen as needed, gynecology primary service and defer to their their preference. 3. Chronic anemia: Admission hemoglobin 11.2, similar to prior recently noted in September 25- range, trend. 4. GERD: Maintained on famotidine. 5. DVT prophylaxis: Low risk, however if remains intubated will initiate Lovenox if cleared per primary service, gynecology. Code Visit Office Visits / Consults: [id number] IP Consult L3
[2019-11-12] MEDS: fentaNYL drip 100 ML 2.5 MCG IV (17:00)
[2019-11-12 17:11] LABS: Absolute Lymphocyte Count 0.39 X10^3/uL (0.83-4.51); Basophil# 0.02 X10^3/uL; Basophil% 0.2 % (0-1); Hematocrit 33.1 % (37-47); Hemoglobin 11.2 g/dL (12.0-15.0); Lymphocyte # 0.39 X10^3/ul (4.0); Lymphocyte % 4.5 % (19-41); Mean Corp Hgb Conc 33.8 g/dL (32-36); Mean Corpuscular Hgb 28.5 pg (27.0-32.0); Mean Corpuscular Volume 84.2 fL (81-99); Mean Platelet Vol. 9.9 fl (6.2-12.0); Monocyte# 0.12 X10^3/uL; Monocyte% 1.4 % (0-10); NRBC Flagged by Analyzer 0 % (0-5); Neutrophil # 8.01 X10^3/uL (2.7-7.7); Neutrophil % 93.4 % (47-70); POSITIVE DIFFERENTIAL YES; Platelet Count 206 K/mm3 (150-450); RBC Distribution Width CV 13.3 % (11.6-14.6); RBC Distribution Width SD 41.1 fl (35.1-43.9); Red Blood Count 3.93 M/mm3 (4.2-5.4); White Blood Count 8.6 K/mm3 (4.4-11.0)
[2019-11-12 17:15] LABS: Differential Indicated SCAN CRITERIA MET
[2019-11-12 17:22] LABS: Anion Gap 7 (5-15); BUN 11 mg/dL (7-18); BUN/Creat Ratio 22.4 RATIO (10-20); Calcium,Total 7.8 mg/dL (8.5-10.1); Chloride 106 mmol/L (98-107); Creatinine, Serum 0.49 mg/dL (0.55-1.02); EST Glomerular Filtration Rate 148 mL/min (>60); Est Glom Filt Rate - Afr Amer 179 mL/min (>60); Estimated Creatinine Clearance 120.71 ml/min; Glucose 111 mg/dL (74-106); Potassium 3.8 mmol/L (3.5-5.1); Sodium Level 135 mmol/L (136-145)
[2019-11-12 17:30] LABS: Allen Test POS; Blood Gas Specimen Type ART; FI02 50; Mode A-C; O2 Delivery Device Vent; PEEP 5; PO2 234 mmHG (75-100); RR 14; SITE L Radial; Time Given 1720; Vt 400; pCO2 35.4 mmHg (35-45); pH 7.42 (7.35-7.45)
[2019-11-12 17:31] LABS: Base Excess -2 mmol/L (-2 to +2); Bicarbonate 22.8 mmol/L (22-26); SO2 100 % (95-99); Total Carbon Dioxide 24 mmol/L
[2019-11-12 17:44] LABS: CPK Total, Creatine Kinase 79 U/L (26-192); Triglycerides 39 mg/dL
[2019-11-12 17:46] LABS: Platelet Estimate ADEQUATE (ADEQ); Red Cell Morphology NORM C+C NORMAL (NORM C&C)
[2019-11-12] MEDS: Chlorhexidine 15 ML PO (21:17)
[2019-11-13] VITALS (18 sets, daily range): BP systolic 95–137; BP diastolic 57–88; PULSE 65–122; RESP 13–22; TEMP 36.4–37.1; O2SAT 95–100
--- NOTE | 2019-11-13 00:10 | NURSING ---
Pt. attempted to void on the bedpan. No success. Bladder scan shows >507ml.
[2019-11-13] MEDS: Lactated Ringers 1,000 ML 100 ML IV ×2 (01:03→12:35)
--- NOTE | 2019-11-13 06:45 | NURSING ---
Pt. extubated by respiratory therapy. Placed on 2L NC. Pt. tolerated well.
--- NOTE | 2019-11-13 06:46 | PCM.PN.INT ---
Subjective: The patient was seen and examined at the bedside this morning. Events from the last 24 hours have been reviewed. The patient is currently afebrile, hemodynamically stable and maintaining appropriate oxygen saturations on spontaneous mode mechanical ventilation with an FiO2 requirement of 30%. The patient did well overnight from a nursing perspective. She passed her spontaneous breathing trial this morning. She is currently alert and appropriately interactive. She is able to follow commands without issue. Therefore, under my direct supervision, the patient was extubated at the bedside this morning. Objective: The patient's most recent lab work, culture data and imaging studies have all been personally reviewed. General: Alert, No apparent distress, - - Remains intubated and mechanically ventilated. HEENT: Atraumatic, PERRLA, Normocephalic Oral: No Gingival or Mucosal Lesions/ Ulcerations, - - Stable endotracheal tube. Neck: Supple, No Nodes, Trachea Midline Lungs: Normal air movement, No rhonchi, No wheeze, No rales Cardiovascular: Regular rate, Regular Rhythm, Normal S1, Normal S2, No murmurs Abdomen: Bowel Sounds Present, Soft, Non Tender Extremities: No clubbing, No cyanosis, No edema Skin: No breakdown Musculoskeletal: No Tenderness to Palpation of Joints or Extremities, No Muscle Wasting Lymphatic: No Cervical, Supraclavicular, or Inguinal Adenopathy Neurological: Neuro grossly intact, - - Following commands appropriately. Vital Signs Temp Pulse Resp BP Pulse Ox 98.7 F 97 15 113/88 H 100 11/13/19 04:00 11/13/19 06:00 11/13/19 06:00 11/13/19 06:00 11/13/19 06:00 Oxygen Delivery Method Mechanical Ventilator Weight: 126 lb 8.725 oz Body Mass Index (BMI) 23.1 Intake and Output for Last 24 Hours 11/11/19 11/12/19 11/13/19 23:59 23:59 23:59 Intake Total 1398.75 / 1403.75 595.22 / 595.22 Output Total 400 / 400 550 / 550 Balance 998.75 / 1003.75 45.22 / 45.22 Labs (Last 48 Hours) 11/12/19 11/12/19 11/12/19 09:40 13:29 16:55 WBC 8.6 RBC 3.93 L Hgb 11.2 L Hct 33.1 L MCV 84.2 MCH 28.5 MCHC 33.8 RDW Std Deviation 41.1 RDW Coeff of Gracie 13.3 Plt Count 206 MPV 9.9 Immature Gran % (Auto) 0.500 Neut % (Auto) 93.4 H Lymph % (Auto) 4.5 L [place] % (Auto) 1.4 Eos % (Auto) 0.0 Baso % (Auto) 0.2 Absolute Neuts (auto) 8.0 H Absolute Lymphs (auto) 0.39 L Nucleated RBC % 0 Differential Comment Platelet Estimate ADEQUATE RBC Morphology NORM C+C Specimen Type JANICE Sample Site R Radial pH Bicarbonate Actual POC Total CO2 Base Excess O2 Saturation O2 % 100 ABG pCO2 ABG pO2 Jaime Test VBG pH 7.34 VBG pO2 30 VBG O2 Sat (Calc) 53 VBG O2 Content 25 VBG Base Excess -2 L POC Mix VBG pCO2 Pt Tmp 44.0 Respiration Rate 14 O2 Delivery Device Vent Vent Mode Tidal Volume 400 POC PEEP 5 Blood Gas Notified Whom RN Blood Gas Notified Time 1325 Sodium Potassium Chloride Carbon Dioxide Anion Gap BUN Creatinine Estim Creat Clear Calc Est GFR (MDRD) Af Amer Est GFR (MDRD) Non-Af BUN/Creatinine Ratio Glucose Calcium Total Creatine Kinase Triglycerides Urine Test Negative 11/12/19 11/12/19 11/12/19 16:55 16:55 17:25 WBC RBC Hgb Hct MCV MCH MCHC RDW Std Deviation RDW Coeff of Gracie Plt Count MPV Immature Gran % (Auto) Neut % (Auto) Lymph % (Auto) [place] % (Auto) Eos % (Auto) Baso % (Auto) Absolute Neuts (auto) Absolute Lymphs (auto) Nucleated RBC % Differential Comment Platelet Estimate RBC Morphology Specimen Type ART Sample Site L Radial pH 7.42 Bicarbonate Actual 22.8 POC Total CO2 24 Base Excess -2 O2 Saturation 100 H O2 % 50 ABG pCO2 35.4 ABG pO2 234 H Jaime Test POS VBG pH VBG pO2 VBG O2 Sat (Calc) VBG O2 Content VBG Base Excess POC Mix VBG pCO2 Pt Tmp Respiration Rate 14 O2 Delivery Device Vent Vent Mode A-C Tidal Volume 400 POC PEEP 5 Blood Gas Notified Whom ICU MD Blood Gas Notified Time 1720 Sodium 135 L Potassium 3.8 Chloride 106 Carbon Dioxide 22.0 Anion Gap 7 BUN 11 Creatinine 0.49 L Estim Creat Clear Calc 120.71 Est GFR (MDRD) Af Amer 179 Est GFR (MDRD) Non-Af 148 BUN/Creatinine Ratio 22.4 H Glucose 111 H Calcium 7.8 L Total Creatine Kinase 79 Triglycerides 39 Urine Test Clinical Impression(s) from Imaging Studies Chest X-Ray 11/12/19 16:10 IMPRESSION: 1. Interval placement of endotracheal tube with the tip approximately 6 cm above the guy. 2. No active disease. Electronically Signed: Gerson Richard MD at 16:38 EST Tel , Service support , Medical Necessity - Tobacco Use Smoking Status: Never smoker Tobacco Use: Non-smoker Assessment/Plan All Active Problems RUQ abdominal pain (Acute) Acute respiratory failure with hypoxia (Acute) First degree perineal laceration during delivery (Resolved) History of gestational hypertension (Resolved) Anemia affecting (Resolved) RECOMMENDATIONS: 1. Proceed with a trial of extubation this morning. 2. Once extubated, wean supplemental oxygen to maintain saturations at or above 90%. 3. Consider laboratory testing for pseudocholinesterase deficiency on outpatient basis. 4. Encourage incentive spirometer use and mobilize patient as tolerated. 5. Bedside swallow evaluation and advance diet. 6. If the patient is able to be weaned from oxygen, tolerated diet and ambulate, she can be discharged home today from my perspective. IMPRESSIONS: 1. Postoperative respiratory failure The patient underwent an uncomplicated laparoscopic bilateral salpingectomy on November 12, during which time she did receive general anesthesia, including neuromuscular blocking agents. The patient had never previously been under general anesthesia before. Postoperatively, the patient did not demonstrate recovery from the neuromuscular blocking agents, despite reversal. Per anesthesia, there was concern for an underlying pseudocholinesterase deficiency. The patient remained on invasive mechanical ventilatory support until the morning of November 13, when she was successfully extubated. The patient will be weaned from supplemental oxygen. Bedside swallow evaluation will be completed and diet advanced accordingly. If the patient is able to be weaned from oxygen, tolerates a diet and is able to ambulate, she can be discharged home from my perspective. TIME: 36 minutes of critical care time, independent of procedures, was spent addressing the patient's postoperative respiratory failure, review of all data and collaboration with the care team. ([id number]) Code Visit 9xxxx: [id number] Critical care first hour
[2019-11-13] MEDS: Acetaminophen 325 MG Tablet 650 MG PO (08:07)
--- NOTE | 2019-11-13 08:35 | PN.OBGYN_ITS ---
Patient Problems: Active and Suspected Problems Acute respiratory failure with hypoxia (Acute) Subjective: pt seen at bedside, awake and extubated. pt reports doing well overall- sore throat. pt reports mild abdominal discomfort only. - Physical Exam Vitals/I&O's: Vital Signs Temp Pulse Resp BP Pulse Ox 98.7 F 122 H 18 113/88 H 100 11/13/19 04:00 11/13/19 06:45 11/13/19 06:45 11/13/19 06:00 11/13/19 06:45 Oxygen Flow Rate (L/min) 2 Oxygen Delivery Method Room Air Weight: 57.4 kg Body Mass Index (BMI) 23.1 Intake and Output for Last 24 Hours 11/11/19 11/12/19 11/13/19 23:59 23:59 23:59 Intake Total 1398.75 / 1403.75 595.22 / 595.22 Output Total 400 / 400 550 / 550 Balance 998.75 / 1003.75 45.22 / 45.22 General: Alert, Oriented x3 Abdomen: Soft, Non-Distended, - - incisions sites dry and intact Extremities: No Calf Tenderness Laboratory Results 11/12/19 09:40: Urine Test Negative 11/12/19 13:29: Specimen Type JANICE, Sample Site R Radial, O2 % 100, VBG pH 7.34, VBG pO2 30, VBG O2 Sat (Calc) 53, VBG O2 Content 25, VBG Base Excess -2 L, POC Mix VBG pCO2 Pt Tmp 44.0, Respiration Rate 14, O2 Delivery Device Vent, Tidal Volume 400, POC PEEP 5, Blood Gas Notified Whom RN, Blood Gas Notified Time 1325 11/12/19 16:55: WBC 8.6, RBC 3.93 L, Hgb 11.2 L, Hct 33.1 L, MCV 84.2, MCH 28.5, MCHC 33.8, RDW Std Deviation 41.1, RDW Coeff of Gracie 13.3, Plt Count 206, MPV 9 .9, Immature Gran % (Auto) 0.500, Neut % (Auto) 93.4 H, Lymph % (Auto) 4.5 L, [place] % (Auto) 1.4, Eos % (Auto) 0.0, Baso % (Auto) 0.2, Absolute Neuts (auto) 8.0 H, Absolute Lymphs (auto) 0.39 L, Nucleated RBC % 0, Differential Comment , Platelet Estimate ADEQUATE, RBC Morphology NORM C+C 11/12/19 16:55: Sodium 135 L, Potassium 3.8, Chloride 106, Carbon Dioxide 22.0, Anion Gap 7, BUN 11, Creatinine 0.49 L, Estim Creat Clear Calc 120.71, Est GFR (MDRD) Af Amer 179, Est GFR (MDRD) Non-Af 148, BUN/Creatinine Ratio 22.4 H, Glucose 111 H, Calcium 7.8 L 11/12/19 16:55: Total Creatine Kinase 79, Triglycerides 39 11/12/19 17:25: Specimen Type ART, Sample Site L Radial, pH 7.42, Bicarbonate Actual 22.8, POC Total CO2 24, Base Excess -2, O2 Saturation 100 H, O2 % 50, ABG pCO2 35.4, ABG pO2 234 H, Jaime Test POS, Respiration Rate 14, O2 Delivery Device Vent, Vent Mode A-C, Tidal Volume 400, POC PEEP 5, Blood Gas Notified Whom ICU MD, Blood Gas Notified Time 1720 Current Medications Acetaminophen (Tylenol) 650 mg PO Q6H PRN PRN PRN Reason: Pain Score 1-10/10 Last Admin: 11/13/19 08:07 Dose: 650 mg Documented by: Hydrocodone Bitart/Acetaminophen ([place] 5mg-325mg) 1 - 2 tablet PO Q6H PRN PRN PRN Reason: Pain Score 1-5/10 Lactated Ringer's () 1,000 mls @ 100 mls/hr IV .Q10H [facility] Last Admin: 11/13/19 07:53 Dose: Not Given Documented by: Ondansetron HCl (Zofran) 4 mg IM X1 PRN PRN Reason: NAUSEA Sodium Chloride () 10 - 40 ml IV UD PRN PRN Reason: SALINE FLUSH Medical Necessity - Tobacco Use Smoking Status: Never smoker Tobacco Use: Non-smoker Assessment/Plan All Active Problems RUQ abdominal pain (Acute) Acute respiratory failure with hypoxia (Acute) First degree perineal laceration during delivery (Resolved) History of gestational hypertension (Resolved) Anemia affecting (Resolved) POD#1 from uncomplicated laparoscopic bilateral salpingectomy- unable to extubate after surgery 1) Extubated this morning and doing well plan from Pulm/icu standpoin is dc home with follow up as outpatient for further testing ACH deficiency 2) surgical [employer] DEVELOPMENT REP standpoint stable and will follow up as scheduled 3) dc home after tolerating regular diet (swallow test) and voiding
[2019-11-13] MEDS: Ondansetron ODT 4 MG Tablet PO (09:58)
--- NOTE | 2019-11-13 11:44 | CASEMGMT ---
RN CM Assessment Note Presentation: Acute resp failure, s/p karlo lap salpingectomy. Intro role of CM and purpose of RN CM assessment. Demographics, PCP and Pharmacy verified. Pt is awake, alert and able to participate in assessment. Pt states she is very relieved her condition improved. Pt spoke of appreciating the care she received. No discharge concerns. PCP: no pcp. List of [facility] PCP's in [place] given to pt. Pt lives in [place], prefers to have [place] physician (vs [place]). Reviewed process for establishing with new physician. Specialists: Dr. Conteh Preferred Pharmacy: [facility] Insurance: [employer] Prescription Benefit: yes LNOK : , Reza Longo Living Arrangements: Lives independently in home. Transportation: drives or family can drive DME: none HHC: none Patient DC goals: Home today DC PLAN: Home today. RN CM advised to contact cm for any concerns/needs that may arise. Omi HEARDN RN ACM
[2019-11-13] MEDS: 0.9% Saline Lock 10 ML Syringe IV (11:45)
[2019-11-13] MEDS: proMETHazine 25 MG/ML Syringe 12.5 MG IV (11:45)
--- NOTE | 2019-11-13 11:53 | PN_ITS ---
Patient Problems: Active and Suspected Problems Acute respiratory failure with hypoxia (Acute) Subjective: She was seen and examined in ICU today, I talked with critical care as well as her [employer] physician, patient was extubated this morning, she has some hoarseness but does not complain of any shortness of breath or chest discomfort. She is currently on room air. - Physical Exam Vitals/I&O's: Vital Signs Temp Pulse Resp BP Pulse Ox 98.2 F 83 17 107/71 97 11/13/19 08:00 11/13/19 09:00 11/13/19 09:00 11/13/19 09:00 11/13/19 09:00 Oxygen Flow Rate (L/min) 2 Oxygen Delivery Method Room Air Weight: 57.4 kg Body Mass Index (BMI) 23.1 Intake and Output for Last 24 Hours 11/11/19 11/12/19 11/13/19 23:59 23:59 23:59 Intake Total 1398.75 / 1403.75 1165.22 / 1165.22 Output Total 400 / 400 550 / 550 Balance 998.75 / 1003.75 615.22 / 615.22 General: Alert, Oriented x3, Cooperative, No apparent distress, Well developed, Well nourished, - - Patient is hoarse HEENT: Atraumatic, PERRLA, EOMI, Normocephalic Oral: Moist Mucosa Neck: Supple, No JVD, Negative Carotid Bruits, Trachea Midline, Thyroid Normal Size and Texture Lungs: Clear to auscultation, Normal air movement, No rhonchi, No wheeze, No rales Cardiovascular: Regular rate, Regular Rhythm, Normal S1, Normal S2, No murmurs, PMI Normal, No rub noted Abdomen: Bowel Sounds Present, Soft, Non Tender, Non-Distended Extremities: No clubbing, No cyanosis, No edema, Capillary Refill Less than 3 Seconds Skin: No rashes, No breakdown Musculoskeletal: No Tenderness to Palpation of Joints or Extremities Neurological: Cranial nerves II-XII grossly intact, Neuro grossly intact, Sensory exam intact to light touch and pain, Coordination normal Psych/Mental Status: Normal Affect, Appropriate, Alert and oriented to time, place, person, mood and affect Laboratory Results 11/12/19 13:29: Specimen Type JANICE, Sample Site R Radial, O2 % 100, VBG pH 7.34, VBG pO2 30, VBG O2 Sat (Calc) 53, VBG O2 Content 25, VBG Base Excess -2 L, POC Mix VBG pCO2 Pt Tmp 44.0, Respiration Rate 14, O2 Delivery Device Vent, Tidal Volume 400, POC PEEP 5, Blood Gas Notified Whom RN, Blood Gas Notified Time 1325 11/12/19 16:55: WBC 8.6, RBC 3.93 L, Hgb 11.2 L, Hct 33.1 L, MCV 84.2, MCH 28.5, MCHC 33.8, RDW Std Deviation 41.1, RDW Coeff of Gracie 13.3, Plt Count 206, MPV 9.9, Immature Gran % (Auto) 0.500, Neut % (Auto) 93.4 H, Lymph % (Auto) 4.5 L, [place] % (Auto) 1.4, Eos % (Auto) 0.0, Baso % (Auto) 0.2, Absolute Neuts (auto) 8.0 H, Absolute Lymphs (auto) 0.39 L, Nucleated RBC % 0, Differential Comment , Platelet Estimate ADEQUATE, RBC Morphology NORM C+C 11/12/19 16:55: Sodium 135 L, Potassium 3.8, Chloride 106, Carbon Dioxide 22.0, Anion Gap 7, BUN 11, Creatinine 0.49 L, Estim Creat Clear Calc 120.71, Est GFR (MDRD) Af Amer 179, Est GFR (MDRD) Non-Af 148, BUN/Creatinine Ratio 22.4 H, Glucose 111 H, Calcium 7.8 L 11/12/19 16:55: Total Creatine Kinase 79, Triglycerides 39 11/12/19 17:25: Specimen Type ART, Sample Site L Radial, pH 7.42, Bicarbonate Actual 22.8, POC Total CO2 24, Base Excess -2, O2 Saturation 100 H, O2 % 50, ABG pCO2 35.4, ABG pO2 234 H, Jaime Test POS, Respiration Rate 14, O2 Delivery Device Vent, Vent Mode A-C, Tidal Volume 400, POC PEEP 5, Blood Gas Notified Whom ICU , Blood Gas Notified Time 1720 Current Medications Acetaminophen (Tylenol) 650 mg PO Q6H PRN PRN PRN Reason: Pain Score 1-10/10 Last Admin: 11/13/19 08:07 Dose: 650 mg Documented by: Hydrocodone Bitart/Acetaminophen ([place] 5mg-325mg) 1 - 2 tablet PO Q6H PRN PRN PRN Reason: Pain Score 1-5/10 Lactated Ringer's () 1,000 mls @ 100 mls/hr IV .Q10H Y[facility] Last Infusion: 11/13/19 11:12 Dose: Infused Documented by: Ondansetron HCl (Zofran) 4 mg IM X1 PRN PRN Reason: NAUSEA Ondansetron HCl (Zofran Odt) 4 mg PO Q6H PRN PRN Reason: NAUSEA Last Admin: 11/13/19 09:58 Dose: 4 mg Documented by: Promethazine HCl (Phenergan) 12.5 mg IV Q4H PRN PRN PRN Reason: NAUSEA/VOMITING Last Admin: 11/13/19 11:45 Dose: 12.5 mg Documented by: Sodium Chloride () 10 - 40 ml IV UD PRN PRN Reason: SALINE FLUSH Last Admin: 11/13/19 11:45 Dose: 20 ml Documented by: Medical Necessity - Tobacco Use Smoking Status: Never smoker Tobacco Use: Non-smoker Assessment/Plan All Active Problems RUQ abdominal pain (Acute) Acute respiratory failure with hypoxia (Acute) First degree perineal laceration during delivery (Resolved) History of gestational hypertension (Resolved) Anemia affecting (Resolved) #1 acute hypoxic respiratory failure-etiology unknown, patient has been extubated this morning and appears medically stable, according to critical care, she could be discharged to home-I have notified Dr. Parada #2 chronic anemia #3 GERD Code Visit Inpatient E&M: 51478 Subs Hosp L2
[2019-11-13] MEDS: Scopolamine 1mg/72hr Patch 1 PATCH TD (14:45)
== END 2019-11-13 15:15 | disposition home or self-care (01) | DRG 951 ==
LOC: SDC 11-13 06:33 → ICU 11-13 06:33
PROVIDERS: Internal Medicine Critical Care Medicine; Admitting Provider Obstetrics & Gynecology; Referring Provider Obstetrics & Gynecology; Visit Provider Internal Medicine
PROC: 0UT74ZZ Resection of Bilateral Fallopian Tubes, Percutaneous Endoscopic Approach (ICD-10-PCS; CPT 58661; principal; 2019-11-12 10:40)
DX: J96.01 Acute respiratory failure with hypoxia (principal); T48.1X5A Adverse effect of skeletal muscle relaxants [neuromuscular blocking agents], initial encounter; Y92.238 Other place in hospital as the place of occurrence of the external cause; E88.09 Other disorders of plasma-protein metabolism, not elsewhere classified; K21.9 Gastro-esophageal reflux disease without esophagitis; Z30.2 Encounter for sterilization; Z87.891 Personal history of nicotine dependence
CPT/HCPCS: 31720; 36600; 71045; 80048; 81025; 82550; 82803; 84478; 85025; 88302; 94002; 94003; 94660; 97162; 97802; J7120; A4216; J2310; J2405